=== PATIENT | male | born 1975 | race Caucasian/White ===

== ENCOUNTER 2022-06-07 10:30 | Emergency (ER) | payer BC, SELFPAY ==
--- NOTE | 2022-06-07 | CRLHL7_ITS ---
For Patients: As a result of the Century Cures Act, medical imaging exams and procedure reports are released immediately into your electronic medical record. You may view this report before your referring provider. If you have questions, please contact your health care provider. DATE: 06/07/2022. CLINICAL HISTORY: Headache. TECHNIQUE: Standard helical CT image acquisition of the brain was performed. COMPARISON: None available. FINDINGS: There is no intracranial hemorrhage. No extra-axial collection, mass effect, or midline shift. Mullen-white matter differentiation is preserved. The ventricles are normal in size and morphology for patient age. The calvarium is unremarkable. The orbits are unremarkable. Mild mucosal thickening of the maxillary sinuses with a mucous retention cyst in the left maxillary sinus. The mastoid air cells are unremarkable. The soft tissues are unremarkable. IMPRESSION: No CT evidence of acute intracranial abnormality. Please note that all CT scans at this facility use dose modulation, iterative reconstruction, and/or weight-based dosing when appropriate to reduce radiation dose to as low as reasonably achievable. Dictated by Pedro Ren MD @ 06/07/2022 12:29:17 PM (Electronically Signed)
[2022-06-07 10:35] VITALS: BP 126/83; PULSE 62; RESP 20; TEMP 36.3; O2SAT 99; BMI 40.4
--- NOTE | 2022-06-07 10:57 | CRLHL7_ITS ---
For Patients: As a result of the Century Cures Act, medical imaging exams and procedure reports are released immediately into your electronic medical record. You may view this report before your referring provider. If you have questions, please contact your health care provider. DATE: 06/07/2022. CLINICAL HISTORY: Headache; concern for vertebral artery dissection. TECHNIQUE: Standard helical CT image acquisition through the head and neck following the administration of intravenous contrast was performed. Multiplanar reconstructed images performed on a separate workstation. COMPARISON: None available. FINDINGS: The great vessels are patent. The common carotid arteries are patent. The proximal ICAs are patent without signficant stenoses by NASCET criteria. The more distal cervical ICAs are patent. The origins of the vertebral arteries are patent. The cervical segments of the vertebral arteries are patent. The petrous, cavernous, and supraclinoid segments of the internal carotid arteries are patent. The anterior and middle cerebral arteries are patent. The anterior communicating artery is visualized and is within normal limits. The intracranial vertebral arteries, basilar trunk, and posterior cerebral arteries are patent. No intracranial proximal large vessel occlusion or flow-limiting luminal stenosis. No evidence of cerebral aneurysm. No findings to suggest an arterial-venous shunting lesion. IMPRESSION: 1. No intracranial proximal large vessel occlusion or flow-limiting luminal stenosis. 2. Patent cervical arterial vasculature without hemodynamically significant luminal stenosis. Please note that all CT scans at this facility use dose modulation, iterative reconstruction, and/or weight-based dosing when appropriate to reduce radiation dose to as low as reasonably achievable. Dictated by Pedro Ren MD @ 06/07/2022 12:37:19 PM (Electronically Signed)
--- NOTE | 2022-06-07 10:57 | CRLHL7_ITS ---
For Patients: As a result of the Cures Act, medical imaging exams and procedure reports are released immediately into your electronic medical record. You may view this report before your referring provider. If you have questions, please contact your health care provider. DATE: 06/07/2022. CLINICAL HISTORY: Headache and neck pain. TECHNIQUE: Helical CT acquisition of the cervical spine was performed. Coronal and sagittal reformations were performed and interpreted. COMPARISON: None available. FINDINGS: There is no evidence of acute displaced fracture or traumatic malalignment of the cervical spine. The facets are well aligned. Vertebral body heights are maintained without evidence of significant compression deformity. No evidence of significant trauma at the craniocervical junction. Cervical spondylosis with straightening of the alignment of the cervical spine which may reflect patient positioning versus muscle spasm. No evidence of severe spinal canal stenosis. The visualized prevertebral soft tissues are unremarkable. IMPRESSION: 1. No acute displaced fracture or traumatic malalignment of the cervical spine. 2. Cervical spondylosis without evidence of severe spinal canal stenosis. Please note that all CT scans at this facility use dose modulation, iterative reconstruction, and/or weight-based dosing when appropriate to reduce radiation dose to as low as reasonably achievable. Dictated by Pedro Ren MD @ 06/07/2022 12:34:46 PM (Electronically Signed)
--- NOTE | 2022-06-07 11:09 | ED.GENADULT ---
HPI - General Adult General Chief complaint: Headache/Migraine Stated complaint: Headaches after going to chiro Time Seen by Provider: 06/07/22 10:38 History of Present Illness HPI narrative: Patient is a 46 year white male who has a history of headaches from an accident. He started to get them in 2019 in 2020. He had a little bit of a headache this week went to a chiropractor had some thumping type procedure done, subsequently had severe neck pain and headache in his occipital area, went back to the chiropractor and got manipulation. He seems a little bit better reports his pain is a 2/10 right now in terms of in his occipital area. He does not have any radicular symptoms, has no chills, fever, thunderclap nature to his neck discomfort but he did report the headache started fairly suddenly lasted for about 20 minutes and then got somewhat improved. He denies neurologic symptoms during that time he felt he could not drive at that time. His vision was normal and no loss of consciousness. His is a nurse at as long-term care and she was concerned as hers is family history of aneurysms in the family. He is generally quite healthy, has no hypertension, takes no home medications Related Data Allergies Allergy/AdvReac Type Severity Reaction Status Date / Time No Known Drug Allergies Allergy Verified 06/07/22 10:35 Review of Systems Status of ROS: Reports: 10 or more systems reviewed and unremarkable except as noted in History and below PFSH PFS Social History Smoking Status: Former smoker What tobacco products do you use: cigarettes Years smoked: 26 Do you use any of these nicotine containing products: None Second hand tobacco smoke exposure: Yes How often do you have a drink containing alcohol: 2-4 times a month How many standard drinks containing alcohol do you have on a typical day: 3 or 4 How often do you have six or more drinks on one occasion: Never AUDIT-C Alcohol total score: 3 Non-prescribed substance use: denies use service: No Exam Narrative: Exam Narrative: Objective: Vital signs unremarkable HEENT is unremarkable facial asymmetry pupils react to light extraocular moves intact Neck is supple nontender full range of motion Occipital area shows no tenderness or redness or rash Neurologic nonfocal upper extremities pulse regular Good peripheral perfusion noted skin warm and dry. Const: Vital Signs, click to edit/add: Vital Signs - 24 hr 06/07/22 10:35 06/07/22 12:00 06/07/22 12:30 Temperature 97.3 F L Pulse Rate [Pulse Oximeter] 62 65 68 Respiratory Rate 20 20 20 Blood Pressure [Ri ght Forearm] 126/83 126/83 141/89 H Pulse Oximetry 99 98 97 Oxygen Delivery Me thod Room Air Room Air Course Vital Signs Vital signs: Initial Vital Signs Temperature 97.3 F L 06/07/22 10:35 Temperature Source Temporal Artery Scan 06/07/22 10:35 Pulse Rate 62 06/07/22 10:35 Pulse Rhythm 06/07/22 10:35 Respiratory Rate 20 06/07/22 10:35 Blood Pressure 126/83 06/07/22 10:35 Blood Pressure Mean 97 06/07/22 10:35 Pulse Oximetry 99 06/07/22 10:35 Oxygen Delivery Method 06/07/22 10:35 Vital Signs Temperature 97.3 F L 06/07/22 10:35 Pulse Rate 62 06/07/22 10:35 Respiratory Rate 20 06/07/22 10:35 Blood Pressure 126/83 06/07/22 10:35 Pulse Oximetry 99 06/07/22 10:35 Oxygen Delivery Method 06/07/22 10:35 Temperature 97.3 F L 06/07/22 10:35 Pulse Rate 68 06/07/22 12:30 Respiratory Rate 20 06/07/22 12:30 Blood Pressure 141/89 H 06/07/22 12:30 Pulse Oximetry 97 06/07/22 12:30 Oxygen Delivery Method 06/07/22 12:00 Medical Decision Making [facility] Narrative Medical decision making narrative: Patient is a 46-year-old male with sudden onset of headache after chiropractic treatment. He has had a history of headaches, but this seems a little different than past headaches he has had a little residual neck discomfort. I think initially he did not have manipulation, but the 2nd visit after his headache he did have manipulation, and I think ruling out vertebral artery dissection would be appropriate as well as any injury to the neck or head. Will do a head CT as well as CTA of the head neck, and had dedicated neck CT scan. Will give him IV fluid 2 mg of IV morphine, check labs. Disposition pending findings above. Addendum: The patient's CT of the neck and head in vasculature of the neck were unremarkable. His labs look relatively reassuring. He feels like his headache as 04/08. He I think is had a complete workup, will given additional Toradol to 30 mg IV. He will follow-up with Dr. Ye next Thursday, and will continue some ibuprofen and Tylenol as needed. He will return if there is problems or concerns. Lab Data Labs: Lab Results 06/07/22 06/07/22 06/07/22 Range/Units 11:10 11:10 11:10 WBC 9.09 (4.50-11.00) K/uL RBC 5.15 (4.30-5.90) m/uL Hgb 14.9 (13.5-17.5) gm/dL Hct 44.6 (37.0-53.0) % MCV 87 (80-100) fL MCH 29 (26-34) pg MCHC 33 (32-36) gm/dL RDW Coeff of Caryn 13.0 (11.5-15.5) % Plt Count 234 (140-440) K/uL Neut % (Auto) 55.2 (42.0-72.0) % Lymph % (Auto) 31.1 (20-44) % [place] % (Auto) 9.7 (0.0-11.0) % Eos % (Auto) 3.3 (0.0-7.0) % Baso % (Auto) 0.4 (0.0-3.0) % Neut # (Auto) 5.01 (1.7-7.0) K/uL Lymph # (Auto) 2.83 (0.90-2.90) K/uL [place] # (Auto) 0.90 (0.00-0.90) K/UL Eos # (Auto) 0.30 (0.00-0.50) K/uL Baso # (Auto) 0.04 (0.00-0.30) K/uL Sodium 139 (135-149) mmol/L Potassium 4.4 (3.6-5.1) mmol/L Chloride 106 (96-114) mmol/L Carbon Dioxide 28 (20-32) mmol/L BUN 12 (5-24) mg/dL Creatinine 1.0 (0.5-1.5) mg/dL Estimated Creat Clear 97.26 Estimated GFR 93 ml/min Glucose 116 H (60-115) mg/dL Calcium 8.7 (8.4-10.6) mg/dL Total Bilirubin 0.6 (0.1-1.5) mg/dL Direct Bilirubin 0.2 (0.0-0.5) mg/dL AST 44 H (12-35) U/L ALT 73 H (4-50) U/L Alkaline Phosphatase 79 (40-150) U/L C-Reactive Protein 0.7 (0.5-1.0) mg/dL Total Protein 6.9 (6.0-8.3) g/dL Albumin 4.1 (3.3-5.0) g/dL Discharge Plan Discharge Clinical Impression: Headache, Neck pain Patient Disposition: Home w/ Parent or Adult Condition: Improved Additional Instructions: Light activity for a couple of days, follow-up with Dr. Ye scheduled. Tylenol Advil as needed. Return if problems concerns worsening. Activity Level: Light activity Discharge Diet: Regular Follow Up/Referrals: Clinton Torre MD [Primary Care Provider] - Stand Alone Forms: giftee Info Instructions
[2022-06-07 11:18] LABS: Basophils Absolute Auto 0.04 K/uL (0.00-0.30); Basophils Percent Auto 0.4 % (0.0-3.0); Eosinophils Percent Auto 3.3 % (0.0-7.0); Hematocrit 44.6 % (37.0-53.0); Hemoglobin* 14.9 gm/dL (13.5-17.5); Immature Granulocytes Abs Auto 0.03 K/uL (0.00-0.30); Immature Granulocytes Pct Auto 0.3 %; Lymphocytes Absolute Auto 2.83 K/uL (0.90-2.90); Lymphocytes Percent Auto 31.1 % (20-44); Mean Corpuscular HGB Conc 33 gm/dL (32-36); Mean Corpuscular Hemoglobin 29 pg (26-34); Mean Corpuscular Volume 87 fL (80-100); Monocytes Percent Auto 9.7 % (0.0-11.0); Neutrophils Absolute Auto 5.01 K/uL (1.7-7.0); Neutrophils Percent Auto 55.2 % (42.0-72.0); Platelet Count* 234 K/uL (140-440); Red Blood Count 5.15 m/uL (4.30-5.90); White Blood Count* 9.09 K/uL (4.50-11.00)
[2022-06-07 11:20] LABS: Slide Review Reflex No
[2022-06-07] MEDS: MORPHINE 4 MG/ML INJ 2 MG IVP (11:34)
[2022-06-07] MEDS: 0.9 % SODIUM CHLORIDE 1000 ml 1,000 ML 6000 ML IV (11:34)
[2022-06-07] MEDS: METHYLPREDNISOLONE SOD SUCC 62.5 MG/ML (125) 125 MG IVP (11:34)
[2022-06-07 11:37] LABS: Chloride* 106 mmol/L (96-114); Potassium* 4.4 mmol/L (3.6-5.1); Sodium* 139 mmol/L (135-149)
[2022-06-07 11:40] LABS: Blood Urea Nitrogen* 12 mg/dL (5-24); Calcium* 8.7 mg/dL (8.4-10.6); Carbon Dioxide* 28 mmol/L (20-32); Est. Creatinine Clearance* 97.26; Estimated Glomerular Filt Rate 93 ml/min; Glucose* 116 mg/dL (60-115)
[2022-06-07 11:48] LABS: Albumin* 4.1 g/dL (3.3-5.0)
[2022-06-07 11:51] LABS: Bilirubin Direct* 0.2 mg/dL (0.0-0.5); Bilirubin Total* 0.6 mg/dL (0.1-1.5)
[2022-06-07 11:52] LABS: Alanine Aminotransferase* 73 U/L (4-50); Alkaline Phosphatase* 79 U/L (40-150); Aspartate Amino Transferase* 44 U/L (12-35); Total Protein* 6.9 g/dL (6.0-8.3)
[2022-06-07 11:54] LABS: C Reactive Protein* 0.7 mg/dL (0.5-1.0)
[2022-06-07 12:00] VITALS: BP 126/83; PULSE 65; RESP 20; O2SAT 98
[2022-06-07 12:30] VITALS: BP 141/89; PULSE 68; RESP 20; O2SAT 97
[2022-06-07] MEDS: KETOROLAC 30 MG/ML inj IVP (12:57)
== END 2022-06-07 13:03 | disposition home or self-care (01) ==
PROVIDERS: Emergency Provider Family Medicine; PCP Family Medicine
DX: R51.9 Headache, unspecified (principal); M54.2 Cervicalgia
CPT/HCPCS: 36415; 70450; 70496; 70498; 72125; 80048; 80076; 85025; 86140; 96374; 96375; 96376; 99284; J1885; J2270; J2930; J7030; Q9967

== ENCOUNTER 2023-07-15 11:20 | Outpatient (CLI) | payer BC, SELFPAY ==
--- OUTSIDE RECORDS SUMMARY | 2023-07-20 09:03 | XMS_ITS | Encounter Summary ---
Author Name Unknown Organization [facility] Address [address] [place] [address] Care Team Providers Care Systems Test Technician Name Role Phone Binu Torre MD Primary Care Provider Encounter Details Date Type Department Care Team (Late st Contact Info) Description 05/23/2016 Consent for Procedure/Treatme nt [facility] INFORMED CONSENT RECORD Social History Tobacco Use Types Packs/Day Years Used Date Smoking Tobacco: Every Day Cigarettes 1 20 Smokeless Tobacco: Former Comments:3-4 cigarettes/day, trying to quit Alcohol Use Standard Drinks/Week Comments No 0 (1 standard drink = 0.6 oz pur e alcohol) few drinks, every few weekends Sex and Gender Information Value Date Recorded Sex Assigned at Not on file Gender Identity Not on file Sexual Orientation Not on file documented as of this encounter Plan of Treatment Not on file documented as of this encounter Visit Diagnoses Not on filedocumented in this encounter Care Teams Systems Test Technician Relationship Specialty Start Date End Date Binu Torre MD [facility] [address] [place] [id number] PCP - General Family Practice 11/07/16 documented as of this encounter
--- OUTSIDE RECORDS SUMMARY | 2023-07-20 09:03 | XMS_ITS | Encounter Summary ---
Author Name Unknown Organization [facility] Address [address] [place] [address] Care Team Providers Care Precision Structural Metal Fitter Name Role Phone Binu Torre MD Primary Care Provider [phone] Encounter Details Date Type Department Care Team (Late st Contact Info) Description 10/14/2016 Consent for Procedure/Treatme nt [facility] INFORMED [...] on filedocumented in this encounter Care Teams Precision Structural Metal Fitter Relationship Specialty Start Date End Date Binu Torre MD [facility] [address] [place] [address] PCP - General Family Practice 11/07/16 documented as of this encounter
--- OUTSIDE RECORDS SUMMARY | 2023-07-20 09:03 | XMS_ITS | Encounter Summary ---
Author Name Unknown Organization [facility] Address [address] [place] [address] Care Team Providers Care Agricultural Service Technician Name Role Phone Binu Torre MD Primary Care Provider [phone] Encounter Details Date Type Department Care Team (Late st Contact Info) Description 10/25/2015 Consent for Procedure/Treatme nt [facility] INFORMED CONSENT RECORD Social History Tobacco Use Types Packs/Day Years Used Date Smoking Tobacco: Every Day Cigarettes Comments:3-4 cigarettes/day, trying to quit Alcohol Use [...] on filedocumented in this encounter Care Teams Agricultural Service Technician Relationship Specialty Start Date End Date Binu Torre MD [facility] [address] [place] [address] PCP - General Family Practice 11/07/16 documented as of this encounter
--- OUTSIDE RECORDS SUMMARY | 2023-07-20 09:03 | XMS_ITS | Encounter Summary ---
Author Name Unknown Organization [facility] Address [address] [place] [address] Care Team Providers Care Sales Closer Name Role Phone Binu Torre MD Primary Care Provider [phone] Encounter Details Date Type Department Care Team (Late st Contact Info) Description 04/02/2016 Correspondence [facility] [address] [place] [id number] Radiology, Provider MRI SAFETY SHEET AND COMPATIBILITY FORM Social History Tobacco Use Types Packs/Day Years [...] on filedocumented in this encounter Care Teams Sales Closer Relationship Specialty Start Date End Date Binu Torre MD [facility] [address] [place] [address] PCP - General Family Practice 11/07/16 documented as of this encounter
--- OUTSIDE RECORDS SUMMARY | 2023-07-20 09:03 | XMS_ITS | Encounter Summary ---
Author Name Unknown Organization [facility] Address [address] [place] [address] Care Team Providers Care Metal Bending Machine Operator Name Role Phone Binu Torre MD Primary Care Provider [phone] Encounter Details Date Type Department Care Team (Late st Contact Info) Description 09/08/2015 Correspondence [facility] [address] [place] [id number] Radiology, Provider MRI SAFETY SHEET AND COMPATIBILITY FORM Social History Tobacco Use Types Packs/Day Years Used Date Smoking Tobacco: Never Assessed Sex and Gender Information Value Date Recorded Sex Assigned at Not on file Gender Identity Not on file Sexual Orientation Not on file documented as of this encounter Plan of Treatment Not on file documented as of this encounter Visit Diagnoses Not on filedocumented in this encounter Care Teams Metal Bending Machine Operator Relationship Specialty Start Date End Date Binu Torre MD [facility] [address] [place] [address] PCP - General Family Practice 11/07/16 documented as of this encounter
--- OUTSIDE RECORDS SUMMARY | 2023-07-20 09:03 | XMS_ITS | Encounter Summary ---
Author Name Unknown Organization [facility] Address [address] [place] [address] Care Team Providers Care Book Salesman Name Role Phone Binu Torre MD Primary Care Provider [phone] Encounter Details Date Type Department Care Team (Late st Contact Info) Description 11/27/2015 [facility] [address] [facility] [place] [address] Leo Lujan, DO [address] [place] [address] MEDICAL STATUS Social History Tobacco Use Types Packs/Day Years Used Date Smoking Tobacco: Every Day Cigarettes 1 20 Comments:3-4 cigarettes/day, trying to quit Alcohol Use [...] on filedocumented in this encounter Care Teams Book Salesman Relationship Specialty Start Date End Date Binu Torre MD [facility] [address] [place] [address] PCP - General Family Practice 11/07/16 documented as of this encounter
--- OUTSIDE RECORDS SUMMARY | 2023-07-20 09:03 | XMS_ITS | Encounter Summary ---
Author Name Unknown Organization [facility] Address [address] [place] [address] Care Team Providers Care Supervisor Telephone Answering Service Name Role Phone Binu Torre MD Primary Care Provider [phone] Encounter Details Date Type Department Care Team (Late st Contact Info) Description 07/02/2016 [facility] [address] [facility] [place] [address] Leo Lujan, DO [address] [place] [address] CONFIRMATION OF ORDER Social History Tobacco Use Types Packs/Day Years [...] on filedocumented in this encounter Care Teams Supervisor Telephone Answering Service Relationship Specialty Start Date End Date Binu Torre MD [facility] [address] [place] [address] PCP - General Family Practice 11/07/16 documented as of this encounter
--- OUTSIDE RECORDS SUMMARY | 2023-07-20 09:03 | XMS_ITS | Encounter Summary ---
Author Name Unknown Organization [facility] Address [address] [place] [address] Care Team Providers Care 8Th Grade Teacher Name Role Phone Binu Torre MD Primary Care Provider [phone] Encounter Details Date Type Department Care Team (Late st Contact Info) Description 09/25/2015 Consent for Procedure/Treatment [facility] Social History Tobacco Use Types Packs/Day Years [...] on filedocumented in this encounter Care Teams 8Th Grade Teacher Relationship Specialty Start Date End Date Binu Torre MD [facility] [address] [place] [address] PCP - General Family Practice 11/07/16 documented as of this encounter
--- OUTSIDE RECORDS SUMMARY | 2023-07-20 09:03 | XMS_ITS | Encounter Summary ---
Author Name Unknown Organization [facility] Address [address] [place] [address] Care Team Providers Care Seat Covers Trimmer Name Role Phone Binu Torre MD Primary Care Provider Encounter Details Date Type Department Care Team (Late st Contact Info) Description 09/10/2015 Consent for Procedure/Treatme nt [facility] INFORMED CONSENT RECORD Social History Tobacco Use Types Packs/Day Years Used Date Smoking Tobacco: Every Day Cigarettes Comments:2-3 cigarettes/day, trying to quit Alcohol Use Standard Drinks/Week Comments Yes 0 (1 standard drink = 0.6 oz [...] on filedocumented in this encounter Care Teams Seat Covers Trimmer Relationship Specialty Start Date End Date Binu Torre MD [facility] [address] [place] [address] PCP - General Family Practice 11/07/16 documented as of this encounter
--- OUTSIDE RECORDS SUMMARY | 2023-07-20 09:03 | XMS_ITS | Encounter Summary ---
Author Name Unknown Organization [facility] Address [address] [place] [address] Care Team Providers Care Timber Deadener Name Role Phone Binu Torre MD Primary Care Provider [phone] Encounter Details Date Type Department Care Team (Late st Contact Info) Description 10/03/2015 [facility] [address] [facility] [place] [address] Leo Lujan, DO [address] [place] [address] CONFIRMATION OF ORDER Social History Tobacco Use [...] on filedocumented in this encounter Care Teams Timber Deadener Relationship Specialty Start Date End Date Binu Torre MD [facility] [address] [place] [address] PCP - General Family Practice 11/07/16 documented as of this encounter
--- OUTSIDE RECORDS SUMMARY | 2023-07-20 09:03 | XMS_ITS | Encounter Summary ---
Author Name Unknown Organization [facility] Address [address] [place] [address] Care Team Providers Care Relay Tester Helper Name Role Phone Binu Torre MD Primary Care Provider [phone] Encounter Details Date Type Department Care Team (Late st Contact Info) Description 05/23/2016 [facility] [address] [facility] [place] [address] Leo Lujan, DO [address] [place] [address] ARTHROSCOPY Social History Tobacco Use Types Packs/Day Years [...] on filedocumented in this encounter Care Teams Relay Tester Helper Relationship Specialty Start Date End Date Binu Torre MD [facility] [address] [place] [address] PCP - General Family Practice 11/07/16 documented as of this encounter
--- OUTSIDE RECORDS SUMMARY | 2023-07-20 09:03 | XMS_ITS | Encounter Summary ---
Author Name Unknown Organization [facility] Address [address] [place] [address] Care Team Providers Care Steam Boiler Fireman Name Role Phone Binu Torre MD Primary Care Provider [phone] Encounter Details Date Type Department Care Team (Late st Contact Info) Description 05/06/2016 Consent for Procedure/Treatment [facility] Social History [...] on filedocumented in this encounter Care Teams Steam Boiler Fireman Relationship Specialty Start Date End Date Binu Torre MD [facility] [address] [place] [address] PCP - General Family Practice 11/07/16 documented as of this encounter
--- OUTSIDE RECORDS SUMMARY | 2023-07-20 09:03 | XMS_ITS | Clinical Summary ---
Author Name Unknown Organization [facility] Address [address] [address] Care Team Providers Care Laboratory Administrative Director Name Role Phone Binu Torre MD Primary Care Provider [phone] Source Comments You are receiving this document as you are listed as the primary care provider,follow-up provider, or the patient has been referred to you for consultation.This is in compliance with the Medicare and[facility] EHR Incentive Program,which states Providers who transition their patient to another setting of careor provider of care or refers their patient to another provider of care shouldprovide summary care record for each transition of care or referral. [facility] Allergies No known active allergies Medications Medication Sig Dispensed Refills Start Date End Date Status omega-3 fatty acids (AKA MAXEPA, FISH OIL) 1000 MG capsule Take 2 g by mouth daily. Reported on 04/01/2016 Active Multiple Vitamins-Iron (MULTIVITAMIN/IRON OR) Reported on 04/01/2016 Acti ve methocarbamol (AKA ROBAXIN) 500 MG tablet Take 1 Tab by mouth three times a day. 90 Tab 1 09/11/2015 Active Additional Information Patient not taking.Reported on 11/20/2016 sennosides-docusate sodium (AKA SENNA-S,SENNA PLUS) 8.6-50 MG tablet Take 2 Tabs by mouth two times a day. For constipation while taking narcotic medications, hold for loose stool 60 Tab 1 09/11/2015 Active Additional Information Patient not taking.Reported on 11/20/2016 polyethylene glycol (AKA MIRALAX) packet Take 1 Packet by mouth two times a day. 12 Each 0 09/12/2015 Active Additional Information Patient not taking.Reported on 01/13/2017 acetaminophen (AKA TYLENOL EXTRA STRENGTH) 500 MG tablet Take 2 Tabs by mouth three times a day. 100 Tab 3 10/10/2015 Active Additional Information Patient not taking.Reported on 11/20/2016 oxyCODONE (ROXICODONE) 5 MG immediate release tablet Take 1 Tab by mouth every 6 hours as needed for Pain. 10 Tab 0 11/07/2015 Active Additional Information Patient not taking.Reported on 01/13/2017 MORphine (MS CONTIN) 15 MG 12 hour release tablet Take 1 Tab by mouth two times a day. 10 Tab 0 11/15/2015 Active Additional Information Patient not taking.Reported on 11/20/2016 acetaminophen (TYLENOL) 500 MG tabletIndications:F ever,Pain Take 2 Tabs by mouth three times a day as needed for Pain. Indications: Fever, Pain 100 Tab 3 11/16/2015 Active Additional Information Patient not taking.Reported on 11/20/2016 aspirin 325 MG tabletIndications:B lood thinning properties Take 1 Tab by mouth daily. Indications: Blood thinning properties 40 Tab 0 11/16/2015 Active Additional Information Patient not taking.Reported on 11/20/2016 sennosides-docusate sodium (SENNA-S,SENNA PLUS) 8.6-50 MG per tabletIndications:C onstipation Take 2 Tabs by mouth two times daily as needed for Constipation. Indications: Constipation 60 Tab 0 11/16/2015 Active Additional Information Patient not taking.Reported on 11/20/2016 hydrOXYzine HCl (ATARAX) 25 MG tabletIndications:P ain,itching Take 1 Tab by mouth every 8 hours as needed for Itching or Pain. Indications: Pain, itching 40 Tab 0 12/27/2015 Active Additional Information Patient not taking.Reported on 11/20/2016 oxyCODONE (ROXICODONE) 5 MG immediate release tabletIndications:A cute Pain Take 1 Tab by mouth every 8 hours as needed for Pain. Indications: Acute Pain 30 Tab 0 12/27/2015 Active Additional Information Patient not taking.Reported on 11/20/2016 oxyCODONE (ROXICODONE) 5 MG immediate release tabletIndications:A cute Pain Take 1-2 Tabs by mouth every 4 hours as needed for Pain. Indications: Acute Pain 40 Tab 0 05/23/2016 Active Additional Information Patient not taking.Reported on 11/20/2016 oxyCODONE (ROXICODONE) 5 MG immediate release tablet Take 1 Tab by mouth every 6 hours as needed for Pain. 30 Tab 11/07/2016 Active Additional Information Patient not taking.Reported on 11/20/2016 ketorolac (TORADOL) 10 MG tablet Take 1 Tab by mouth every 6 hours as needed for Pain. 9 Tab 11/07/2016 Active Additional Information Patient not taking.Reported on 11/20/2016 docusate sodium (COLACE) 100 MG capsule Take 1 Cap by mouth two times daily as needed for Constipation. 30 Cap 11/07/2016 Active Additional Information Patient not taking.Reported on 11/20/2016 Active Problems Problem Noted Date Diagnosed Date Complex tear of lateral meni scus of left knee as current injury 05/23/2016 Post-traumatic osteoarthritis of one knee 2016 Status post reconstruction of anterior cruciate ligament 05/06/2016 Injury of posterolateral corner of knee 11/14/19 16 Tear of PCL (posterior cruciate ligament) of kne e 10/25/2015 Rupture of anterior cruciate ligament of left kn ee 10/25/2015 Fracture of shaft of tibia 09/11/2015 Resolved Problems Problem Noted Date Diagnosed Date Resolved Date Rupture of ligament of knee joint 09/11/2015 10/25/2015 Immunizations Name Administration Dates Next Due Tdap 09/08/2015 Family History Relation Name Status Comments Mother aneurisms Social History Tobacco Use Types Packs/Day Years Used Date Smoking Tobacco: Every Day Cigarettes 1 20 Started: 01/27/2017 Smokeless Tobacco: Former Tobacco Cessation:Ready to Q uit: Yes Comments:11/03/16 quit date Alcohol Use Standard Drinks/Week Comments Yes 0 (1 standard drink = 0.6 oz pur e alcohol) few drinks, every few weekends Sex and Gender Information Value Date Recorded Sex Assigned at Not on file Gender Identity Not on file Sexual Orientation Not on file Last Filed Vital Signs Vital Sign Reading Time Taken Comments Blood Pressure 126/72 11/07/2016 4:15 PM CDT Pulse 75 11/07/2016 4:15 PM CDT Temperature 36.3 ??C (97.3 ??F) 11/07/2016 3:39 PM CD T Respiratory Rate 18 11/07/2016 4:15 PM CDT Oxygen Saturation 97% 11/07/2016 4:15 PM CDT Inhaled Oxygen Concentration - - Weight 125.6 kg (277 lb) 11/07/2016 12:09 PM CDT Height 179.1 cm (5' 10.5) 11/07/2016 12:09 PM C DT Body Mass Index 39.18 11/07/2016 12:09 PM CDT Plan of Treatment Health Maintenance Due Date Last Done Comments Colon Cancer Screening Plan Due 1974 Hep C Screening (Preventive Services) 1974 HIV Screening (Preventive Services) 1990 Adult Preventive Visit 1992 HepB (1) 1993 Cholesterol 2009 COVID-19 Vaccine ( - 2022- season) 2022 Influenza (#1) 2022 12/08/2013, 12/09/2011 Zoster/Shingles (1 of 2) 2024 DTaP/Tdap/Td (4 - Tdap) 09/07/2025 09/08/19 16, 12/08/2013, 03/12/2012, Additional history exists HepA Aged Out 08/18/2014, 01/10/2014 No lo nger eligible based on patient's age to complete this topic Hib Aged Out No longer eligi ble based on patient's age to complete this topic IPV (Polio) Aged Out No longer eligi ble based on patient's age to complete this topic MCV4 Aged Out No longer eligi ble based on patient's age to complete this topic Pneumococcal Aged Out No longer eligi ble based on patient's age to complete this topic Medical Devices Implanted Type Area Gas Pumper Device Identifier Shelf Expiration Date Model / Serial / Lot Bone Tendon Achilles 19.5-38 - [id number] Implanted:Qty: 1 on 11/14/2015 by Leo Lujan DO at [facility] Left: KNEE MTF 03/30/2019 [id number] / [id number] / Semitendinosus Tendon Implanted:Qty: 1 on 11/14/2015 by Leo Lujan DO at [facility] [employer] Left: KNEE Musculoskeletal Transplant Fnd 09/26/2019 [id number] / [id number] / Bone Tib Tendon Post - [id number] Implanted:Qty: 1 on 11/14/2015 at [facility] [employer] Left: KNEE Musculoskeletal Transplant Fnd 10/07/2018 [id number] / [id number] / NA Simone Rmr [address] 2.5x650 - [id number] Implanted:Qty: 1 on 09/08/2015 by Monie Ortiz MD at [facility] DEVICE Left: TIBIA MIDSHAFT J&J DePuy Synthes - Trauma 06/27/2024 351.709S / / [id number] Nail Tib Ti [address] 9.0x330 - [id number] Implanted:Qty: 1 on 09/08/2015 by Monie Ortiz MD at [facility] [employer] Left: TIBIA MIDSHAFT DePuy Synthes - Trauma 03/29/2024 04.004.3 46S / / [id number] Endcap Ti T40 Ex Gry 10mm - [id number] Implanted:Qty: 1 on 09/08/2015 by Monie Ortiz MD at [facility] [employer] Left: TIBIA PROXIMAL DePuy Synthes - Trauma 04.004.0 10 / / Sut [place] Superquick - [id number] Implanted:Qty: 1 on 09/08/2015 by Monie Ortiz MD at [facility] [employer] Left: TIBIA PROXIMAL DePuy Synthes - Trauma 01/27/2018 [id number] / / [id number] Scr Tyelr 4.0x40 Lng-Thrd - [id number] Implanted:Qty: 2 on 09/08/2015 by Monie Ortiz MD at [facility] [employer] Left: ANKLE J 207.740 / / Scr Lk Ti T25 4.0x30 - [id number] Implanted:Qty: 1 on 09/08/2015 at [facility] [employer] Left: TIBIA MIDSHAFT J&J DePuy Synthes - Trauma 04.005.4 20 / / Scr Lk Ti T25 4.0x38 - [id number] Implanted:Qty: 1 on 09/08/2015 at [facility] Left: TIBIA MIDSHAFT J&J DePuy Synthes - Trauma 04.005.4 28 / / Scr Lk Ti T25 4.0x42 - [id number] Implanted:Qty: 1 on 09/08/2015 at [facility] [employer] Left: TIBIA PROXIMAL J 04.005.4 32 / / Pin [place] Half Sfdr Ss 5x150 - [id number] Implanted:Qty: 2 on 09/10/2015 by Monie Ortiz MD at [facility] [employer] Left: LEG [employer] 5018-5-1 50 / / Simone Carbon Conn 70j072 - [id number] Implanted:Qty: 1 on 09/10/2015 at [facility] [employer] Left: LEG [employer] [employer] 4922-8-4 50 / / Pin [place] Half Sfdr Ss 5x180 - [id number] Implanted:Qty: 2 on 09/10/2015 by Monie Ortiz MD at [facility] Left: LEG [place] [employer] 5018-6-1 80 / / Tightrope Acl Rt W/Dbly Sut - [id number] Implanted:Qty: 1 on 11/14/2015 by Leo Lujan DO at [facility] Left: KNEE [employer] Inc 04/29/2020 AR-1588R T-J / / [id number] Tightrope Acl Abs - [id number] Implanted:Qty: 1 on 11/14/2015 by Leo Lujan DO at [facility] [employer] Left: KNEE [employer] 07/27/2020 AR-1588T N / / [id number] Tightrope Acl Pcl - [id number] Implanted:Qty: 1 on 11/14/2015 by Leo Lujan DO at [facility] [employer] Left: KNEE [employer] 02/27/2020 AR-1588T P / / [id number] Scr Biocompos Interfr 6.0x23 - [id number] Implanted:Qty: 1 on 11/14/2015 by Leo Lujan DO at [facility] Left: KNEE [employer] 05/27/2017 AR-1360C / / [id number] Scr Biotendesis Swivelock - [id number] Implanted:Qty: 1 on 11/14/2015 by Leo Lujan DO at [facility] Left: KNEE [employer] 12/27/2016 AR-1662B C / / [id number] Tightrope Acl Rt W/Dbly Sut - [id number] Implanted:Qty: 1 on 11/14/2015 by Leo Lujan DO at [facility] Left: KNEE [employer] 05/27/2020 AR-1588R T-J / / [id number] Tightrope Acl 8x12 - [id number] Implanted:Qty: 1 on 11/14/2015 by Leo Lujan DO at [facility] Left: KNEE [employer] 06/27/2020 AR-1588T B / / [id number] Description:BUTTON Scr Rnd Delta Biocompo 11.0x28 - [id number] Implanted:Qty: 1 on 11/14/2015 by Leo Lujan DO at [facility] Left: KNEE [employer] Inc 12/27/2016 AR-5028C -11 / / [id number] [place] Bio Swivel Lk 4.75x19.1 - [id number] Implanted:Qty: 1 on 11/14/2015 by Leo Lujan DO at [facility] Left: KNEE [employer] 06/27/2017 AR-2324B CCT / / [id number] Scr Rnd Delta Biocompo 8.0x28 - [id number] Implanted:Qty: 1 on 11/14/2015 by Leo Lujan DO at [facility] Left: KNEE [employer] 06/27/2017 AR-5028C -08 / / [id number] [place] Button Passport 8x60 - [id number] Implanted:Qty: 1 on 11/14/2015 at [facility] DEVICE Ar[employer] 04/29/2020 AR-6592 - 08-60 / / [id number] Advance Directives * Full Code (Latest Code Status on File) Date Activated Date Inactivated Comments 11/14/2015 9:22 PM 11/16/2015 6:59 PM * Full Code Date Activated Date Inactivated Comments 09/10/2015 2:35 PM 09/12/2015 5:05 PM * Full Code Date Activated Date Inactivated Comments 09/08/2015 10:55 PM 09/10/2015 2:35 PM * Full Code Date Activated Date Inactivated Comments 09/08/2015 3:19 PM 09/08/2015 10:55 PM Care Teams Laboratory Administrative Director Relationship Specialty Start Date End Date Binu Torre MD [facility] [address] [place] [address] PCP - General Family Practice 11/07/16
--- OUTSIDE RECORDS SUMMARY | 2023-07-20 09:03 | XMS_ITS | Encounter Summary ---
Author Name Unknown Organization [facility] Address [address] [place] [address] Care Team Providers Care Founder / Ceo Name Role Phone Binu Torre MD Primary Care Provider [phone] Encounter Details Date Type Department Care Team (Late st Contact Info) Description 10/16/2016 Correspondence Orthopedics at [facility] Orthopedic [place] [address] [place] [address] Leo Lujan, DO [address] [place] [address] DISABILITY LETTER Social History Tobacco Use Types Packs/Day Years [...] on filedocumented in this encounter Care Teams Founder / Ceo Relationship Specialty Start Date End Date Binu Torre MD [facility] [address] [place] [address] PCP - General Family Practice 11/07/16 documented as of this encounter
--- OUTSIDE RECORDS SUMMARY | 2023-07-20 09:03 | XMS_ITS | Encounter Summary ---
Author Name Unknown Organization [facility] Address [address] [place] [address] Care Team Providers Care Information Services Manager Name Role Phone Binu Torre MD Primary Care Provider [phone] Encounter Details Date Type Department Care Team (Latest Contact Info) Description 05/06/2016 Consent for Procedure/Treatme nt [facility] [address] [place] [address] Monie Ortiz MD [address] [place] [address] [phone] RH INFORMED CONSENT Social History Tobacco Use Types Packs/Day Years [...] on filedocumented in this encounter Care Teams Information Services Manager Relationship Specialty Start Date End Date Binu Torre MD [facility] [address] [place] [address] PCP - General Family Practice 11/07/16 documented as of this encounter
--- OUTSIDE RECORDS SUMMARY | 2023-07-20 09:03 | XMS_ITS | Encounter Summary ---
Author Name Unknown Organization [facility] Address [address] [place] [address] Care Team Providers Care Leather Drier Name Role Phone Binu Torre MD Primary Care Provider [phone] Encounter Details Date Type Department Care Team ([facility] st Contact Info) Description 11/07/2016 Correspondence [facility] [address] [place] [address] Monie Ortiz MD [address] [place] [address] [phone] LEFT ANKLE ARTHROSCOPY Social History Tobacco Use Types Packs/Day [...] on filedocumented in this encounter Care Teams Leather Drier Relationship Specialty Start Date End Date Binu Torre MD [facility] [address] [place] [address] PCP - General Family Practice 11/07/16 documented as of this encounter
--- OUTSIDE RECORDS SUMMARY | 2023-07-20 09:03 | XMS_ITS | Encounter Summary ---
Author Name Unknown Organization [facility] Address [address] [place] [address] Care Team Providers Care Annealing Furnace Tender Name Role Phone Binu Torre MD Primary Care Provider [phone] Encounter Details Date Type Department Care Team (Late st Contact Info) Description 11/01/2015 Correspondence External to External, [place] [address] PRIOR AUTHORIZATION Social History Tobacco Use Types Packs/Day Years [...] on filedocumented in this encounter Care Teams Annealing Furnace Tender Relationship Specialty Start Date End Date Binu Torre MD [facility] [address] [place] [address] PCP - General Family Practice 11/07/16 documented as of this encounter
--- OUTSIDE RECORDS SUMMARY | 2023-07-20 09:03 | XMS_ITS | Encounter Summary ---
Author Name Unknown Organization [facility] Address [address] [place] [address] Care Team Providers Care Multimedia Instructional Designer Name Role Phone Biun Torre MD Primary Care Provider [phone] Encounter Details Date Type Department Care Team (Late st Contact Info) Description 11/14/2015 [facility]ence [facility] [address] [place] [address] Leo Lujan, DO [address] [place] [address] LEFT KNEE ARTHROSCOPY Social History Tobacco Use Types Packs/Day [...] on filedocumented in this encounter Care Teams Multimedia Instructional Designer Relationship Specialty Start Date End Date Binu Torre MD [facility] [address] [place] [address] PCP - General Family Practice 11/07/16 documented as of this encounter
--- OUTSIDE RECORDS SUMMARY | 2023-07-20 09:03 | XMS_ITS | Clinical Summary ---
Author Name Unknown Organization [facility] Address [place], [place] [address] Care Team Providers Care Envelope Folding Machine Adjuster Name Role Phone Leo Lujan DO Primary Care Provider [phone] Allergies No known active allergies Medications Medication Sig Dispensed Refills Start Date End Date Status acetaminophen (TYLENOL EXTRA STRGTH) 500 mg tablet Take 1,000 mg by mouth. 10/10/2015 Active Active Problems Problem Noted Date Diagnosed Date Left knee pain 12/29/2016 s/p left knee open patellar tendon and extensor mechanism repair DOS: 09/08/2015 [facility] 12/29/2016 s/p placement of left knee c losed reduction and placement of left knee spanning external fixator DOS: 09/09/2016 [facility] 12/29/2016 s/p removal of spanning exte rnal fixator of the left knee DOS: 10/10/2015 [facility] 12/29/2016 s/p left knee PCL reconstruc tion with allograft, ACL reconstruction with hamstring allograft, posterior lateral corner reconsruction, peroneal nerve neurolysis, chondroplasty DOS: 11/14/2015 12/29/2016 s/p left knee partial latera l menisectomy DOS: 05/23/2016 [facility] 12/29/2016 Instability of left knee joint 12/29/2016 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 12/29/2016 Primary osteoarthritis of left knee 12/29/2016 Social History Tobacco Use Types Packs/Day Years Used Date Smoking Tobacco: Former Cigarettes Q uit: 07/28/2016 Smokeless Tobacco: Former Alcohol Use Standard Drinks/Week Comments Not Asked 0 (1 standard drink = 0.6 oz pur e alcohol) Sex and Gender Information Value Date Recorded Sex Assigned at Not on file Gender Identity Not on file Sexual Orientation Not on file Obstetrics History Last Filed Vital Signs Vital Sign Reading Time Taken Comments Blood Pressure 108/70 10/13/2010 10:23 AM CDT Pulse 72 10/13/2010 10:23 AM CDT Temperature 36.8 ??C (98.2 ??F) 10/13/2010 10:23 AM C DT Respiratory Rate 20 10/13/2010 10:23 AM CDT Oxygen Saturation 98% 10/13/2010 10:23 AM CDT r/a Inhaled Oxygen Concentration - - Weight 108.9 kg (240 lb) 10/13/2010 10:23 AM CDT Height - - Body Mass Index - - Plan of Treatment Health Maintenance Due Date Last Done Comments Tdap 1985 Depression screening for age 12+ 1986 HIV for age 15-65 1989 BMI (ht and wt on same day) for age 18+ 1992 Hepatitis C screening for ag e 18-79 1992 Tetanus booster 1994 Colonoscopy through age 75 01/01/2020 Lipids for age 45-75 01/01/2020 COVID-19 vaccine series (2022- season) 2022 Influenza for age 9-49 11/29/2023 Pneumococcal series for age 6-64 Aged Out No longer eligible based on patient's age to complete this topic Care Teams Envelope Folding Machine Adjuster Relationship Specialty Start Date End Date Leo Lujan DO PCP - General Surgery - Orthopedics 12/16/16
--- OUTSIDE RECORDS SUMMARY | 2023-07-20 09:03 | XMS_ITS | Encounter Summary ---
Author Name Unknown Organization [facility] Address [address] [place] [address] Care Team Providers Care Edging Machine Operator Name Role Phone Binu Torre MD Primary Care Provider [phone] Encounter Details Date Type Department Care Team (Late st Contact Info) Description 10/16/2016 Correspondence Orthopedics at [facility] Orthopedic [facility] [address] [place] [address] Leo Lujan, DO [address] [place] [address] STATEMENT OF SICKNESS Social History Tobacco Use Types Packs/Day Years [...] on filedocumented in this encounter Care Teams Edging Machine Operator Relationship Specialty Start Date End Date Binu Torre MD [facility] [address] [place] [address] PCP - General Family Practice 11/07/16 documented as of this encounter
--- OUTSIDE RECORDS SUMMARY | 2023-07-20 09:03 | XMS_ITS | Encounter Summary ---
Author Name Unknown Organization [facility] Address [address] [place] [address] Care Team Providers Care Finished Cloth Checker Name Role Phone Binu Torre MD Primary Care Provider [phone] Encounter Details Date Type Department Care Team (Late st Contact Info) Description 09/25/2015 Consent for Procedure/Treatme nt [facility] INFORMED CONSENT Social History Tobacco Use [...] on filedocumented in this encounter Care Teams Finished Cloth Checker Relationship Specialty Start Date End Date Binu Torre MD [facility] [address] [place] [address] PCP - General Family Practice 11/07/16 documented as of this encounter
--- OUTSIDE RECORDS SUMMARY | 2023-07-20 09:03 | XMS_ITS | Encounter Summary ---
Author Name Unknown Organization [facility] Address [address] [place] [address] Care Team Providers Care Bandoleer Packer Name Role Phone Binu Torre MD Primary Care Provider [phone] Encounter Details Date Type Department Care Team [...] on filedocumented in this encounter Care Teams Bandoleer Packer Relationship Specialty Start Date End Date Binu Torre MD [facility] [address] [place] [address] PCP - General Family Practice 11/07/16 documented as of this encounter
--- OUTSIDE RECORDS SUMMARY | 2023-07-20 09:03 | XMS_ITS | Encounter Summary ---
Author Name Unknown Organization [facility] Address [address] [place] [address] Care Team Providers Care Rouge Presser Name Role Phone Binu Torre MD Primary Care Provider Encounter Details Date Type Department Care Team (Late st Contact Info) Description 09/08/2015 Consent for Procedure/Treatme nt [facility] INFORMED [...] on filedocumented in this encounter Care Teams Rouge Presser Relationship Specialty Start Date End Date Binu Torre MD [facility] [address] [place] [address] PCP - General Family Practice 11/07/16 documented as of this encounter
--- OUTSIDE RECORDS SUMMARY | 2023-07-20 09:03 | XMS_ITS | Encounter Summary ---
Author Name Unknown Organization [facility] Address [address] [place] [address] Care Team Providers Care Van Loader Name Role Phone Binu Torre MD Primary Care Provider [phone] Encounter Details Date Type Department Care Team (Late st Contact Info) Description 09/08/2015 Scanned History External to External, [place] [address] [facility] Social History Tobacco Use Types Packs/Day Years Used Date Smoking Tobacco: Never Assessed Sex and Gender Information Value Date Recorded Sex Assigned at Not on file Gender Identity Not on file Sexual Orientation Not on file documented as of this encounter Plan of Treatment Not on file documented as of this encounter Visit Diagnoses Not on filedocumented in this encounter Care Teams Van Loader Relationship Specialty Start Date End Date Binu Torre MD [facility] [address] [place] [address] PCP - General Family Practice 11/07/16 documented as of this encounter
--- OUTSIDE RECORDS SUMMARY | 2023-07-20 09:03 | XMS_ITS | Encounter Summary ---
Author Name Unknown Organization [facility] Address [address] [place] [address] Care Team Providers Care Supervisor Cell Maintenance Name Role Phone Binu Torre MD Primary Care Provider [phone] Encounter Details Date Type Department Care Team (Late st Contact Info) Description 05/10/2016 Correspondence External to External, [place] [address] HISTORY AND PHYSICAL Social History Tobacco Use Types Packs/Day Years [...] filedocumented in this encounter Care Teams Supervisor Cell Maintenance Relationship Specialty Start Date End Date Binu Torre MD [facility] [address] [place] [address] PCP - General Family Practice 11/07/16 documented as of this encounter
== END 2023-07-15 11:21 | disposition home or self-care (01) ==
LOC: NFLDREF 07-20 09:00
PROVIDERS: PCP Family Medicine; Referring Provider Family Medicine; Visit Provider Emergency Medicine
DX: Z13.1 Encounter for screening for diabetes mellitus (principal); Z13.220 Encounter for screening for lipoid disorders; R03.0 Elevated blood-pressure reading, without diagnosis of hypertension; R10.9 Unspecified abdominal pain
CPT/HCPCS: 80053; 80061

== ENCOUNTER 2023-07-23 16:42 | Outpatient (CLI) | payer BC, SELFPAY ==
--- OUTSIDE RECORDS SUMMARY | 2023-07-23 16:45 | XMS_ITS | Clinical Summary ---
Author Name Unknown Organization [facility] Address [address] [place] [address] Care Team Providers Care Box Order Person Name Role Phone Binu Torre MD Primary Care Provider [phone] Source Comments You are receiving this document as you are listed as the primary care provider,follow-up provider, or the patient has been referred to you for consultation.This is in compliance with the Medicare and[facility] EHR Incentive Program,which states Providers who transition their patient to another setting of careor provider of care or refers their patient to another provider of care shouldprovide summary care record for each transition of care or referral. [facility] Allergies No known active allergies Medications Medication [...] this topic Medical Devices Implanted Type Area Manufacture Specialist Device Identifier Shelf Expiration Date Model / Serial / Lot Bone Tendon Achilles 19.5-38 - [id number] Implanted:Qty: 1 on 11/14/2015 by Leo Lujan DO at [facility] Left: KNEE MTF 03/30/2019 [id number] / [id number] / Semitendinosus Tendon Implanted:Qty: 1 on 11/14/2015 by Leo Lujan DO at [facility] Left: KNEE Musculoskeletal Transplant Fnd 09/26/2019 [id number] / [id number] / Bone Tib Tendon Post - [id number] Implanted:Qty: 1 on 11/14/[address] [facility] [employer] Left: KNEE Musculoskeletal Transplant Fnd 10/07/2018 [id number] / [id number] / NA Simone Rmr Balltip [address] 2.5x650 - [id number] Implanted:Qty: 1 on 09/08/2015 by Monie Ortiz MD at [facility] DEVICE Left: TIBIA MIDSHAFT J&J DePuy Synthes - Trauma 06/27/2024 351.709S / / [id number] Nail Tib Ti [address] 9.0x330 - [id number] Implanted:Qty: 1 on 09/08/2015 by Monie Ortiz MD at [facility] DEVICE Left: TIBIA MIDSHAFT DePuy Synthes - Trauma 03/29/2024 04.004.3 46S / / [id number] Endcap Ti T40 Ex Gry 10mm - [id number] Implanted:Qty: 1 on 09/08/2015 by Monie Ortiz MD at [facility] DEVICE Left: TIBIA PROXIMAL DePuy Synthes - Trauma 04.004.0 10 / / Sut [place] Superquick - [id number] Implanted:Qty: 1 on 09/08/2015 by Monie Ortiz MD at [facility] DEVICE Left: TIBIA PROXIMAL DePuy Synthes - Trauma 01/27/2018 [id number] / / [id number] Scr Tyler 4.0x40 Lng-Thrd - [id number] Implanted:Qty: 2 on 09/08/2015 by Monie Ortiz MD at [facility] DEVICE Left: ANKLE J 207.740 / / Scr Lk Ti T25 4.0x30 - [id number] Implanted:Qty: 1 on 09/08/[address] [facility] DEVICE Left: TIBIA MIDSHAFT J&J DePuy Synthes - Trauma 04.005.4 20 / / Scr Lk Ti T25 4.0x38 - [id number] Implanted:Qty: 1 on 09/08/[address] [facility] DEVICE Left: TIBIA MIDSHAFT J&J DePuy Synthes - Trauma 04.005.4 28 / / Scr Lk Ti T25 4.0x42 - [id number] Implanted:Qty: 1 on 09/08/[address] [facility] DEVICE Left: TIBIA PROXIMAL J 04.005.4 32 / / Pin [place] Half Sfdr Ss 5x150 - [id number] Implanted:Qty: 2 on 09/10/2015 by Monie Ortiz MD at [facility] DEVICE Left: LEG [employer] 5018-5-1 50 / / Simone Carbon Conn 85i802 - [id number] Implanted:Qty: 1 on 09/10/[address] [facility] DEVICE Left: LEG [place] [employer] 4922-8-4 50 / / Pin [place] Half Sfdr Ss 5x180 - [id number] Implanted:Qty: 2 on 09/10/2015 by Monie Ortiz MD at [facility] DEVICE Left: LEG [place] [facility] 5018-6-1 80 / / Tightrope Acl Rt W/Dbly Sut - [id number] Implanted:Qty: 1 on 11/14/2015 by Leo Lujan DO at [facility] DEVICE Left: KNEE [employer] 04/29/2020 AR-1588R T-J / / [id number] Tightrope Acl Abs - [id number] Implanted:Qty: 1 on 11/14/2015 by Leo Lujan DO at [facility] DEVICE Left: KNEE [employer] 07/27/2020 AR-1588T N / / [id number] Tightrope Acl Pcl - [id number] Implanted:Qty: 1 on 11/14/2015 by Leo Lujan DO at [facility] DEVICE Left: KNEE [employer] 02/27/2020 AR-1588T P / / [id number] Scr Biocompos Interfr 6.0x23 - [id number] Implanted:Qty: 1 on 11/14/2015 by Leo Lujan DO at [facility] DEVICE Left: KNEE [employer] 05/27/2017 AR-1360C / / [id number] Scr Biotendesis Swivelock - [id number] Implanted:Qty: 1 on 11/14/2015 by Leo Lujan DO at [facility] DEVICE Left: KNEE [employer] 12/27/2016 AR-1662B C / / [id number] Tightrope Acl Rt W/Dbly Sut - [id number] Implanted:Qty: 1 on 11/14/2015 by Leo Lujan DO at [facility] DEVICE Left: KNEE [employer] 05/27/2020 AR-1588R T-J / / [id number] Tightrope Acl 8x12 - [id number] Implanted:Qty: 1 on 11/14/2015 by Leo Lujan DO at [facility] DEVICE Left: KNEE [employer] 06/27/2020 AR-1588T B / / [id number] Description:BUTTON Scr Rnd Delta Biocompo 11.0x28 - [id number] Implanted:Qty: 1 on 11/14/2015 by Leo Lujan DO at [facility] DEVICE Left: KNEE [employer] Inc 12/27/2016 AR-5028C -11 / / [id number] [place] Bio Swivel Lk 4.75x19.1 - [id number] Implanted:Qty: 1 on 11/14/2015 by Leo Lujan DO at [facility] DEVICE Left: KNEE [employer] 06/27/2017 AR-2324B CCT / / [id number] Scr Rnd Delta Biocompo 8.0x28 - [id number] Implanted:Qty: 1 on 11/14/2015 by Leo Lujan DO at [facility] DEVICE Left: KNEE [employer] Inc 06/27/2017 AR-5028C -08 / / [id number] Tyler Button Passport 8x60 - [id number] Implanted:Qty: 1 on 11/14/[address] [facility] DEVICE Ar[employer] Inc 04/29/2020 AR-6592 - 08-60 / / [id number] Advance Directives * Full Code (Latest Code [...] 3:19 PM 09/08/2015 10:55 PM Care Teams Box Order Person Relationship Specialty Start Date End Date Binu Torre MD [facility] [address] [place] [address] PCP - General Family Practice 11/07/16
--- OUTSIDE RECORDS SUMMARY | 2023-07-23 16:45 | XMS_ITS | Encounter Summary ---
Author Name Unknown Organization [facility] Address [address] [place] [address] Care Team Providers Care Supervisor Lump Room Name Role Phone Binu Torre MD Primary Care Provider [phone] Encounter Details Date Type Department Care Team [...] filedocumented in this encounter Care Teams Supervisor Lump Room Relationship Specialty Start Date End Date Binu Torre MD [facility] [address] [place] [address] PCP - General Family Practice 11/07/16 documented as of this encounter
--- OUTSIDE RECORDS SUMMARY | 2023-07-23 16:45 | XMS_ITS | Encounter Summary ---
Author Name Unknown Organization [facility] Address [address] [place] [address] Care Team Providers Care Epic Director Name Role Phone Binu Torre MD Primary Care Provider [phone] Encounter Details Date Type Department Care Team [...] on filedocumented in this encounter Care Teams Epic Director Relationship Specialty Start Date End Date Binu Torre MD [facility] [address] [place] [address] PCP - General Family Practice 11/07/16 documented as of this encounter
--- OUTSIDE RECORDS SUMMARY | 2023-07-23 16:45 | XMS_ITS | Encounter Summary ---
Author Name Unknown Organization [facility] Address [address] [place] [address] Care Team Providers Care Corporate Training Manager Name Role Phone Binu Torre MD Primary Care Provider [phone] Encounter Details Date Type Department Care Team (Late st Contact Info) Description 05/23/2016 Correspondence [facility] [place] [address] Leo Lujan, DO [address] [place] [address] ARTHROSCOPY Social History Tobacco Use Types Packs/Day [...] on filedocumented in this encounter Care Teams Corporate Training Manager Relationship Specialty Start Date End Date Binu Torre MD [facility] [address] [place] [address] PCP - General Family Practice 11/07/16 documented as of this encounter
--- OUTSIDE RECORDS SUMMARY | 2023-07-23 16:45 | XMS_ITS | Encounter Summary ---
Author Name Unknown Organization [facility] Address [address] [place] [address] Care Team Providers Care Special Needs Caregiver Name Role Phone Binu Torre MD Primary Care Provider [phone] Encounter Details Date Type Department Care Team (Late st Contact Info) Description 10/16/[address] [facility] Orthopedic [place] [address] [place] [address] Leo Lujan, DO [address] [place] [address] DISABILITY LETTER Social History Tobacco Use Types [...] on filedocumented in this encounter Care Teams Special Needs Caregiver Relationship Specialty Start Date End Date Binu Torre MD [facility] [address] [place] [address] PCP - General Family Practice 11/07/16 documented as of this encounter
--- OUTSIDE RECORDS SUMMARY | 2023-07-23 16:45 | XMS_ITS | Encounter Summary ---
Author Name Unknown Organization [facility] Address [address] [place] [address] Care Team Providers Care Hunter Name Role Phone Binu Torre MD Primary Care Provider [phone] Encounter Details Date Type Department Care Team ([facility] st Contact Info) Description 11/07/2016 Correspondence [facility] [address] [place] [address] Monie Ortiz MD [address] [place] [address] [phone] LEFT ANKLE ARTHROSCOPY Social History Tobacco Use [...] on filedocumented in this encounter Care Teams Hunter Relationship Specialty Start Date End Date Binu Torre MD [facility] [address] [place] [address] PCP - General Family Practice 11/07/16 documented as of this encounter
--- OUTSIDE RECORDS SUMMARY | 2023-07-23 16:45 | XMS_ITS | Clinical Summary ---
Author Name Unknown Organization [employer] [facility] Address [place], [place] [address] Care Team Providers Care Contracting Officer Name Role Phone Leo Lujan DO Primary Care Provider Allergies No known active allergies Medications Medication Sig Dispensed Refills Start Date End Date Status acetaminophen (TYLENOL EXTRA STRGTH) 500 mg tablet Take 1,000 mg by mouth. 10/10/2015 Active Active Problems Problem Noted Date Diagnosed Date Left knee pain 12/29/2016 s/p left knee open patellar tendon and extensor mechanism repair DOS: 09/08/2015 [facility] 12/29/2016 s/p placement of left knee c losed reduction and placement of left knee spanning external fixator DOS: 09/09/2016 [facility] 12/29/2016 s/p removal of spanning exte rnal fixator of the left knee DOS: 10/10/2015 [facility] 12/29/2016 s/p left knee PCL reconstruc tion with allograft, ACL reconstruction with hamstring allograft, posterior lateral corner reconsruction, peroneal nerve neurolysis, chondroplasty DOS: 11/14/2015 12/29/2016 s/p left knee partial latera l menisectomy DOS: 05/23/2016 [facility] 12/29/2016 Instability of left knee joint 12/29/2016 [...] age to complete this topic Care Teams Contracting Officer Relationship Specialty Start Date End Date Leo Lujan DO PCP - General Surgery - Orthopedics 12/16/16
--- OUTSIDE RECORDS SUMMARY | 2023-07-23 16:45 | XMS_ITS | Encounter Summary ---
Author Name Unknown Organization [facility] Address [address] [place] [address] Care Team Providers Care Grounds Crew Supervisor Name Role Phone Binu Torre MD Primary Care Provider Encounter Details Date Type Department Care Team (Late st Contact Info) Description 10/16/2016 Correspondence Orthopedics at [facility] Orthopedic [facility] [address] [place] [address] Leo Lujan, DO [address] [place] [address] STATEMENT OF SICKNESS Social History Tobacco Use [...] on filedocumented in this encounter Care Teams Grounds Crew Supervisor Relationship Specialty Start Date End Date Binu Torre MD [facility] [address] [place] [address] PCP - General Family Practice 11/07/16 documented as of this encounter
--- OUTSIDE RECORDS SUMMARY | 2023-07-23 16:45 | XMS_ITS | Encounter Summary ---
Author Name Unknown Organization [facility] Address [address] [place] [address] Care Team Providers Care Catechist Name Role Phone Binu Torre MD Primary Care Provider [phone] Encounter Details Date Type Department Care Team (Late st Contact Info) Description 07/02/2016 [facility] 435 [facility] [place] [address] Leo Lujan, DO [address] [place] [address] CONFIRMATION OF ORDER Social History Tobacco Use [...] on filedocumented in this encounter Care Teams Catechist Relationship Specialty Start Date End Date Binu Torre MD [facility] [address] [place] [address] PCP - General Family Practice 11/07/16 documented as of this encounter
--- OUTSIDE RECORDS SUMMARY | 2023-07-23 16:46 | XMS_ITS | Encounter Summary ---
Author Name Unknown Organization [facility] Address [address] [place] [address] Care Team Providers Care Billing Associate Name Role Phone Binu Torre MD Primary Care Provider [phone] Encounter Details Date Type Department Care Team (Latest Contact Info) Description 05/06/2016 Consent for Procedure/Treatme nt [facility] [address] [facility] [address] [place] [address] Monie Ortiz MD [address] [place] [address] [id number] RH INFORMED CONSENT Social History Tobacco Use [...] on filedocumented in this encounter Care Teams Billing Associate Relationship Specialty Start Date End Date Binu Torre MD [facility] [address] [place] [address] PCP - General Family Practice 11/07/16 documented as of this encounter
--- OUTSIDE RECORDS SUMMARY | 2023-07-23 16:46 | XMS_ITS | Encounter Summary ---
Author Name Unknown Organization [facility] Address [address] [place] [address] Care Team Providers Care Storehouse Clerk Name Role Phone Binu Torre MD Primary Care Provider [phone] Encounter Details Date Type Department Care Team [...] on filedocumented in this encounter Care Teams Storehouse Clerk Relationship Specialty Start Date End Date Binu Torre MD [facility] [address] [place] [address] PCP - General Family Practice 11/07/16 documented as of this encounter
--- OUTSIDE RECORDS SUMMARY | 2023-07-23 16:46 | XMS_ITS | Encounter Summary ---
Author Name Unknown Organization [facility] Address [address] [place] [address] Care Team Providers Care Lasting Room Supervisor Name Role Phone Binu Torre MD Primary Care Provider [phone] Encounter Details Date Type Department Care Team (Late st Contact Info) Description 10/03/2015 Correspondence [facility] 435 [facility] [place] [address] Leo Lujan, DO [address] [place] [address] CONFIRMATION OF ORDER Social History Tobacco Use [...] on filedocumented in this encounter Care Teams Lasting Room Supervisor Relationship Specialty Start Date End Date Binu Torre MD [facility] [address] [place] [address] PCP - General Family Practice 11/07/16 documented as of this encounter
--- OUTSIDE RECORDS SUMMARY | 2023-07-23 16:46 | XMS_ITS | Encounter Summary ---
Author Name Unknown Organization [facility] Address [address] [place] [address] Care Team Providers Care Flower Stripper Name Role Phone Binu Torre MD Primary Care Provider [phone] Encounter Details Date Type Department Care Team [...] on filedocumented in this encounter Care Teams Flower Stripper Relationship Specialty Start Date End Date Binu Torre MD [facility] [address] [place] [address] PCP - General Family Practice 11/07/16 documented as of this encounter
--- OUTSIDE RECORDS SUMMARY | 2023-07-23 16:46 | XMS_ITS | Encounter Summary ---
Author Name Unknown Organization [facility] Address [address] [place] [address] Care Team Providers Care Nodulizer Name Role Phone Binu Torre MD Primary Care Provider [phone] Encounter Details Date Type Department Care Team [...] on filedocumented in this encounter Care Teams Nodulizer Relationship Specialty Start Date End Date Binu Torre MD [facility] [address] [place] [address] PCP - General Family Practice 11/07/16 documented as of this encounter
--- OUTSIDE RECORDS SUMMARY | 2023-07-23 16:46 | XMS_ITS | Encounter Summary ---
Author Name Unknown Organization [facility] Address [address] [place] [address] Care Team Providers Care Agent Ticketing Gate Name Role Phone Binu Torre MD Primary Care Provider [phone] Encounter Details Date Type Department Care Team (Late st Contact Info) Description 11/01/2015 Correspondence External to External, [place] [address] PRIOR AUTHORIZATION Social History Tobacco Use Types [...] on filedocumented in this encounter Care Teams Agent Ticketing Gate Relationship Specialty Start Date End Date Binu Torre MD [facility] [address] [place] [address] PCP - General Family Practice 11/07/16 documented as of this encounter
--- OUTSIDE RECORDS SUMMARY | 2023-07-23 16:46 | XMS_ITS | Encounter Summary ---
Author Name Unknown Organization [facility] Address [address] [place] [address] Care Team Providers Care Cash Register Mechanic Name Role Phone Binu Torre MD Primary Care Provider [phone] Encounter Details Date Type Department Care Team (Late st Contact Info) Description 09/08/2015 Correspondence [facility] [place] [facility] Radiology [address] [place] [address] Radiology, Provider MRI SAFETY SHEET AND COMPATIBILITY [...] on filedocumented in this encounter Care Teams Cash Register Mechanic Relationship Specialty Start Date End Date Binu Torre MD [facility] [address] [place] [address] PCP - General Family Practice 11/07/16 documented as of this encounter
--- OUTSIDE RECORDS SUMMARY | 2023-07-23 16:46 | XMS_ITS | Encounter Summary ---
Author Name Unknown Organization [facility] Address [address] [place] [address] Care Team Providers Care Ballet Teacher Name Role Phone Binu Torre MD Primary Care Provider [phone] Encounter Details Date Type Department Care Team (Late st Contact Info) Description 05/10/2016 Correspondence External to External, [place] [address] HISTORY AND PHYSICAL Social History Tobacco Use [...] on filedocumented in this encounter Care Teams Ballet Teacher Relationship Specialty Start Date End Date Binu Torre MD [facility] [address] [place] [address] PCP - General Family Practice 11/07/16 documented as of this encounter
--- OUTSIDE RECORDS SUMMARY | 2023-07-23 16:46 | XMS_ITS | Encounter Summary ---
Author Name Unknown Organization [facility] Address [address] [place] [address] Care Team Providers Care Editor Producer Name Role Phone Binu Torre MD Primary Care Provider [phone] Encounter Details Date Type Department Care Team (Late st Contact Info) Description 11/27/2015 Correspondence [facility] 435 [facility] [place] [address] Leo Lujan, DO [address] [place] [address] MEDICAL STATUS Social History Tobacco Use Types [...] on filedocumented in this encounter Care Teams Editor Producer Relationship Specialty Start Date End Date Binu Torre MD [facility] [address] [place] [address] PCP - General Family Practice 11/07/16 documented as of this encounter
--- OUTSIDE RECORDS SUMMARY | 2023-07-23 16:46 | XMS_ITS | Encounter Summary ---
Author Name Unknown Organization [facility] Address [address] [place] [address] Care Team Providers Care Chief Technologist Name Role Phone Binu Torre MD Primary Care Provider [phone] Encounter Details Date Type Department Care Team (Late st Contact Info) Description 04/02/2016 Correspondence [facility] [address] [place] [address] Radiology, Provider MRI SAFETY SHEET AND COMPATIBILITY [...] on filedocumented in this encounter Care Teams Chief Technologist Relationship Specialty Start Date End Date Binu Torre MD [facility] [address] [place] [address] PCP - General Family Practice 11/07/16 documented as of this encounter
--- OUTSIDE RECORDS SUMMARY | 2023-07-23 16:46 | XMS_ITS | Encounter Summary ---
Author Name Unknown Organization [facility] Address [address] [place] [address] Care Team Providers Care Circuit Judge Name Role Phone Binu Torre MD Primary Care Provider [phone] Encounter Details Date Type Department Care Team [...] on filedocumented in this encounter Care Teams Circuit Judge Relationship Specialty Start Date End Date Binu Torre MD [facility] [address] [place] [address] PCP - General Family Practice 11/07/16 documented as of this encounter
--- OUTSIDE RECORDS SUMMARY | 2023-07-23 16:46 | XMS_ITS | Encounter Summary ---
Author Name Unknown Organization [facility] Address [address] [place] [address] Care Team Providers Care Textile Pin Worker Name Role Phone Binu Torre MD Primary Care Provider [phone] Encounter Details Date Type Department Care Team [...] on filedocumented in this encounter Care Teams Textile Pin Worker Relationship Specialty Start Date End Date Binu Torre MD [facility] [address] [place] [address] PCP - General Family Practice 11/07/16 documented as of this encounter
--- OUTSIDE RECORDS SUMMARY | 2023-07-23 16:46 | XMS_ITS | Encounter Summary ---
Author Name Unknown Organization [facility] Address [address] [place] [address] Care Team Providers Care Manager Sales Training Name Role Phone Binu Torre MD Primary Care Provider [phone] Encounter Details Date Type Department Care Team (Late st Contact Info) Description 11/14/2015 Correspondence [facility] 435 [facility] [place] [address] Leo Lujan, DO [address] [place] [address] LEFT KNEE ARTHROSCOPY Social History Tobacco Use [...] on filedocumented in this encounter Care Teams Manager Sales Training Relationship Specialty Start Date End Date Binu Torre MD COUNTS INCLUDE 234 BED[facility] AT [facility] [address] [place] [address] PCP - General Family Practice 11/07/16 documented as of this encounter
--- OUTSIDE RECORDS SUMMARY | 2023-07-23 16:46 | XMS_ITS | Encounter Summary ---
Author Name Unknown Organization [facility] Address [address] [place] [address] Care Team Providers Care Script Reader Name Role Phone Binu Torre MD Primary Care Provider [phone] Encounter Details Date Type Department Care Team [...] on filedocumented in this encounter Care Teams Script Reader Relationship Specialty Start Date End Date Binu Torre MD [facility] [address] [place] [address] PCP - General Family Practice 11/07/16 documented as of this encounter
--- OUTSIDE RECORDS SUMMARY | 2023-07-23 16:46 | XMS_ITS | Encounter Summary ---
Author Name Unknown Organization [facility] Address [address] [place] [address] Care Team Providers Care Vice President Of Consulting Services Name Role Phone Binu Torre MD Primary Care Provider [phone] Encounter Details Date Type Department Care Team [...] on filedocumented in this encounter Care Teams Vice President Of Consulting Services Relationship Specialty Start Date End Date Binu Torre MD [facility] [address] [place] [address] PCP - General Family Practice 11/07/16 documented as of this encounter
--- OUTSIDE RECORDS SUMMARY | 2023-07-23 16:46 | XMS_ITS | Encounter Summary ---
Author Name Unknown Organization [facility] Address [address] [place] [address] Care Team Providers Care Primary Special Educator Name Role Phone Binu Torre MD Primary Care Provider [phone] Encounter Details Date Type Department Care Team (Late st Contact Info) Description 09/08/2015 Scanned History External to External, [place] [address] EMS RUN SHEET Social History Tobacco Use [...] on filedocumented in this encounter Care Teams Primary Special Educator Relationship Specialty Start Date End Date Binu Torre MD [facility] [address] [place] [address] PCP - General Family Practice 11/07/16 documented as of this encounter
--- NOTE | 2023-07-23 17:00 | US_ITS ---
Patient: BRENNAN LOPES Facility:?[facility] Patient ID:?[id number] Site Patient ID:?[id number]. Site :?[id number] Study:?US-Abdomen/Pelvis AAA SCREENING-07/23/2023 5:21:35 PM Ordering Physician:?CHERIE HERNANDEZ M.D. Final Report: INDICATION Abdominal aortic aneurysm screening. COMPARISON None available. TECHNIQUE Abdominal aortic ultrasound examination with grayscale and color Doppler imaging. FINDINGS Proximal AO: 2.9 cm AP, 3.3 cm Width Mid AO: 2.0 cm AP, 2.0 cm Width Distal AO: 1.8 cm AP, 2.4 cm Width Right STU: 1.5 cm AP, 1.5 cm Width Left STU: 1.6 cm AP, 1.8 cm Width IMPRESSION No sonographic evidence for abdominal aortic aneurysm. Vishal Mcleod M.D. Interventional Radiology/Diagnostic Radiology (IR/DR) [email or web address] Denisa DW/Dictated by: Vishal Mcleod MD @ 07/25/2023 8:15:00 AM Signed by:?Vishal Mcleod MD @07/25/2023 8:30:27 AM (Electronic Signature)
== END 2023-07-23 16:43 | disposition home or self-care (01) ==
LOC: US 16:44
PROVIDERS: PCP Family Medicine; Visit Provider Emergency Medicine
DX: Z13.6 Encounter for screening for cardiovascular disorders (principal); Z82.49 Family history of ischemic heart disease and other diseases of the circulatory system
CPT/HCPCS: 76706

== ENCOUNTER 2023-07-29 14:57 | Outpatient (CLI) | payer BC, SELFPAY ==
--- OUTSIDE RECORDS SUMMARY | 2023-07-29 15:00 | XMS_ITS | Clinical Summary ---
Author Name Unknown Organization [email or web address] [facility] Address [place], [place] [address] Care Team Providers Care Plant Engineer Name Role Phone Leo Lujan DO Primary Care Provider Allergies No known active allergies Medications Medication Sig Dispensed Refills Start Date End Date Status acetaminophen (TYLENOL EXTRA STRGTH) 500 mg tablet Take 1,000 mg by mouth. 10/10/2015 Active Active Problems Problem Noted Date Diagnosed Date Left knee pain 12/29/2016 s/p left knee open patellar tendon and extensor mechanism repair DOS: 09/08/2015 [facility] 12/29/2016 s/p placement of left knee c losed reduction and placement of left knee spanning external fixator DOS: 09/09/2016 [facility] 12/29/2016 s/p removal of spanning exte rnal fixator of the left knee DOS: 10/10/2015 [facility] 12/29/2016 s/p left knee PCL reconstruc tion with allograft, ACL reconstruction with hamstring allograft, posterior lateral corner reconsruction, peroneal nerve neurolysis, chondroplasty DOS: 11/14/2015 12/29/2016 s/p left knee partial latera l menisectomy DOS: 05/23/2016 [facility] 12/29/2016 Instability of left knee joint 12/29/2016 [...] age to complete this topic Care Teams Plant Engineer Relationship Specialty Start Date End Date Leo Lujan DO PCP - General Surgery - Orthopedics 12/16/16
--- OUTSIDE RECORDS SUMMARY | 2023-07-29 15:00 | XMS_ITS | Clinical Summary ---
Author Name Unknown Organization [facility] Address [address] [place] [address] Care Team Providers Care Clinical Courier Name Role Phone Binu Torre MD Primary Care Provider [phone] Source Comments You are receiving this document as you are listed as the primary care provider,follow-up provider, or the patient has been referred to you for consultation.This is in compliance with the Medicare and[facility] EHR Incentive Program,which states Providers who transition their patient to another setting of careor provider of care or refers their patient to another provider of care shouldprovide summary care record for each transition of care or referral. [facility] Allergies No known active allergies Medications Medication [...] this topic Medical Devices Implanted Type Area Web Content Editor Device Identifier Shelf Expiration Date Model / Serial / Lot Bone Tendon Achilles 19.5-38 - [id number] Implanted:Qty: 1 on 11/14/2015 by Leo Lujan DO at [facility] Left: KNEE MTF 03/30/2019 [id number] / [id number] / Semitendinosus Tendon Implanted:Qty: 1 on 11/14/2015 by Leo Lujan DO at [facility] Left: KNEE Musculoskeletal Transplant Fnd 09/26/2019 384019 / [id number] / Bone Tib Tendon Post - [id number] Implanted:Qty: 1 on 11/14/2015 at [facility] Left: KNEE Musculoskeletal Transplant Fnd 10/07/2018 [id number] / [id number] / NA Simone Rmr [address] 2.5x650 - [id number] Implanted:Qty: 1 on 09/08/2015 by Monie Ortiz MD at [facility] DEV[employer] Left: TIBIA MIDSHAFT J&J DePuy Synthes - Trauma 06/27/2024 351.709S / / [id number] Nail Tib Ti [address] 9.0x330 - [id number] Implanted:Qty: 1 on 09/08/2015 by Monie Ortiz MD at [facility] Left: TIBIA MIDSHAFT DePuy Synthes - Trauma 03/29/2024 04.004.3 46S / / [id number] Endcap Ti T40 Ex Gry 10mm - [id number] Implanted:Qty: 1 on 09/08/2015 by Monie Ortiz MD at [facility] DEV[employer] Left: TIBIA PROXIMAL DePuy Synthes - Trauma 04.004.0 10 / / Sut [place] Superquick - [id number] Implanted:Qty: 1 on 09/08/2015 by Monie Ortiz MD at [facility] Left: TIBIA PROXIMAL DePuy Synthes - Trauma 01/27/2018 [id number] / / [id number] Scr Tyler 4.0x40 Lng-Thrd - [id number] Implanted:Qty: 2 on 09/08/2015 by Monie Ortiz MD at [facility] DEV[employer] Left: ANKLE J 207.740 / / Scr Lk Ti T25 4.0x30 - [id number] Implanted:Qty: 1 on 09/08/2015 at [facility] Left: TIBIA MIDSHAFT J&J DePuy Synthes - Trauma 04.005.4 20 / / Scr Lk Ti T25 4.0x38 - [id number] Implanted:Qty: 1 on 09/08/2015 at [facility] Left: TIBIA MIDSHAFT J&J DePuy Synthes - Trauma 04.005.4 28 / / Scr Lk Ti T25 4.0x42 - [id number] Implanted:Qty: 1 on 09/08/2015 at [facility] Left: TIBIA PROXIMAL J 04.005.4 32 / / Pin [place] Half Sfdr Ss 5x150 - [id number] Implanted:Qty: 2 on 09/10/2015 by Monie Ortiz MD at [facility] DEV[facility] Left: LEG [facility] 5018-5-1 50 / / Simone Carbon Conn 16r681 - [id number] Implanted:Qty: 1 on 09/10/2015 at [facility] DEV[facility] Left: LEG [facility] 4922-8-4 50 / / Pin [place] Half Sfdr Ss 5x180 - [id number] Implanted:Qty: 2 on 09/10/2015 by Monie Ortiz MD at [facility] DEVICE Left: LEG [facility] 5018-6-1 80 / / Tightrope Acl Rt W/Dbly Sut - [id number] Implanted:Qty: 1 on 11/14/2015 by Leo Lujan DO at [facility] Left: KNEE [employer] 04/29/2020 AR-1588R T-J / / [id number] Tightrope Acl Abs - [id number] Implanted:Qty: 1 on 11/14/2015 by Leo Lujan DO at [facility] DEV[facility] Left: KNEE [employer] 07/27/2020 AR-1588T N / / [id number] Tightrope Acl Pcl - [id number] Implanted:Qty: 1 on 11/14/2015 by Leo Lujan DO at [facility] DEV[facility] Left: KNEE [employer] 02/27/2020 AR-1588T P / / [id number] Scr Biocompos Interfr 6.0x23 - [id number] Implanted:Qty: 1 on 11/14/2015 by Leo Lujan DO at [facility] Left: KNEE [employer] 05/27/2017 AR-1360C / / [id number] Scr Biotendesis Swivelock - [id number] Implanted:Qty: 1 on 11/14/2015 by Leo Lujan DO at [facility] Left: KNEE [employer] 12/27/2016 AR-1662B C / / [id number] Tightrope Acl Rt W/Dbly Sut - [id number] Implanted:Qty: 1 on 11/14/2015 by Leo Lujan DO at [facility] DEV[facility] Left: KNEE [employer] 05/27/2020 AR-1588R T-J / / [id number] Tightrope Acl 8x12 - [id number] Implanted:Qty: 1 on 11/14/2015 by Leo Lujan DO at [facility] DEVICE Left: KNEE [employer] 06/27/2020 AR-1588T B / / [id number] Description:BUTTON Scr Rnd Delta Biocompo 11.0x28 - [id number] Implanted:Qty: 1 on 11/14/2015 by Leo Lujan DO at [facility] DEV[facility] Left: KNEE [employer] 12/27/2016 AR-5028C -11 / / [id number] [place] Bio Swivel Lk 4.75x19.1 - [id number] Implanted:Qty: 1 on 11/14/2015 by Leo Lujan DO at [facility] DEVICE Left: KNEE [employer] 06/27/2017 AR-2324B CCT / / [id number] Scr Rnd Delta Biocompo 8.0x28 - [id number] Implanted:Qty: 1 on 11/14/2015 by Leo Lujan DO at [facility] DEV[facility] Left: KNEE [employer] 06/27/2017 AR-5028C -08 / / [id number] Tyler Button Passport 8x60 - [id number] Implanted:Qty: 1 on 11/14/2015 at [facility] DEVICE Ar[employer] Inc 04/29/2020 AR-6592 - 08-60 / / [id number] Advance Directives * Full Code (Latest Code [...] 3:19 PM 09/08/2015 10:55 PM Care Teams Clinical Courier Relationship Specialty Start Date End Date Binu Torre MD [facility] [address] [place] [address] PCP - General Family Practice 11/07/16
--- OUTSIDE RECORDS SUMMARY | 2023-07-29 15:00 | XMS_ITS | Encounter Summary ---
Author Name Unknown Organization [facility] Address [address] [place] [address] Care Team Providers Care Trencher Driver Name Role Phone Binu Torre MD Primary Care Provider [phone] Encounter Details Date Type Department Care Team ([facility] st Contact Info) Description 11/07/2016 [facility] [address] [place] [address] Monie Ortiz MD [address] [place] [address] [id number] LEFT ANKLE ARTHROSCOPY Social History Tobacco Use [...] on filedocumented in this encounter Care Teams Trencher Driver Relationship Specialty Start Date End Date Binu Torre MD [facility] [address] [place] [address] PCP - General Family Practice 11/07/16 documented as of this encounter
--- OUTSIDE RECORDS SUMMARY | 2023-07-29 15:00 | XMS_ITS | Encounter Summary ---
Author Name Unknown Organization [facility] Address [address] [place] [address] Care Team Providers Care Inoculator Name Role Phone Binu Torre MD Primary Care Provider [phone] Encounter Details Date Type Department Care Team (Late st Contact Info) Description 10/16/2016 Correspondence Orthopedics at [facility] Orthopedic [facility] [address] [place] [address] Leo Lujan, DO [address] [place] [address] STATEMENT OF SICKNESS Social History Tobacco Use [...] on filedocumented in this encounter Care Teams Inoculator Relationship Specialty Start Date End Date Binu Torre MD [facility] [address] [place] [address] PCP - General Family Practice 11/07/16 documented as of this encounter
--- OUTSIDE RECORDS SUMMARY | 2023-07-29 15:01 | XMS_ITS | Encounter Summary ---
Author Name Unknown Organization [facility] Address [address] [place] [address] Care Team Providers Care Dispatcher Service Chief Name Role Phone Binu Torre MD Primary Care Provider [phone] Encounter Details Date Type Department Care Team [...] on filedocumented in this encounter Care Teams Dispatcher Service Chief Relationship Specialty Start Date End Date Binu Torre MD [facility] [address] [place] [address] PCP - General Family Practice 11/07/16 documented as of this encounter
--- OUTSIDE RECORDS SUMMARY | 2023-07-29 15:01 | XMS_ITS | Encounter Summary ---
Author Name Unknown Organization [facility] Address [address] [place] [address] Care Team Providers Care Selling Underwriter Name Role Phone Binu Torre MD Primary Care Provider [phone] Encounter Details Date Type Department Care Team (Late st Contact Info) Description 11/14/2015 [facility] 435 [facility] [place] [address] Leo Lujan, DO [address] [place] [address] LEFT KNEE ARTHROSCOPY Social History Tobacco Use [...] on filedocumented in this encounter Care Teams Selling Underwriter Relationship Specialty Start Date End Date Binu Torre MD [facility] [address] [place] [address] PCP - General Family Practice 11/07/16 documented as of this encounter
--- OUTSIDE RECORDS SUMMARY | 2023-07-29 15:01 | XMS_ITS | Encounter Summary ---
Author Name Unknown Organization [facility] Address [address] [place] [address] Care Team Providers Care Manual Tester Name Role Phone Binu Torre MD Primary Care Provider [phone] Encounter Details Date Type Department Care Team (Late st Contact Info) Description 11/01/2015 Correspondence External to External, [place] [address] PRIOR AUTHORIZATION Social History Tobacco Use Types [...] on filedocumented in this encounter Care Teams Manual Tester Relationship Specialty Start Date End Date Binu Torre MD [facility] [address] [place] [address] PCP - General Family Practice 11/07/16 documented as of this encounter
--- OUTSIDE RECORDS SUMMARY | 2023-07-29 15:01 | XMS_ITS | Encounter Summary ---
Author Name Unknown Organization [facility] Address [address] [place] [address] Care Team Providers Care Manager Of School Name Role Phone Binu Torre MD Primary Care Provider [phone] Encounter Details Date Type Department Care Team (Late st Contact Info) Description 11/27/2015 [facility] [address] [place] [address] Leo Lujan, DO [address] [place] [address] MEDICAL STATUS Social History Tobacco Use Types [...] filedocumented in this encounter Care Teams Manager Of School Relationship Specialty Start Date End Date Binu Torre MD [facility] [address] [place] [address] PCP - General Family Practice 11/07/16 documented as of this encounter
--- OUTSIDE RECORDS SUMMARY | 2023-07-29 15:01 | XMS_ITS | Encounter Summary ---
Author Name Unknown Organization [facility] Address [address] [place] [address] Care Team Providers Care Baseball Glove Shaper Name Role Phone Binu Torre MD Primary Care Provider [phone] Encounter Details Date Type Department Care Team (Late st Contact Info) Description 09/08/2015 Correspondence [facility] Radiology [address] [place] [address] Radiology, Provider MRI SAFETY SHEET AND COMPATIBILITY [...] on filedocumented in this encounter Care Teams Baseball Glove Shaper Relationship Specialty Start Date End Date Binu Torre MD [facility] [address] [place] [address] PCP - General Family Practice 11/07/16 documented as of this encounter
--- OUTSIDE RECORDS SUMMARY | 2023-07-29 15:01 | XMS_ITS | Encounter Summary ---
Author Name Unknown Organization [facility] Address [address] [place] [address] Care Team Providers Care Trauma Counsellor Name Role Phone Binu Torre MD Primary Care Provider [phone] Encounter Details Date Type Department Care Team [...] on filedocumented in this encounter Care Teams Trauma Counsellor Relationship Specialty Start Date End Date Binu Torre MD [facility] [address] [place] [address] PCP - General Family Practice 11/07/16 documented as of this encounter
--- OUTSIDE RECORDS SUMMARY | 2023-07-29 15:01 | XMS_ITS | Encounter Summary ---
Author Name Unknown Organization [facility] Address [address] [place] [address] Care Team Providers Care Supervisor Post Wave Name Role Phone Binu Torre MD Primary Care Provider [phone] Encounter Details Date Type Department Care Team [...] filedocumented in this encounter Care Teams Supervisor Post Wave Relationship Specialty Start Date End Date Binu Torre MD [facility] [address] [place] [address] PCP - General Family Practice 11/07/16 documented as of this encounter
--- OUTSIDE RECORDS SUMMARY | 2023-07-29 15:01 | XMS_ITS | Encounter Summary ---
Author Name Unknown Organization [facility] Address [address] [place] [address] Care Team Providers Care Die Barber Name Role Phone Binu Torre MD Primary Care Provider [phone] Encounter Details Date Type Department Care Team (Late st Contact Info) Description 05/23/2016 [facility] 435 [facility] [place] [address] Leo Lujan, DO [address] [place] [address] ARTHROSCOPY Social History Tobacco Use Types Packs/Day [...] on filedocumented in this encounter Care Teams Die Barber Relationship Specialty Start Date End Date Binu Torre MD [facility] [address] [place] [address] PCP - General Family Practice 11/07/16 documented as of this encounter
--- OUTSIDE RECORDS SUMMARY | 2023-07-29 15:01 | XMS_ITS | Encounter Summary ---
Author Name Unknown Organization [facility] Address [address] [place] [address] Care Team Providers Care Hat Measurer Name Role Phone Binu Torre MD Primary Care Provider [phone] Encounter Details Date Type Department Care Team [...] on filedocumented in this encounter Care Teams Hat Measurer Relationship Specialty Start Date End Date Binu Torre MD [facility] [address] [place] [address] PCP - General Family Practice 11/07/16 documented as of this encounter
--- OUTSIDE RECORDS SUMMARY | 2023-07-29 15:01 | XMS_ITS | Encounter Summary ---
Author Name Unknown Organization [facility] Address [address] [place] [address] Care Team Providers Care Detonator Maker Name Role Phone Binu Torre MD Primary Care Provider [phone] Encounter Details Date Type Department Care Team [...] on filedocumented in this encounter Care Teams Detonator Maker Relationship Specialty Start Date End Date Binu Torre MD [facility] [address] [place] [address] PCP - General Family Practice 11/07/16 documented as of this encounter
--- OUTSIDE RECORDS SUMMARY | 2023-07-29 15:01 | XMS_ITS | Encounter Summary ---
Author Name Unknown Organization [facility] Address [address] [place] [address] Care Team Providers Care Vascular Surgeon Name Role Phone Binu Torre MD Primary Care Provider [phone] Encounter Details Date Type Department Care Team [...] on filedocumented in this encounter Care Teams Vascular Surgeon Relationship Specialty Start Date End Date Binu Torre MD [facility] [address] [place] [address] PCP - General Family Practice 11/07/16 documented as of this encounter
--- OUTSIDE RECORDS SUMMARY | 2023-07-29 15:01 | XMS_ITS | Encounter Summary ---
Author Name Unknown Organization [facility] Address [address] [place] [address] Care Team Providers Care Senior Principal Name Role Phone Binu Torre MD Primary Care Provider [phone] Encounter Details Date Type Department Care Team (Late st Contact Info) Description 04/02/2016 Correspondence [facility] [address] [place] [address] Radiology, Provider MRI SAFETY SHEET AND COMPATIBILITY [...] on filedocumented in this encounter Care Teams Senior Principal Relationship Specialty Start Date End Date Binu Torre MD [facility] [address] [place] [address] PCP - General Family Practice 11/07/16 documented as of this encounter
--- OUTSIDE RECORDS SUMMARY | 2023-07-29 15:01 | XMS_ITS | Encounter Summary ---
Author Name Unknown Organization [facility] Address [address] [place] [address] Care Team Providers Care Coremaker Experimental Name Role Phone Binu Torre MD Primary Care Provider [phone] Encounter Details Date Type Department Care Team (Late st Contact Info) Description 07/02/2016 [facility] 435 [facility] [address] Loe Lujan, DO [address] [place] [address] CONFIRMATION OF ORDER Social History Tobacco Use [...] on filedocumented in this encounter Care Teams Coremaker Experimental Relationship Specialty Start Date End Date Binu Torre MD [facility] [address] [place] [address] PCP - General Family Practice 11/07/16 documented as of this encounter
--- OUTSIDE RECORDS SUMMARY | 2023-07-29 15:01 | XMS_ITS | Encounter Summary ---
Author Name Unknown Organization [facility] Address [address] [place] [address] Care Team Providers Care Billboard Erector Name Role Phone Binu Torre MD Primary Care Provider [phone] Encounter Details Date Type Department Care Team [...] on filedocumented in this encounter Care Teams Billboard Erector Relationship Specialty Start Date End Date Binu Torre MD [facility] [address] [place] [address] PCP - General Family Practice 11/07/16 documented as of this encounter
--- OUTSIDE RECORDS SUMMARY | 2023-07-29 15:01 | XMS_ITS | Encounter Summary ---
Author Name Unknown Organization [facility] Address [address] [place] [address] Care Team Providers Care Foot Worker Name Role Phone Binu Torre MD Primary Care Provider [phone] Encounter Details Date Type Department Care Team (Late st Contact Info) Description 10/03/2015 [facility] 435 [facility] [place] [address] Leo Lujan, DO [address] [place] [address] CONFIRMATION OF ORDER Social History Tobacco Use [...] on filedocumented in this encounter Care Teams Foot Worker Relationship Specialty Start Date End Date Binu Torre MD [facility] [address] [place] [address] PCP - General Family Practice 11/07/16 documented as of this encounter
--- OUTSIDE RECORDS SUMMARY | 2023-07-29 15:01 | XMS_ITS | Encounter Summary ---
Author Name Unknown Organization [facility] Address [address] [place] [address] Care Team Providers Care Wood Piler Name Role Phone Binu Torre MD Primary Care Provider [phone] Encounter Details Date Type Department Care Team (Late st Contact Info) Description 10/16/2016 Correspondence Orthopedics at [facility] Orthopedic [place] [address] [place] [address] Leo Lujan, DO [address] [place] [address] DISABILITY LETTER Social History Tobacco Use Types [...] on filedocumented in this encounter Care Teams Wood Piler Relationship Specialty Start Date End Date Binu Torre MD [facility] [address] [place] [address] PCP - General Family Practice 11/07/16 documented as of this encounter
--- OUTSIDE RECORDS SUMMARY | 2023-07-29 15:01 | XMS_ITS | Encounter Summary ---
Author Name Unknown Organization [facility] Address [address] [place] [address] Care Team Providers Care Drum Drier Name Role Phone Binu Torre MD Primary Care Provider [phone] Encounter Details Date Type Department Care Team [...] on filedocumented in this encounter Care Teams Drum Drier Relationship Specialty Start Date End Date Binu Torre MD [facility] [address] [place] [address] PCP - General Family Practice 11/07/16 documented as of this encounter
--- OUTSIDE RECORDS SUMMARY | 2023-07-29 15:01 | XMS_ITS | Encounter Summary ---
Author Name Unknown Organization [facility] Address [address] [place] [address] Care Team Providers Care Electrolytic Etcher Name Role Phone Binu Torre MD Primary Care Provider Encounter Details Date Type Department Care Team (Latest Contact Info) Description 05/06/2016 Consent for Procedure/Treatme nt [facility] [address] [place] [address] Monie Ortiz MD [address] [place] [address] [id number] RH INFORMED CONSENT Social History Tobacco Use [...] on filedocumented in this encounter Care Teams Electrolytic Etcher Relationship Specialty Start Date End Date Binu Torre MD [facility] [address] [place] [address] PCP - General Family Practice 11/07/16 documented as of this encounter
--- OUTSIDE RECORDS SUMMARY | 2023-07-29 15:01 | XMS_ITS | Encounter Summary ---
Author Name Unknown Organization [facility] Address [address] [place] [address] Care Team Providers Care Hazardous Materials Waste Technician Name Role Phone Binu Torre MD Primary Care Provider [phone] Encounter Details Date Type Department Care Team (Late st Contact Info) Description 09/08/2015 Scanned History External to External, [place] [address] EMS RUN SHEET Social History Tobacco Use [...] on filedocumented in this encounter Care Teams Hazardous Materials Waste Technician Relationship Specialty Start Date End Date Binu Torre MD [facility] [address] [place] [address] PCP - General Family Practice 11/07/16 documented as of this encounter
--- OUTSIDE RECORDS SUMMARY | 2023-07-29 15:01 | XMS_ITS | Encounter Summary ---
Author Name Unknown Organization [facility] Address [address] [place] [address] Care Team Providers Care Corrugator Operator Helper Name Role Phone Binu Torre MD Primary Care Provider [phone] Encounter Details Date Type Department Care Team (Late st Contact Info) Description 05/10/2016 Correspondence External to External, [place] [address] HISTORY AND PHYSICAL Social History Tobacco Use [...] on filedocumented in this encounter Care Teams Corrugator Operator Helper Relationship Specialty Start Date End Date Binu Torre MD [facility] [address] [place] [address] PCP - General Family Practice 11/07/16 documented as of this encounter
[2023-07-29] MEDS: PERFLUTREN LIPID MICROSPHERES 2 ML VIAL IV (15:35)
--- NOTE | 2023-07-29 15:44 | PC.NURSE ---
20G IV placed in right hand. Definity given per photo equipment technician, then flushed. IV removed intact.
== END 2023-07-29 14:58 | disposition home or self-care (01) ==
LOC: RAD 14:59
PROVIDERS: PCP Family Medicine; Visit Provider Emergency Medicine
DX: Z82.49 Family history of ischemic heart disease and other diseases of the circulatory system (principal); I35.1 Nonrheumatic aortic (valve) insufficiency; I34.0 Nonrheumatic mitral (valve) insufficiency
CPT/HCPCS: 93306

== ENCOUNTER 2023-11-14 14:50 | Inpatient (IN) | payer BC, SELFPAY ==
[2023-11-14] VITALS (41 sets, daily range): BP systolic 118–155; BP diastolic 68–102; PULSE 76–98; RESP 18–24; TEMP 37.6–39.1; O2SAT 89–96; BMI 42.4; BMI 41.8
--- NOTE | 2023-11-14 15:14 | CRLHL7_ITS ---
For Patients: As a result of the Century Cures Act, medical imaging exams and procedure reports are released immediately into your electronic medical record. You may view this report before your referring provider. If you have questions, please contact your health care provider. INDICATION: Fever. Right lower quadrant guarding. TECHNIQUE: CT abdomen and pelvis acquired with 147 cc of Isovue 370 IV contrast. COMPARISON: None. FINDINGS: Lower chest: Unremarkable. Liver: Low densities measuring up to 2.3 cm in the left lobe most consistent with incidental cysts. The liver is otherwise unremarkable. Spleen: Unremarkable. Pancreas: Unremarkable. Gallbladder and bile ducts: No calcified stones or biliary ductal dilatation. Kidneys: Unremarkable. Adrenal glands: Unremarkable. GI tract: Colonic diverticulosis with circumferential thickening and apparent narrowing of the sigmoid colon (axial image 126 of series 2). No adjacent pericolonic stranding. The appendix measures up to 10 mm and there is subtle periappendiceal fat heterogeneity. No bowel obstruction. No free air, free fluid or suspicious fluid collection. Fat containing umbilical hernia. Lymph nodes: No pathologic lymphadenopathy. Vascular structures: Mild atherosclerotic disease. No abdominal aortic aneurysm. Pelvic Organs: Prostate and bladder as imaged are unremarkable. Bones: No acute or suspicious osseous abnormality. Degenerative changes of the spine and pelvis. IMPRESSION: 1. Findings worrisome for early acute appendicitis. Surgical consultation regarding further management recommended. At a minimum, continued close clinical follow-up is recommended. 2. Circumferential thickening and apparent narrowing of the sigmoid colon, as indexed above. No adjacent inflammatory change to suggest diverticulitis. Underlying malignancy should be excluded. Endoscopy correlation is recommended if not recently performed. Discussed with Dr. Negron by telephone at 4:25 p.m. on 11/14/2023. Dictated by Eleno Marrero MD @ 11/14/2023 4:26:42 PM Please note that all CT scans at this facility use dose modulation, iterative reconstruction, and/or weight-based dosing when appropriate to reduce radiation dose to as low as reasonably achievable. Dictated by: Eleno Marrero MD @ 11/14/2023 16:29:06 (Electronically Signed)
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
[2023-11-14 15:26] LABS: Lactate Sepsis w/Reflex* 2.1 mmol/L (0.5-1.9)
[2023-11-14 15:28] LABS: Basophils Percent Auto 0.2 % (0.0-3.0); Eosinophils Percent Auto 0.2 % (0.0-7.0); Hematocrit 44.7 % (37.0-53.0); Hemoglobin* 15.1 gm/dL (13.5-17.5); Immature Granulocytes Pct Auto 1.5 %; Lymphocytes Percent Auto 8.7 % (20-44); Mean Corpuscular HGB Conc 34 gm/dL (32-36); Mean Corpuscular Hemoglobin 29 pg (26-34); Mean Corpuscular Volume 85 fL (80-100); Monocytes Percent Auto 9.8 % (0.0-11.0); Neutrophils Percent Auto 79.6 % (42.0-72.0); Platelet Count* 229 K/uL (140-440); RDW Coefficient of Variation % 13.2 % (11.5-15.5); Red Blood Count 5.27 m/uL (4.30-5.90)
[2023-11-14 15:30] LABS: Slide Review Reflex No
[2023-11-14] MEDS: 0.9 % SODIUM CHLORIDE 1000 ml 1,000 ML IV (15:35)
[2023-11-14] MEDS: ONDANSETRON 2 MG/ML inj 4 MG IVP (15:36)
[2023-11-14] MEDS: HYDROmorphone 0.5 mg/0.5 ml inj IVP ×5 (15:36→23:24)
[2023-11-14 15:47] LABS: Albumin* 4.4 g/dL (3.3-5.0); Chloride* 104 mmol/L (96-114); Sodium* 137 mmol/L (135-149)
[2023-11-14 15:50] LABS: Alanine Aminotransferase* 49 U/L (4-50); Alkaline Phosphatase* 91 U/L (40-150); Anion Gap 10 mEq/L (7-15); Aspartate Amino Transferase* 26 U/L (12-35); Bilirubin Total* 0.8 mg/dL (0.1-1.5); Blood Urea Nitrogen* 11 mg/dL (5-24); Carbon Dioxide* 23 mmol/L (20-32); Creatinine* 1.1 mg/dL (0.5-1.5); Est. Creatinine Clearance* 87.47; Estimated Glomerular Filt Rate 83 ml/min; Glucose* 137 mg/dL (60-115); Lipase* 40 U/L (23-300); Total Protein* 7.3 g/dL (6.0-8.3)
--- OUTSIDE RECORDS SUMMARY | 2023-11-14 15:50 | XMS_ITS | Encounter Summary ---
Author Organization [facility] Address [address] [place] [address] Care Team Providers Care Application Packaging Consultant Name Role Phone Binu Torre MD Primary Care Provider [phone] Encounter Details Date Type Department Care Team [...] on filedocumented in this encounter Care Teams Application Packaging Consultant Relationship Specialty Start Date End Date Binu Torre MD [facility] [address] [place] [address] PCP - General Family Practice 11/07/16 documented as of this encounter
--- OUTSIDE RECORDS SUMMARY | 2023-11-14 15:50 | XMS_ITS | Encounter Summary ---
Author Organization [facility] Address [address] [place] [address] Care Team Providers Care Imaging Specialist Name Role Phone Binu Torre MD Primary Care Provider [phone] Encounter Details Date Type Department Care Team (Late st Contact Info) Description 11/27/2015 [facility] [address] [facility] [address] Leo Lujan, DO [address] [place] [address] MEDICAL STATUS Social History Tobacco Use Types [...] on filedocumented in this encounter Care Teams Imaging Specialist Relationship Specialty Start Date End Date Binu Torre MD [facility] [address] [place] [address] PCP - General Family Practice 11/07/16 documented as of this encounter
--- OUTSIDE RECORDS SUMMARY | 2023-11-14 15:50 | XMS_ITS | Encounter Summary ---
Author Organization [facility] Address [address] [place] [address] Care Team Providers Care Submarine Operator Name Role Phone Binu Torre MD Primary Care Provider [phone] Encounter Details Date Type Department Care Team (Late st Contact Info) Description 10/16/2016 Correspondence [facility]opedics at [facility] Orthopedic [place] [address] [place] [address] Leo Lujan, DO [address] [place] [address] [phone] DISABILITY LETTER Social History Tobacco Use Types [...] on filedocumented in this encounter Care Teams Submarine Operator Relationship Specialty Start Date End Date Binu Torre MD [facility] [address] [place] [address] PCP - General Family Practice 11/07/16 documented as of this encounter
--- OUTSIDE RECORDS SUMMARY | 2023-11-14 15:50 | XMS_ITS | Encounter Summary ---
Author [facility] Address [address] [place] [address] Care Team Providers Care Annealing Oven Operator Name Role Phone Binu Torre MD [...] filedocumented in this encounter Care Teams Annealing Oven Operator Relationship Specialty Start Date End Date Binu Torre MD [facility] [address] [place] [address] PCP - General Family Practice 11/07/16 documented as of this encounter
--- OUTSIDE RECORDS SUMMARY | 2023-11-14 15:50 | XMS_ITS | Encounter Summary ---
Author Organization [facility] Address [address] [place] [address] Care Team Providers Care Photographic Lithographer Name Role Phone Binu Torre MD Primary Care Provider [phone] Encounter Details Date Type Department Care Team [...] on filedocumented in this encounter Care Teams Photographic Lithographer Relationship Specialty Start Date End Date Binu Torre MD [facility] [address] [place] [address] PCP - General Family Practice 11/07/16 documented as of this encounter
--- OUTSIDE RECORDS SUMMARY | 2023-11-14 15:50 | XMS_ITS | Encounter Summary ---
Author Organization [facility] Address [address] [place] [address] Care Team Providers Care Order Puller Name Role Phone Binu Torre MD Primary Care Provider [phone] Encounter Details Date Type Department Care Team (Late st Contact Info) Description 04/02/2016 Correspondence [facility] Radiology [address] [place] [id number] Radiology, Provider MRI SAFETY SHEET AND COMPATIBILITY [...] on filedocumented in this encounter Care Teams Order Puller Relationship Specialty Start Date End Date Binu Torre MD [facility] [address] [place] [address] PCP - General Family Practice 11/07/16 documented as of this encounter
--- OUTSIDE RECORDS SUMMARY | 2023-11-14 15:50 | XMS_ITS | Encounter Summary ---
Author Organization [facility] Address [address] [place] [address] Care Team Providers Care Timber Girdler Name Role Phone Binu Torre MD Primary Care Provider [phone] Encounter Details Date Type Department Care Team (Late st Contact Info) Description 05/23/2016 [facility] [address] [facility] [place] [address] Leo Lujan, DO [address] [place] [address] ARTHROSCOPY Social History Tobacco Use Types Packs/Day [...] filedocumented in this encounter Care Teams Timber Girdler Relationship Specialty Start Date End Date Binu Torre MD [facility] [address] [place] [address] PCP - General Family Practice 11/07/16 documented as of this encounter
--- OUTSIDE RECORDS SUMMARY | 2023-11-14 15:50 | XMS_ITS | Encounter Summary ---
Author Organization [facility] Address [address] [place] [address] Care Team Providers Care Business Banker Name Role Phone Binu Torre MD Primary Care Provider [phone] Encounter Details Date Type Department Care Team [...] on filedocumented in this encounter Care Teams Business Banker Relationship Specialty Start Date End Date Binu Torre MD [facility] [address] [place] [address] PCP - General Family Practice 11/07/16 documented as of this encounter
--- OUTSIDE RECORDS SUMMARY | 2023-11-14 15:50 | XMS_ITS | Encounter Summary ---
Author Organization [facility] Address [address] [place] [address] Care Team Providers Care University Teacher Name Role Phone Binu Torre MD Primary Care Provider [phone] Encounter Details Date Type Department Care Team [...] on filedocumented in this encounter Care Teams University Teacher Relationship Specialty Start Date End Date Binu Torre MD [facility] [address] [place] [address] PCP - General Family Practice 11/07/16 documented as of this encounter
--- OUTSIDE RECORDS SUMMARY | 2023-11-14 15:50 | XMS_ITS | Encounter Summary ---
Author Organization [facility] Address [address] [place] [address] Care Team Providers Care Video Rental Clerk Name Role Phone Binu Torre MD Primary Care Provider [phone] Encounter Details Date Type Department Care Team [...] on filedocumented in this encounter Care Teams Video Rental Clerk Relationship Specialty Start Date End Date Binu Torre MD [facility] [address] [place] [address] PCP - General Family Practice 11/07/16 documented as of this encounter
--- OUTSIDE RECORDS SUMMARY | 2023-11-14 15:50 | XMS_ITS | Encounter Summary ---
Author Organization [facility] Address [address] [place] [address] Care Team Providers Care Admin Prog Coord Name Role Phone Binu Torre MD Primary Care Provider [phone] Encounter Details Date Type Department Care Team [...] on filedocumented in this encounter Care Teams Admin Prog Coord Relationship Specialty Start Date End Date Binu Torre MD [facility] [address] [place] [address] PCP - General Family Practice 11/07/16 documented as of this encounter
--- OUTSIDE RECORDS SUMMARY | 2023-11-14 15:50 | XMS_ITS | Encounter Summary ---
Author Organization [facility] Address [address] [place] [address] Care Team Providers Care Human Resource Officer Name Role Phone Binu Torre MD Primary Care Provider [phone] Encounter Details Date Type Department Care Team (Late st Contact Info) Description 09/08/2015 Scanned History External to External, [place] [address] EMS RUN SHEET Social History Tobacco Use [...] on filedocumented in this encounter Care Teams Human Resource Officer Relationship Specialty Start Date End Date Binu Torre MD [facility] [address] [place] [address] PCP - General Family Practice 11/07/16 documented as of this encounter
--- OUTSIDE RECORDS SUMMARY | 2023-11-14 15:50 | XMS_ITS | Encounter Summary ---
Author Organization [facility] Address [address] [place] [address] Care Team Providers Care Doctor Of Audiology Name Role Phone Binu Torre MD Primary Care Provider [phone] Encounter Details Date Type Department Care Team ([facility] st Contact Info) Description 11/07/2016 [facility]ence [facility] [address] [place] [address] Monie Ortiz MD [address] [place] [address] [id number] LEFT ANKLE ARTHROSCOPY Social History Tobacco Use [...] on filedocumented in this encounter Care Teams Doctor Of Audiology Relationship Specialty Start Date End Date Binu Torre MD [facility] [address] [place] [address] PCP - General Family Practice 11/07/16 documented as of this encounter
--- OUTSIDE RECORDS SUMMARY | 2023-11-14 15:50 | XMS_ITS | Encounter Summary ---
Author Organization [facility] Address [address] [place] [address] Care Team Providers Care Fire Protection Equipment Technician Name Role Phone Binu Torre MD Primary Care Provider [phone] Encounter Details Date Type Department Care Team (Late st Contact Info) Description 11/01/2015 Correspondence External to External, [place] [address] PRIOR AUTHORIZATION Social History Tobacco Use Types [...] on filedocumented in this encounter Care Teams Fire Protection Equipment Technician Relationship Specialty Start Date End Date Binu Torre MD [facility] [address] [place] [address] PCP - General Family Practice 11/07/16 documented as of this encounter
--- OUTSIDE RECORDS SUMMARY | 2023-11-14 15:50 | XMS_ITS | Encounter Summary ---
Author Organization [facility] Address [address] [place] [address] Care Team Providers Care Grinder Setup Operator Name Role Phone Binu Torre MD Primary Care Provider [phone] Encounter Details Date Type Department Care Team (Late st Contact Info) Description 11/14/2015 [facility] [address] [place] [address] Leo Lujan, DO [address] [place] [address] LEFT KNEE ARTHROSCOPY Social History Tobacco Use [...] on filedocumented in this encounter Care Teams Grinder Setup Operator Relationship Specialty Start Date End Date Binu Torre MD [facility] [address] [place] [address] PCP - General Family Practice 11/07/16 documented as of this encounter
--- OUTSIDE RECORDS SUMMARY | 2023-11-14 15:50 | XMS_ITS | Encounter Summary ---
Author Organization [facility] Address [address] [place] [address] Care Team Providers Care Grout Pump Operator Name Role Phone Binu Torre MD Primary Care Provider [phone] Encounter Details Date Type Department Care Team (Late st Contact Info) Description 07/02/2016 [facility] 435 [facility] [place] [address] Leo Lujan, DO [address] [place] [address] CONFIRMATION OF ORDER Social History Tobacco Use [...] on filedocumented in this encounter Care Teams Grout Pump Operator Relationship Specialty Start Date End Date Binu Torre MD [facility] [address] [place] [address] PCP - General Family Practice 11/07/16 documented as of this encounter
--- OUTSIDE RECORDS SUMMARY | 2023-11-14 15:50 | XMS_ITS | Encounter Summary ---
Author Organization [facility] Address [address] [place] [address] Care Team Providers Care Marketing Area Manager Name Role Phone Binu Torre MD Primary Care Provider [phone] Encounter Details Date Type Department Care Team [...] on filedocumented in this encounter Care Teams Marketing Area Manager Relationship Specialty Start Date End Date Binu Torre MD [facility] [address] [place] [address] PCP - General Family Practice 11/07/16 documented as of this encounter
--- OUTSIDE RECORDS SUMMARY | 2023-11-14 15:50 | XMS_ITS | Encounter Summary ---
Author Organization [facility] Address [address] [place] [address] Care Team Providers Care Hydraulic Assembler Name Role Phone Binu Torre MD Primary Care Provider [phone] Encounter Details Date Type Department Care Team (Latest Contact Info) Description 05/06/2016 Consent for Procedure/Treatme nt [facility]ty [facility] [address] [place] [address] Monie Ortiz MD [address] [place] [id number] RH INFORMED CONSENT Social History Tobacco Use [...] on filedocumented in this encounter Care Teams Hydraulic Assembler Relationship Specialty Start Date End Date Binu Torre MD [facility] [address] [place] [address] PCP - General Family Practice 11/07/16 documented as of this encounter
--- OUTSIDE RECORDS SUMMARY | 2023-11-14 15:50 | XMS_ITS | Encounter Summary ---
Author Organization [facility] [place] [address] Care Team Providers Care Construction Trench Digger Name Role Phone Binu Torre MD Primary Care Provider [phone] Encounter Details Date Type Department Care Team (Late st Contact Info) Description 05/10/2016 Correspondence External to External, [place] [address] HISTORY AND PHYSICAL Social History Tobacco Use [...] on filedocumented in this encounter Care Teams Construction Trench Digger Relationship Specialty Start Date End Date Binu Torre MD [facility] [address] [place] [address] PCP - General Family Practice 11/07/16 documented as of this encounter
--- OUTSIDE RECORDS SUMMARY | 2023-11-14 15:50 | XMS_ITS | Clinical Summary ---
Author Organization [facility] Address [place], [place] [address] Care Team Providers Care Maintenance Team Leader Name Role Phone Leo Lujan DO Primary Care Provider [phone] Allergies No known active allergies Medications Medication Sig Dispensed Refills Start Date End Date Status acetaminophen (TYLENOL EXTRA STRGTH) 500 mg tablet Take 1,000 mg by mouth. 10/10/2015 Active Active Problems Problem Noted Date Diagnosed Date Left knee pain 12/29/2016 s/p left knee open patellar tendon and extensor mechanism repair DOS: 09/08/2015 [facility] 12/29/2016 s/p placement of left knee c losed reduction and placement of left knee spanning external fixator DOS: 09/09/2016 [facility] 12/29/2016 s/p removal of spanning exte rnal fixator of the left knee DOS: 10/10/2015 [facility] 12/29/2016 s/p left knee PCL reconstruc tion with allograft, ACL reconstruction with hamstring allograft, posterior lateral corner reconsruction, peroneal nerve neurolysis, chondroplasty DOS: 11/14/2015 12/29/2016 s/p left knee partial latera l menisectomy DOS: 05/23/2016 [facility] 12/29/2016 Instability of left knee joint 12/29/2016 [...] age to complete this topic Care Teams Maintenance Team Leader Relationship Specialty Start Date End Date Leo Lujan DO PCP - General Surgery - Orthopedics 12/16/16
--- OUTSIDE RECORDS SUMMARY | 2023-11-14 15:50 | XMS_ITS | Encounter Summary ---
Author Organization [facility] Address [address] [place] [address] Care Team Providers Care Conservation Planner Name Role Phone Binu Torre MD Primary Care Provider [phone] Encounter Details Date Type Department Care Team [...] on filedocumented in this encounter Care Teams Conservation Planner Relationship Specialty Start Date End Date Binu Torre MD [facility] [address] [place] [address] PCP - General Family Practice 11/07/16 documented as of this encounter
--- OUTSIDE RECORDS SUMMARY | 2023-11-14 15:50 | XMS_ITS | Encounter Summary ---
Author Organization [facility] Address [address] [place] [address] Care Team Providers Care Keeper Helper Name Role Phone Binu Torre MD Primary Care Provider [phone] Encounter Details Date Type Department Care Team (Late st Contact Info) Description 10/03/2015 [facility] [address] [facility] [place] [address] Leo Lujan, DO [address] [place] [address] CONFIRMATION OF ORDER Social History Tobacco Use [...] on filedocumented in this encounter Care Teams Keeper Helper Relationship Specialty Start Date End Date Binu Torre MD [facility] [place] [address] PCP - General Family Practice 11/07/16 documented as of this encounter
--- OUTSIDE RECORDS SUMMARY | 2023-11-14 15:50 | XMS_ITS | Encounter Summary ---
Author Organization [facility] Address [address] [place] [address] Care Team Providers Care Emr Specialist Name Role Phone Binu Torre MD Primary Care Provider [phone] Encounter Details Date Type Department Care Team (Late st Contact Info) Description 10/16/2016 Correspondence Orthopedics at [facility] Orthopedic [facility] [address] [place] [address] Leo Lujan, DO [address] [place] [address] STATEMENT OF SICKNESS Social History Tobacco Use [...] on filedocumented in this encounter Care Teams Emr Specialist Relationship Specialty Start Date End Date Binu Torre MD [facility] [address] [place] [address] PCP - General Family Practice 11/07/16 documented as of this encounter
--- OUTSIDE RECORDS SUMMARY | 2023-11-14 15:50 | XMS_ITS | Clinical Summary ---
Author Organization [facility] Address [address] [address] Care Team Providers Care Church Official Name Role Phone Binu Torre MD Primary Care Provider [phone] Source Comments You are receiving this document as you are listed as the primary care provider,follow-up provider, or the patient has been referred to you for consultation.This is in compliance with the Medicare and[facility] EHR Incentive Program,which states Providers who transition their patient to another setting of careor provider of care or refers their patient to another provider of care shouldprovide summary care record for each transition of care or referral. [employer] Allergies No known active allergies Medications Medication [...] (1) 1993 Cholesterol 2009 COVID-19 Vaccine ( season) 2022 Influenza (#1) 2023 12/08/2013, 12/09/2011 Zoster/Shingles (1 of 2) 2024 [...] this topic Medical Devices Implanted Type Area Laborer [employer]oder Farm Device Identifier Shelf Expiration Date Model / Serial / Lot Bone Tendon Achilles 19.5-38 - [id number] Implanted:Qty: 1 on 11/14/2015 by Leo Lujan DO at [facility] BIOLOGIC Left: KNEE MTF 03/30/2019 [id number] / [id number] / Semitendinosus Tendon Implanted:Qty: 1 on 11/14/2015 by Leo Lujan DO at [facility] BIOLOGIC Left: KNEE Musculoskeletal Transplant Fnd 09/26/2019 [id number] / [id number] / Bone Tib Tendon Post - [id number] Implanted:Qty: 1 on 11/14/2015 at [facility] BIOLOGIC Left: KNEE Musculoskeletal Transplant Fnd 10/07/2018 [id number] / [id number] / NA Simone Rmr [address] 2.5x650 - [id number] Implanted:Qty: 1 on 09/08/2015 by Monie Ortiz MD at [facility] DEVICE Left: TIBIA MIDSHAFT J&J DePuy Synthes - Trauma 06/27/2024 351.709S / / [id number] Nail Tib Ti [address] 9.0x330 - [id number] Implanted:Qty: 1 on 09/08/2015 by Monie Ortiz MD at [facility] DEVICE Left: TIBIA MIDSHAFT DePuy Synthes - Trauma 03/29/2024 04.004.3 46S / / [id number] Endcap Ti T40 Ex Gry 10mm - [id number] Implanted:Qty: 1 on 09/08/2015 by Monie Ortiz MD at [facility] DEVICE Left: TIBIA PROXIMAL DePuy Synthes - Trauma 04.004.0 10 / / Sut Russell Superquick - [id number] Implanted:Qty: 1 on 09/08/2015 by Monie Ortiz MD at [facility] DEVICE Left: TIBIA PROXIMAL DePuy Synthes - Trauma 01/27/2018 [id number] / / [id number] Scr Tyler 4.0x40 Lng-Thrd - [id number] Implanted:Qty: 2 on 09/08/2015 by Monie Ortiz MD at [facility] DEVICE Left: ANKLE J 207.740 / / Scr Lk Ti T25 4.0x30 - [id number] Implanted:Qty: 1 on 09/08/2015 at [facility] DEVICE Left: TIBIA MIDSHAFT J&J DePuy Synthes - Trauma 04.005.4 20 / / Scr Lk Ti T25 4.0x38 - [id number] Implanted:Qty: 1 on 09/08/2015 at [facility] DEVICE Left: TIBIA MIDSHAFT J&J DePuy Synthes - Trauma 04.005.4 28 / / Scr Lk Ti T25 4.0x42 - [id number] Implanted:Qty: 1 on 09/08/2015 at [facility] DEVICE Left: TIBIA PROXIMAL J 04.005.4 32 / / Pin [place] Half Sfdr Ss 5x150 - [id number] Implanted:Qty: 2 on 09/10/2015 by Monie Ortiz MD at [facility] DEVICE Left: LEG [employer] 5018-5-1 50 / / Simone Carbon Conn 79m327 - [id number] Implanted:Qty: 1 on 09/10/2015 at [facility] DEVICE Left: LEG [employer] 4922-8-4 50 / / Pin [place] Half Sfdr Ss 5x180 - [id number] Implanted:Qty: 2 on 09/10/2015 by Monie Ortiz MD at [facility] DEVICE Left: LEG [employer] 5018-6-1 80 / / Tightrope Acl Rt W/Dbly Sut - [id number] Implanted:Qty: 1 on 11/14/2015 by Leo Lujan DO at [facility] DEVICE Left: KNEE [employer] 04/29/2020 AR-1588R T-J / / [id number] Tightrope Acl Abs - [id number] Implanted:Qty: 1 on 11/14/2015 by Leo Lujan DO at [facility] DEVICE Left: KNEE [employer] 07/27/2020 AR-1588T N / / [id number] Tightrope Acl Pcl - [id number] Implanted:Qty: 1 on 11/14/2015 by Leo Lujan DO at [facility] DEVICE Left: KNEE [employer] 02/27/2020 AR-1588T P / / [id number] Scr Biocompos Interfr 6.0x23 - [id number] Implanted:Qty: 1 on 11/14/2015 by Leo Lujan DO at [facility] DEVICE Left: KNEE [employer] 05/27/2017 AR-1360C / / [id number] Scr Biotendesis Swivelock - [id number] Implanted:Qty: 1 on 11/14/2015 by Leo Lujan DO at [facility] DEVICE Left: KNEE [employer] 12/27/2016 AR-1662B C / / [id number] Tightrope Acl Rt W/Dbly Sut - [id number] Implanted:Qty: 1 on 11/14/2015 by Leo Lujan DO at [facility] DEVICE Left: KNEE [employer] 05/27/2020 AR-1588R T-J / / [id number] Tightrope Acl 8x12 - [id number] Implanted:Qty: 1 on 11/14/2015 by Leo Lujan DO at [facility] DEVICE Left: KNEE [employer] 06/27/2020 AR-1588T B / / [id number] Description:BUTTON Scr Rnd Delta Biocompo 11.0x28 - [id number] Implanted:Qty: 1 on 11/14/2015 by Leo Lujan DO at [facility] DEVICE Left: KNEE [employer] 12/27/2016 AR-5028C -11 / / [id number] Russell Bio Swivel Lk 4.75x19.1 - [id number] Implanted:Qty: 1 on 11/14/2015 by Leo Lujan DO at [facility] DEVICE Left: KNEE [employer] 06/27/2017 AR-2324B CCT / / [id number] Scr Rnd Delta Biocompo 8.0x28 - [id number] Implanted:Qty: 1 on 11/14/2015 by Leo Lujan DO at [facility] DEVICE Left: KNEE [employer] 06/27/2017 AR-5028C -08 / / [id number] Tyler Button Passport 8x60 - [id number] Implanted:Qty: 1 on 11/14/2015 at [facility] DEVICE [employer] Inc 04/29/2020 AR-6592 - 08-60 / / [id number] Advance Directives * Full Code (Latest Code [...] 3:19 PM 09/08/2015 10:55 PM Care Teams Church Official Relationship Specialty Start Date End Date Binu Torre MD [facility] [address] [place] [address] PCP - General Family Practice 11/07/16
[2023-11-14 15:51] LABS: Calcium* 8.9 mg/dL (8.4-10.6)
--- OUTSIDE RECORDS SUMMARY | 2023-11-14 15:51 | XMS_ITS | Encounter Summary ---
Author Organization [facility] Address [address] [place] [address] Care Team Providers Care Senior Manager Name Role Phone Binu Torre MD Primary Care Provider [phone] Encounter Details Date Type Department Care Team (Late st Contact Info) Description 09/08/2015 Correspondence [facility] Radiology [address] [place] [address] Radiology, Provider MRI SAFETY SHEET AND COMPATIBILITY [...] filedocumented in this encounter Care Teams Senior Manager Relationship Specialty Start Date End Date Binu Torre MD [facility] [address] [place] [address] PCP - General Family Practice 11/07/16 documented as of this encounter
[2023-11-14 15:53] LABS: C Reactive Protein* 5.8 mg/dL (0.5-1.0)
[2023-11-14] MEDS: LACTATED RINGERS 1000 ML 1,000 ML 150 ML IV (16:50)
[2023-11-14 17:27] LABS: Lactate Sepsis 2 Hour 1.2 mmol/L (0.5-1.9)
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
[2023-11-14 20:07] LABS: Strep A DNA Probe* NOT DETECTED (Not Detectd)
--- NOTE | 2023-11-14 20:10 | ED.NURSE ---
pt given ice chips, okd per MD Maier.
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
--- OUTSIDE RECORDS SUMMARY | 2023-11-14 22:34 | XMS_ITS | Encounter Summary ---
Author Organization [facility] Address [address] [place] [address] Care Team Providers Care [place] Examiner Name Role Phone Bniu Torre MD Primary Care Provider [phone] Encounter Details Date Type Department Care Team [...] on filedocumented in this encounter Care Teams [place] Examiner Relationship Specialty Start Date End Date Binu Torre MD [facility] [address] [place] [id number] PCP - General Family Practice 11/07/16 documented as of this encounter
--- OUTSIDE RECORDS SUMMARY | 2023-11-14 22:34 | XMS_ITS | Encounter Summary ---
Author Organization [facility] Address [address] [place] [address] Care Team Providers Care Exterior Work Helper Name Role Phone Binu Torre MD Primary Care Provider [phone] Encounter Details Date Type Department Care Team (Late st Contact Info) Description 11/01/2015 Correspondence External to External, [place] [address] PRIOR AUTHORIZATION Social History Tobacco Use Types [...] on filedocumented in this encounter Care Teams Exterior Work Helper Relationship Specialty Start Date End Date Binu Torre MD [facility] [address] [place] [address] PCP - General Family Practice 11/07/16 documented as of this encounter
--- OUTSIDE RECORDS SUMMARY | 2023-11-14 22:34 | XMS_ITS | Clinical Summary ---
Author Organization [facility] Address [place], [place] [address] Care Team Providers Care Lime Kiln And Recausticizing Operator Name Role Phone Leo Lujan DO Primary Care Provider Allergies No known active allergies Medications Medication Sig Dispensed Refills Start Date End Date Status acetaminophen (TYLENOL EXTRA STRGTH) 500 mg tablet Take 1,000 mg by mouth. 10/10/2015 Active Active Problems Problem Noted Date Diagnosed Date Left knee pain 12/29/2016 s/p left knee open patellar tendon and extensor mechanism repair DOS: 09/08/2015 [facility] 12/29/2016 s/p placement of left knee c losed reduction and placement of left knee spanning external fixator DOS: 09/09/2016 [facility] 12/29/2016 s/p removal of spanning exte rnal fixator of the left knee DOS: 10/10/2015 [facility] 12/29/2016 s/p left knee PCL reconstruc tion with allograft, ACL reconstruction with hamstring allograft, posterior lateral corner reconsruction, peroneal nerve neurolysis, chondroplasty DOS: 11/14/2015 12/29/2016 s/p left knee partial latera l menisectomy DOS: 05/23/2016 [facility] 12/29/2016 Instability of left knee [...] age to complete this topic Care Teams Lime Kiln And Recausticizing Operator Relationship Specialty Start Date End Date Leo Lujan DO PCP - General Surgery - Orthopedics 12/16/16
--- OUTSIDE RECORDS SUMMARY | 2023-11-14 22:34 | XMS_ITS | Encounter Summary ---
Author Organization [facility] Address [address] [place] [address] Care Team Providers Care Dough Braker Name Role Phone Binu Torre MD Primary [...] on filedocumented in this encounter Care Teams Dough Braker Relationship Specialty Start Date End Date Binu Torre MD [facility] [address] [place] [address] PCP - General Family Practice 11/07/16 documented as of this encounter
--- OUTSIDE RECORDS SUMMARY | 2023-11-14 22:34 | XMS_ITS | Encounter Summary ---
Author Organization [facility] Address [address] [place] [address] Care Team Providers Care Lump Machine Operator Name Role Phone Binu Torre MD Primary Care Provider [phone] Encounter Details Date Type Department Care Team (Latest Contact Info) Description 05/06/2016 Consent for Procedure/Treatme nt [facility] [address] [place] [address] Monie Ortiz MD [address] [place] [address] RH INFORMED CONSENT Social History Tobacco Use [...] on filedocumented in this encounter Care Teams Lump Machine Operator Relationship Specialty Start Date End Date Binu Torre MD [facility] [address] [place] [address] PCP - General Family Practice 11/07/16 documented as of this encounter
--- OUTSIDE RECORDS SUMMARY | 2023-11-14 22:34 | XMS_ITS | Encounter Summary ---
Author Organization [facility] Address [address] [place] [address] Care Team Providers Care Paper Coater Name Role Phone Binu Torre MD Primary Care Provider [phone] Encounter Details Date Type Department Care Team [...] on filedocumented in this encounter Care Teams Paper Coater Relationship Specialty Start Date End Date Binu Torre MD [facility] [address] [place] [address] PCP - General Family Practice 11/07/16 documented as of this encounter
--- OUTSIDE RECORDS SUMMARY | 2023-11-14 22:34 | XMS_ITS | Encounter Summary ---
Author Organization [facility] Address [address] [place] [address] Care Team Providers Care Drug Worker Name Role Phone Binu Torre MD Primary Care Provider [phone] Encounter Details Date Type Department Care Team [...] on filedocumented in this encounter Care Teams Drug Worker Relationship Specialty Start Date End Date Binu Torre MD [facility] [address] [place] [address] PCP - General Family Practice 11/07/16 documented as of this encounter
--- OUTSIDE RECORDS SUMMARY | 2023-11-14 22:34 | XMS_ITS | Encounter Summary ---
Author Organization [facility] Address [address] [place] [address] Care Team Providers Care Sieve Grader Tender Name Role Phone Binu Torre MD Primary Care Provider [phone] Encounter Details Date Type Department Care Team (Late st Contact Info) Description 10/16/2016 Correspondence Orthopedics at [facility] Orthopedic [place] [address] [place] [address] Leo Lujan, DO [address] [place] [address] [id number] DISABILITY LETTER Social History Tobacco Use Types [...] on filedocumented in this encounter Care Teams Sieve Grader Tender Relationship Specialty Start Date End Date Bniu Torre MD [facility] [address] [place] [address] PCP - General Family Practice 11/07/16 documented as of this encounter
--- OUTSIDE RECORDS SUMMARY | 2023-11-14 22:34 | XMS_ITS | Encounter Summary ---
Author Organization [facility] Address [address] [place] [address] Care Team Providers Care Drop Worker Name Role Phone Binu Torre MD Primary Care Provider [phone] Encounter Details Date Type Department Care Team [...] on filedocumented in this encounter Care Teams Drop Worker Relationship Specialty Start Date End Date Binu Torre MD [facility] [address] [place] [address] PCP - General Family Practice 11/07/16 documented as of this encounter
--- OUTSIDE RECORDS SUMMARY | 2023-11-14 22:34 | XMS_ITS | Encounter Summary ---
Author Organization [facility] Address [address] [place] [address] Care Team Providers Care Tail Dogger Name Role Phone Binu Torre MD Primary Care Provider [phone] Encounter Details Date Type Department Care Team (Late st Contact Info) Description 10/16/2016 Correspondence Orthopedics at [facility] Orthopedic [facility] [address] [place] [address] Leo Lujan, DO [address] [place] [address] STATEMENT OF SICKNESS Social History Tobacco Use [...] on filedocumented in this encounter Care Teams Tail Dogger Relationship Specialty Start Date End Date Binu Torre MD [facility] [address] [place] [address] PCP - General Family Practice 11/07/16 documented as of this encounter
--- OUTSIDE RECORDS SUMMARY | 2023-11-14 22:34 | XMS_ITS | Encounter Summary ---
Author Organization [facility] Address [address] [place] [address] Care Team Providers Care Marine Engine Machinist Name Role Phone Binu Torre MD Primary Care Provider [phone] Encounter Details Date Type Department Care Team (Late st Contact Info) Description 05/10/2016 Correspondence External to External, [place] [address] HISTORY AND PHYSICAL Social History Tobacco Use [...] on filedocumented in this encounter Care Teams Marine Engine Machinist Relationship Specialty Start Date End Date Binu Torre MD [facility] [address] [place] [address] PCP - General Family Practice 11/07/16 documented as of this encounter
--- OUTSIDE RECORDS SUMMARY | 2023-11-14 22:34 | XMS_ITS | Encounter Summary ---
Author Organization [facility] Address [address] [place] [address] Care Team Providers Care Creative Services Specialist Name Role Phone Binu Torre MD Primary Care Provider [phone] Encounter Details Date Type Department Care Team (Late st Contact Info) Description 05/23/2016 Correspondence [facility] [address] [place] [address] Leo Lujan, DO [address] [place] [address] ARTHROSCOPY Social History Tobacco Use Types Packs/Day [...] on filedocumented in this encounter Care Teams Creative Services Specialist Relationship Specialty Start Date End Date Binu Torre MD [facility] [address] [place] [address] PCP - General Family Practice 11/07/16 documented as of this encounter
--- OUTSIDE RECORDS SUMMARY | 2023-11-14 22:34 | XMS_ITS | Encounter Summary ---
Author Organization [facility] Address [address] [place] [address] Care Team Providers Care Supervisor Drying Name Role Phone Binu Torre MD Primary Care Provider Encounter Details Date Type Department Care Team (Late st Contact Info) Description 07/02/2016 Correspondence [facility] 435 [place] [address] Leo Lujan, DO [address] [place] [address] CONFIRMATION OF ORDER Social History Tobacco Use [...] filedocumented in this encounter Care Teams Supervisor Drying Relationship Specialty Start Date End Date Binu Torre MD [facility] [address] [place] [address] PCP - General Family Practice 11/07/16 documented as of this encounter
--- OUTSIDE RECORDS SUMMARY | 2023-11-14 22:34 | XMS_ITS | Encounter Summary ---
Author Organization [facility] Address [address] [place] [address] Care Team Providers Care Orchestra Conductor Name Role Phone Binu Torre MD Primary Care Provider [phone] Encounter Details Date Type Department Care Team [...] on filedocumented in this encounter Care Teams Orchestra Conductor Relationship Specialty Start Date End Date Binu Torre MD [facility] [address] [place] [address] PCP - General Family Practice 11/07/16 documented as of this encounter
--- OUTSIDE RECORDS SUMMARY | 2023-11-14 22:34 | XMS_ITS | Encounter Summary ---
Author Organization [facility] Address [address] [place] [address] Care Team Providers Care Web Editor Name Role Phone Binu Torre MD Primary Care Provider [phone] Encounter Details Date Type Department Care Team (Late st Contact Info) Description 11/27/2015 Correspondence [facility] 435 [facility] [place] [address] Leo Lujan, DO [address] [place] [address] MEDICAL STATUS Social History Tobacco Use Types [...] on filedocumented in this encounter Care Teams Web Editor Relationship Specialty Start Date End Date Binu Torre MD [facility] [address] [place] [address] PCP - General Family Practice 11/07/16 documented as of this encounter
--- OUTSIDE RECORDS SUMMARY | 2023-11-14 22:34 | XMS_ITS | Clinical Summary ---
Author Organization [facility] Address [address] [address] Care Team Providers Care Human Resources Communications Manager Name Role Phone Binu Torre MD Primary Care Provider [phone] Source Comments You are receiving this document as you are listed as the primary care provider,follow-up provider, or the patient has been referred to you for consultation.This is in compliance with the Medicare and[facility] EHR Incentive Program,which states Providers who transition their patient to another setting of careor provider of care or refers their patient to another provider of care shouldprovide summary care record for each transition of care or referral. IMGuest Allergies No known active allergies Medications Medication [...] this topic Medical Devices Implanted Type Area Pbx Supervisor Device Identifier Shelf Expiration Date Model / Serial / Lot Bone Tendon Achilles 19.5-38 - [id number] Implanted:Qty: 1 on 11/14/2015 by Leo Lujan DO at [facility] BIOLOGIC Left: KNEE MTF 03/30/2019 [id number] / [id number] / Semitendinosus Tendon Implanted:Qty: 1 on 11/14/2015 by Leo Lujan DO at [facility] BIOLOGIC Left: KNEE Musculoskeletal Transplant Fnd 09/26/2019 [id number] / [id number] / Bone Tib Tendon Post - [id number] Implanted:Qty: 1 on 11/14/2015 at [facility] BIOLOGIC Left: KNEE Musculoskeletal Transplant Fnd 10/07/2018 [id number] / [id number] / NA Simone Rmr Balltip St 2.5x650 - [id number] Implanted:Qty: 1 on 09/08/2015 by Monie Ortiz MD at [facility] DEVICE Left: TIBIA MIDSHAFT J&J DePuy Synthes - Trauma 06/27/2024 351.709S / / [id number] Nail Tib Ti [address] 9.0x330 - [id number] Implanted:Qty: 1 on 09/08/2015 by Monie Ortiz MD at [facility] DEVICE Left: TIBIA MIDSHAFT DePuy Synthes - Trauma 03/29/2024 04.004.3 46S / / [id number] Endcap Ti T40 Ex Gry 10mm - [id number] Implanted:Qty: 1 on 09/08/2015 by Monie Ortiz MD at [facility] DEVICE Left: TIBIA PROXIMAL DePuy Synthes - Trauma 04.004.0 10 / / Sut Cortez Superquick - [id number] Implanted:Qty: 1 on 09/08/2015 by Monie Ortiz MD at [facility] DEVICE Left: TIBIA PROXIMAL DePuy Synthes - Trauma 01/27/2018 [id number] / / [id number] Scr Tyler 4.0x40 Lng-Thrd - [id number] Implanted:Qty: 2 on 09/08/2015 by Monie Ortiz MD at [facility] DEVICE Left: ANKLE J 207.740 / / Scr Lk Ti T25 4.0x30 - [id number] Implanted:Qty: 1 on 09/08/2015 at [facility] DEVICE Left: TIBIA MIDSHAFT J&J DePuy Synthes - Trauma 04.005.4 20 / / Scr Lk Ti T25 4.0x38 - [id number] Implanted:Qty: 1 on 09/08/2015 at [facility] DEVICE Left: TIBIA MIDSHAFT J&J DePuy Synthes - Trauma 04.005.4 28 / / Scr Lk Ti T25 4.0x42 - [id number] Implanted:Qty: 1 on 09/08/2015 at [facility] DEVICE Left: TIBIA PROXIMAL J 04.005.4 32 / / Pin Sayre Half Sfdr Ss 5x150 - [id number] Implanted:Qty: 2 on 09/10/2015 by Monie Ortiz MD at [facility] DEVICE Left: LEG [facility] 5018-5-1 50 / / Simone Carbon Conn 47m337 - [id number] Implanted:Qty: 1 on 09/10/2015 at [facility] DEVICE Left: LEG [facility] 4922-8-4 50 / / Pin Sayre Half Sfdr Ss 5x180 - [id number] Implanted:Qty: 2 on 09/10/2015 by Monie Ortiz MD at [facility] DEVICE Left: LEG [facility] 5018-6-1 80 / / Tightrope Acl Rt W/Dbly Sut - [id number] Implanted:Qty: 1 on 11/14/2015 by Leo Lujan DO at [facility] DEVICE Left: KNEE [employer] 04/29/2020 AR-1588R T-J / / [id number] Tightrope Acl Abs - [id number] Implanted:Qty: 1 on 11/14/2015 by Leo Lujan DO at [facility] DEVICE Left: KNEE [employer] 07/27/2020 AR-1588T N / / [id number] Tightrope Acl Pcl - [id number] Implanted:Qty: 1 on 11/14/2015 by Leo Lujan DO at [facility] DEVICE Left: KNEE [employer] 02/27/2020 AR-1588T P / / [id number] Scr Biocompos Interfr 6.0x23 - [id number] Implanted:Qty: 1 on 11/14/2015 by Leo Lujan DO at [facility] DEVICE Left: KNEE [employer] 05/27/2017 AR-1360C / / [id number] Scr Biotendesis Swivelock - [id number] Implanted:Qty: 1 on 11/14/2015 by Leo Lujan DO at [facility] DEVICE Left: KNEE [employer] 12/27/2016 AR-1662B C / / [id number] Tightrope Acl Rt W/Dbly Sut - [id number] Implanted:Qty: 1 on 11/14/2015 by Leo Lujan DO at [facility] DEVICE Left: KNEE [employer] 05/27/2020 AR-1588R T-J / / [id number] Tightrope Acl 8x12 - [id number] Implanted:Qty: 1 on 11/14/2015 by Leo Lujan DO at [facility] DEVICE Left: KNEE [employer] 06/27/2020 AR-1588T B / / [id number] Description:BUTTON Scr Rnd Delta Biocompo 11.0x28 - [id number] Implanted:Qty: 1 on 11/14/2015 by Leo Lujan DO at [facility] DEVICE Left: KNEE [employer] 12/27/2016 AR-5028C -11 / / [id number] Cortez Bio Swivel Lk 4.75x19.1 - [id number] Implanted:Qty: 1 on 11/14/2015 by Leo Lujan DO at [facility] DEVICE Left: KNEE [employer] 06/27/2017 AR-2324B CCT / / [id number] Scr Rnd Delta Biocompo 8.0x28 - [id number] Implanted:Qty: 1 on 11/14/2015 by Leo Lujan DO at [facility] DEVICE Left: KNEE [employer] 06/27/2017 AR-5028C -08 / / [id number] Tyler Button Passport 8x60 - [id number] Implanted:Qty: 1 on 11/14/2015 at [facility] DEVICE [employer] 04/29/2020 AR-6592 - 08-60 / / [id number] Advance Directives * Full Code (Latest Code [...] 3:19 PM 09/08/2015 10:55 PM Care Teams Human Resources Communications Manager Relationship Specialty Start Date End Date Binu Torre MD [facility] [address] [place] [address] PCP - General Family Practice 11/07/16
--- OUTSIDE RECORDS SUMMARY | 2023-11-14 22:34 | XMS_ITS | Encounter Summary ---
Author Organization [facility] Address [address] [place] [address] Care Team Providers Care Grocery Store Associate Name Role Phone Binu Torre MD Primary Care Provider [phone] Encounter Details Date Type Department Care Team (Late st Contact Info) Description 04/02/2016 Correspondence [facility] Radiology [address] [place] [address] Radiology, Provider MRI SAFETY SHEET AND COMPATIBILITY [...] on filedocumented in this encounter Care Teams Grocery Store Associate Relationship Specialty Start Date End Date Binu Torre MD [facility] [address] [place] [address] PCP - General Family Practice 11/07/16 documented as of this encounter
--- OUTSIDE RECORDS SUMMARY | 2023-11-14 22:34 | XMS_ITS | Encounter Summary ---
Author Organization [facility] Address [address] [place] [address] Care Team Providers Care Dater Assembler Name Role Phone Binu Torre MD Primary Care Provider [phone] Encounter Details Date Type Department Care Team ([facility] st Contact Info) Description 11/07/2016 Correspondence [facility] [address] [place] [address] Monie Ortiz MD [address] [place] [address] [id number] LEFT ANKLE ARTHROSCOPY Social History Tobacco Use [...] on filedocumented in this encounter Care Teams Dater Assembler Relationship Specialty Start Date End Date Binu Torre MD [facility] [address] [place] [address] PCP - General Family Practice 11/07/16 documented as of this encounter
--- OUTSIDE RECORDS SUMMARY | 2023-11-14 22:34 | XMS_ITS | Encounter Summary ---
Author Organization [facility] Address [address] [place] [address] Care Team Providers Care Seismograph Helper Name Role Phone Binu Torre MD Primary Care Provider Encounter Details Date Type Department Care Team (Late st Contact Info) Description 09/08/2015 Scanned History External to External, [place] [address] EMS RUN SHEET Social History Tobacco Use [...] on filedocumented in this encounter Care Teams Seismograph Helper Relationship Specialty Start Date End Date Binu Torre MD [facility] [address] [place] [address] PCP - General Family Practice 11/07/16 documented as of this encounter
--- OUTSIDE RECORDS SUMMARY | 2023-11-14 22:34 | XMS_ITS | Encounter Summary ---
Author Organization [facility] Address [address] [place] [address] Care Team Providers Care Dental Assistant Instructor Name Role Phone Binu Torre MD Primary Care Provider [phone] Encounter Details Date Type Department Care Team [...] on filedocumented in this encounter Care Teams Dental Assistant Instructor Relationship Specialty Start Date End Date Binu Torre MD [facility] [address] [place] [address] PCP - General Family Practice 11/07/16 documented as of this encounter
--- OUTSIDE RECORDS SUMMARY | 2023-11-14 22:34 | XMS_ITS | Encounter Summary ---
Author Organization [facility] Address [address] [place] [address] Care Team Providers Care Flow Worker Name Role Phone Binu Torre MD Primary Care Provider [phone] Encounter Details Date Type Department Care Team (Late st Contact Info) Description 11/14/2015 Correspondence [facility]ty [facility] 435 [facility] [place] [address] Leo Lujan, DO [address] [place] [address] LEFT KNEE ARTHROSCOPY Social History Tobacco Use [...] on filedocumented in this encounter Care Teams Flow Worker Relationship Specialty Start Date End Date Binu Torre MD [facility] [address] [place] [address] PCP - General Family Practice 11/07/16 documented as of this encounter
--- OUTSIDE RECORDS SUMMARY | 2023-11-14 22:34 | XMS_ITS | Encounter Summary ---
Author Organization [facility] Address [address] [place] [address] Care Team Providers Care Real Estate Recruiter Name Role Phone Binu Torre MD Primary Care Provider [phone] Encounter Details Date Type Department Care Team [...] on filedocumented in this encounter Care Teams Real Estate Recruiter Relationship Specialty Start Date End Date Binu Torre MD [facility] [address] [place] [address] PCP - General Family Practice 11/07/16 documented as of this encounter
--- OUTSIDE RECORDS SUMMARY | 2023-11-14 22:34 | XMS_ITS | Encounter Summary ---
Author Organization [facility] Address [address] [place] [address] Care Team Providers Care Licensed Midwife Name Role Phone Binu Torre MD Primary Care Provider [phone] Encounter Details Date Type Department Care Team [...] on filedocumented in this encounter Care Teams Licensed Midwife Relationship Specialty Start Date End Date Binu Torre MD [facility] [address] [place] [address] PCP - General Family Practice 11/07/16 documented as of this encounter
--- OUTSIDE RECORDS SUMMARY | 2023-11-14 22:34 | XMS_ITS | Encounter Summary ---
Author Organization [facility] Address [address] [place] [address] Care Team Providers Care Veneer Drier Feeder Name Role Phone Binu Torre MD Primary Care Provider [phone] Encounter Details Date Type Department Care Team (Late st Contact Info) Description 10/03/2015 Correspondence [facility] 435 [place] [address] Leo Lujan, DO [address] [place] [address] CONFIRMATION OF ORDER Social History Tobacco Use [...] on filedocumented in this encounter Care Teams Veneer Drier Feeder Relationship Specialty Start Date End Date Binu Torre MD [facility] [address] [place] [address] PCP - General Family Practice 11/07/16 documented as of this encounter
--- OUTSIDE RECORDS SUMMARY | 2023-11-14 22:35 | XMS_ITS | Encounter Summary ---
Author Organization [facility] Address [address] [place] [address] Care Team Providers Care Certified Pediatric Nurse Practitioner Name Role Phone Binu Torre MD Primary Care Provider [phone] Encounter Details Date Type Department Care Team (Late st Contact Info) Description 09/08/2015 Correspondence [facility] Radiology [address] [place] [address] Radiology, Provider MRI SAFETY SHEET AND COMPATIBILITY [...] on filedocumented in this encounter Care Teams Certified Pediatric Nurse Practitioner Relationship Specialty Start Date End Date Binu Torre MD [facility] [address] [place] [address] PCP - General Family Practice 11/07/16 documented as of this encounter
[2023-11-14] MEDS: LACTATED RINGERS 1000 ML 1,000 ML IV (23:01)
[2023-11-14] MEDS: ACETAMINOPHEN 325 MG TABLET 650 MG PO (23:24)
[2023-11-15] VITALS (7 sets, daily range): BP systolic 110–131; BP diastolic 74–84; PULSE 71–80; RESP 16–20; TEMP 36.5–37.2; O2SAT 95–98
[2023-11-15] MEDS: PIPERACILLIN/TAZOBACTAM 3.375 GM in 0.9 % SODIUM CHLORIDE Mini-bag 100 ML IVPB ×4 (00:12→18:43)
[2023-11-15] MEDS: LACTATED RINGERS 1000 ML 1,000 ML 150 ML IV ×3 (00:13→15:27)
[2023-11-15] MEDS: OXYCODONE 5 MG TABLET PO ×2 (00:54→06:11)
[2023-11-15 03:51] LABS: Appearance Urine Clear (Clear); Bilirubin Urine Negative (Negative); Blood Urine Negative (Negative); Color Urine Amber (Yellow); Glucose Urine Negative (Negative); Ketones Urine Negative (Negative); Leukocyte Esterase Urine Negative (Negative); Nitrite Urine Negative (Negative); Protein Urine Trace (Negative); Specific Gravity Urine 1.025 (1.000-1.030); Urobilinogen Urine 0.2 (0.2-1.0); pH Urine 6.5 (5.0-8.5)
[2023-11-15 04:03] LABS: RBC Urine 0-2 (0-2); WBC Urine 0-2 (0-5)
--- NOTE | 2023-11-15 06:28 | PC.NURSE ---
Arrived to the floor at 2240 via wheelchair. Reporting abdominal pain throughout night. See eMAR for intervention. Upon arrival temp 99.7. Tylenol given. Temp wnl upon reassessment. VS otherwise stable. Up with SBA to bathroom. Denies any difficulty swallowing or trouble breathing. Pt does report discomfort in throat. Ice chips given w/ stated relief. Using call light appropriately. ?
[2023-11-15 06:34] LABS: Basophils Percent Auto 0.2 % (0.0-3.0); Eosinophils Percent Auto 1.1 % (0.0-7.0); Hematocrit 42.4 % (37.0-53.0); Hemoglobin* 13.9 gm/dL (13.5-17.5); Immature Granulocytes Pct Auto 0.6 %; Lymphocytes Percent Auto 16.4 % (20-44); Mean Corpuscular HGB Conc 33 gm/dL (32-36); Mean Corpuscular Hemoglobin 29 pg (26-34); Mean Corpuscular Volume 88 fL (80-100); Monocytes Percent Auto 12.5 % (0.0-11.0); Neutrophils Percent Auto 69.2 % (42.0-72.0); Platelet Count* 181 K/uL (140-440); RDW Coefficient of Variation % 13.5 % (11.5-15.5); Red Blood Count 4.82 m/uL (4.30-5.90)
[2023-11-15 06:41] LABS: Slide Review Reflex Yes
[2023-11-15 06:53] LABS: Chloride* 106 mmol/L (96-114); Sodium* 136 mmol/L (135-149)
[2023-11-15 06:54] LABS: Potassium* 3.8 mmol/L (3.6-5.1)
[2023-11-15 06:56] LABS: Creatinine* 1.1 mg/dL (0.5-1.5); Est. Creatinine Clearance* 87.47; Estimated Glomerular Filt Rate 83 ml/min
[2023-11-15 06:57] LABS: Anion Gap 5 mEq/L (7-15); Blood Urea Nitrogen* 13 mg/dL (5-24); Calcium* 8.2 mg/dL (8.4-10.6); Carbon Dioxide* 25 mmol/L (20-32); Glucose* 93 mg/dL (60-115)
[2023-11-15 07:00] LABS: C Reactive Protein* 7.5 mg/dL (0.5-1.0)
[2023-11-15 07:20] LABS: Slide Review Acceptable Review (Acceptable)
--- NOTE | 2023-11-15 08:01 | PM.GSPN ---
Subjective Subjective Date Seen: 11/15/23 Interval history: Patient's pain is not significantly changed. He remained NPO at night. He continues to be a febrile since his presentation to emergency room. He denies nausea or vomiting. Exam Narrative: Exam Narrative: Abdomen is soft, not distended, tender to palpation in the right lower quadrant. Const: Vital Signs, click to edit/add: Vital Signs - 24 hr 11/14/23 14:53 11/14/23 15:55 11/14/23 16:00 Temperature 102.3 F H Pulse Rate 91 89 Pulse Rate [Pulse Oximeter] 76 Respiratory Rate 20 Blood Pressure Blood Pressure [Ri ght Arm] Blood Pressure [Ri ght Upper Arm] 132/74 Pulse Oximetry 96 94 90 Oxygen Delivery Me od Room Air 11/14/23 16:15 11/14/23 16:30 11/14/23 16:43 Temperature Pulse Rate 88 96 86 Pulse Rate [Pulse Oximeter] Respiratory Rate Blood Pressure 155/83 H Blood Pressure [Ri ght Arm] Blood Pressure [Ri ght Upper Arm] Pulse Oximetry 94 93 96 Oxygen Delivery Me thod 11/14/23 16:45 11/14/23 16:58 11/14/23 17:00 Temperature 102.4 F H Pulse Rate 88 93 Pulse Rate [Pulse Oximeter] Respiratory Rate 24 Blood Pressure Blood Pressure [Ri ght Arm] Blood Pressure [Ri ght Upper Arm] Pulse Oximetry 93 95 Oxygen Delivery Me thod 11/14/23 17:02 11/14/23 17:15 11/14/23 17:30 Temperature Pulse Rate 90 94 96 Pulse Rate [Pulse Oximeter] Respiratory Rate Blood Pressure 134/76 Blood Pressure [Ri ght Arm] Blood Pressure [Ri ght Upper Arm] Pulse Oximetry 95 91 92 Oxygen Delivery Me thod 11/14/23 17:32 11/14/23 17:45 11/14/23 18:00 Temperature Pulse Rate 93 97 85 Pulse Rate [Pulse Oximeter] Respiratory Rate Blood Pressure 136/78 Blood Pressure [Ri ght Arm] Blood Pressure [Ri ght Upper Arm] Pulse Oximetry 93 92 95 Oxygen Delivery Me thod 11/14/23 18:02 11/14/23 18:03 11/14/23 18:15 Temperature Pulse Rate 95 93 86 Pulse Rate [Pulse Oximeter] Respiratory Rate Blood Pressure 131/79 Blood Pressure [Ri ght Arm] Blood Pressure [Ri ght Upper Arm] Pulse Oximetry 93 95 94 Oxygen Delivery Me thod 11/14/23 18:30 11/14/23 18:32 11/14/23 18:45 Temperature Pulse Rate 93 87 85 Pulse Rate [Pulse Oximeter] Respiratory Rate Blood Pressure 139/78 Blood Pressure [Ri ght Arm] Blood Pressure [Ri ght Upper Arm] Pulse Oximetry 93 96 94 Oxygen Delivery Me thod 11/14/23 19:00 11/14/23 19:02 11/14/23 19:15 Temperature Pulse Rate 94 84 89 Pulse Rate [Pulse Oximeter] Respiratory Rate Blood Pressure 131/78 Blood Pressure [Ri ght Arm] Blood Pressure [Ri ght Upper Arm] Pulse Oximetry 90 89 93 Oxygen Delivery Me thod 11/14/23 19:32 11/14/23 19:33 11/14/23 19:45 Temperature Pulse Rate 84 89 90 Pulse Rate [Pulse Oximeter] Respiratory Rate Blood Pressure 140/82 H Blood Pressure [Ri ght Arm] Blood Pressure [Ri ght Upper Arm] Pulse Oximetry 96 96 96 Oxygen Delivery Me thod 11/14/23 20:02 11/14/23 20:03 11/14/23 20:15 Temperature Pulse Rate 81 88 Pulse Rate [Pulse Oximeter] Respiratory Rate Blood Pressure 133/84 Blood Pressure [Ri ght Arm] Blood Pressure [Ri ght Upper Arm] Pulse Oximetry 96 96 Oxygen Delivery Me thod 11/14/23 20:30 11/14/23 20:32 11/14/23 20:45 Temperature Pulse Rate 87 92 91 Pulse Rate [Pulse Oximeter] Respiratory Rate Blood Pressure 127/82 Blood Pressure [Ri ght Arm] Blood Pressure [Ri ght Upper Arm] Pulse Oximetry 94 92 96 Oxygen Delivery Me thod 11/14/23 21:00 11/14/23 21:02 11/14/23 21:15 Temperature Pulse Rate 97 98 96 Pulse Rate [Pulse Oximeter] Respiratory Rate Blood Pressure 148/102 H Blood Pressure [Ri ght Arm] Blood Pressure [Ri ght Upper Arm] Pulse Oximetry 93 89 93 Oxygen Delivery Me thod 11/14/23 21:30 11/14/23 21:32 11/14/23 21:33 Temperature Pulse Rate 90 92 88 Pulse Rate [Pulse Oximeter] Respiratory Rate Blood Pressure 118/68 Blood Pressure [Ri ght Arm] Blood Pressure [Ri ght Upper Arm] Pulse Oximetry 95 93 92 Oxygen Delivery Me thod 11/14/23 23:10 11/14/23 23:43 11/14/23 23:43 Temperature 99.7 F H Pulse Rate Pulse Rate [Pulse Oximeter] 82 Respiratory Rate 18 18 Blood Pressure Blood Pressure [Ri ght Arm] 131/79 Blood Pressure [Ri ght Upper Arm] Pulse Oximetry 93 93 93 Oxygen Delivery Me thod Room Air Room Air 11/15/23 01:05 11/15/23 03:31 Temperature 99.0 F 97.7 F Pulse Rate Pulse Rate [Pulse Oximeter] 78 Respiratory Rate 18 Blood Pressure Blood Pressure [Ri ght Arm] 124/75 Blood Pressure [Ri ght Upper Arm] Pulse Oximetry 95 Oxygen Delivery Me thod Room Air Progress Note:A&P Assessment and plan (1) Acute appendicitis: Status: Acute Assessment and Plan: 47-year-old male admitted to the hospital with acute appendicitis and pharyngitis treated with IV antibiotics. We can advance his diet to clear liquids. Patient WBC remains to be 16. I would recommend continuing IV antibiotics until his WBC continues to come down and he is tolerating regular diet.
[2023-11-15] MEDS: IBUPROFEN 400 MG TABLET 800 MG PO ×3 (08:19→18:43)
--- NOTE | 2023-11-15 12:37 | PM.IMPN1 ---
Progress Note: A&P Assessment and plan (1) Acute appendicitis: Problem details: - Early with no concerning features or fecalith. Appreciate Dr. Palacios's recommendations. Will admit for IV antibiotics to treat appendicitis nonsurgically. There is a chance appendicitis will recur, and this was discussed with the patient and his . - start Zosyn, clears, IV fluids, antiemetics, acetaminophen for pain and fever, p.r.n. oxycodone and p.r.n. hydromorphone for pain. Follow labs. Status: Acute (2) Pharyngitis: Problem details: - Covid, influenza, mono, two strep tests today are negative - Exudative and enlarged tonsils, without asymmetry or trismus. I am concerned that this could put him at risk for a compromised airway perioperatively. - Will be on zosyn (also for appendicitis). Status: Acute (3) Sigmoid thickening: Problem details: - will need outpatient diagnostic colonoscopy Status: Acute (4) BMI 40.0-44.9, adult: Problem details: Thick neck, at risk for CAMILO Status: Chronic Plan Continue in hospital for IV antibiotics and IV fluids and monitoring for complications of severe pharyngitis and appendicitis. Time Spent With Patient Total time spent: Total time spent today is 60 minutes in coordination of care and discussing with patient and other providers medical and surgical management of pharyngitis and appendicitis Subjective Date Seen: 11/15/23 Interval history: Ramana Cook is a healthy 47 year old male who presented through the emergency department today for concerns of sore throat, abdominal pain, fever, malaise, and body aches. He was in his usual state of health and was staying with a friend up in [place] on a work trip. His friend likes to sleep with the windows open, and when Arthur woke up yesterday morning, he noted a sore throat, which he thought was due to the windows being open all night. He went to work and felt worse throughout the day. On his car trip home yesterday, he felt somewhat dizzy and ill. When he got home he took a nap. In the evening he continued to feel unwell and had some trouble sleeping overnight due to fever, malaise and sore throat. Her this morning when he woke up he had some epigastric or mid abdominal pain and diarrhea. He denies any nausea or vomiting. He went to urgent care this morning where he was tested for COVID, influenza, strep, and mono. These were negative. He felt very fatigued this afternoon and tried to lay down with his for a bit to get some rest. She then noted that he felt very hot and that his fever was climbing and he was complaining of right lower quadrant pain that was so severe he could barely move. His then brought him to the emergency department. In the emergency department he was diagnosed with early appendicitis without obvious complicating features. He was also diagnosed with pharyngitis. Testing for strep, mono, influenza, COVID all negative. Consultation with surgery and anesthesia led to recommendation of avoiding surgery currently and treating medically with antibiotics due to fairly severe tonsillitis. November 14: Sore throat is about the same as yesterday. He does not have any fever. Abdominal pain is about the same as yesterday. He is tolerating some clear liquids. Poor appetite. Exam Narrative: Exam Narrative: He is alert and appears in no distress. He gives his own history. Speech is normal. No muffling of his sound no stridor and no trismus. Oropharynx shows small airway with prominent tongue. Bilateral egg due date of tonsillitis a little worse on the left than the right. Adequate airway. Neck is supple. He has mild anterior cervical tenderness. No adenopathy. Respirations are clear to auscultation. Cardiovascular: S1, S2, regular rate and rhythm. Abdomen: Bowel sounds are present. Abdomen is soft. He has moderate right lower quadrant tenderness. No peritonitis. Const: Vital Signs, click to edit/add: Vital Signs - 24 hr 11/14/23 14:53 11/14/23 15:55 11/14/23 16:00 Temperature 102.3 F H Pulse Rate 91 89 Pulse Rate [Pulse Oximeter] 76 Respiratory Rate 20 Blood Pressure Blood Pressure [Ri ght Arm] Blood Pressure [Ri ght Upper Arm] 132/74 Pulse Oximetry 96 94 90 Oxygen Delivery Me thod Room Air 11/14/23 16:15 11/14/23 16:30 11/14/23 16:43 Temperature Pulse Rate 88 96 86 Pulse Rate [Pulse Oximeter] Respiratory Rate Blood Pressure 155/83 H Blood Pressure [Ri ght Arm] Blood Pressure [Ri ght Upper Arm] Pulse Oximetry 94 93 96 Oxygen Delivery Me thod 11/14/23 16:45 11/14/23 16:58 11/14/23 17:00 Temperature 102.4 F H Pulse Rate 88 93 Pulse Rate [Pulse Oximeter] Respiratory Rate 24 Blood Pressure Blood Pressure [Ri ght Arm] Blood Pressure [Ri ght Upper Arm] Pulse Oximetry 93 95 Oxygen Delivery Me thod 11/14/23 17:02 11/14/23 17:15 11/14/23 17:30 Temperature Pulse Rate 90 94 96 Pulse Rate [Pulse Oximeter] Respiratory Rate Blood Pressure 134/76 Blood Pressure [Ri ght Arm] Blood Pressure [Ri ght Upper Arm] Pulse Oximetry 95 91 92 Oxygen Delivery Me thod 11/14/23 17:32 11/14/23 17:45 11/14/23 18:00 Temperature Pulse Rate 93 97 85 Pulse Rate [Pulse Oximeter] Respiratory Rate Blood Pressure 136/78 Blood Pressure [Ri ght Arm] Blood Pressure [Ri ght Upper Arm] Pulse Oximetry 93 92 95 Oxygen Delivery Me thod 11/14/23 18:02 11/14/23 18:03 11/14/23 18:15 Temperature Pulse Rate 95 93 86 Pulse Rate [Pulse Oximeter] Respiratory Rate Blood Pressure 131/79 Blood Pressure [Ri ght Arm] Blood Pressure [Ri ght Upper Arm] Pulse Oximetry 93 95 94 Oxygen Delivery Me thod 11/14/23 18:30 11/14/23 18:32 11/14/23 18:45 Temperature Pulse Rate 93 87 85 Pulse Rate [Pulse Oximeter] Respiratory Rate Blood Pressure 139/78 Blood Pressure [Ri ght Arm] Blood Pressure [Ri ght Upper Arm] Pulse Oximetry 93 96 94 Oxygen Delivery Me thod 11/14/23 19:00 11/14/23 19:02 11/14/23 19:15 Temperature Pulse Rate 94 84 89 Pulse Rate [Pulse Oximeter] Respiratory Rate Blood Pressure 131/78 Blood Pressure [Ri ght Arm] Blood Pressure [Ri ght Upper Arm] Pulse Oximetry 90 89 93 Oxygen Delivery Me thod 11/14/23 19:32 11/14/23 19:33 11/14/23 19:45 Temperature Pulse Rate 84 89 90 Pulse Rate [Pulse Oximeter] Respiratory Rate Blood Pressure 140/82 H Blood Pressure [Ri ght Arm] Blood Pressure [Ri ght Upper Arm] Pulse Oximetry 96 96 96 Oxygen Delivery Me thod 11/14/23 20:02 11/14/23 20:03 11/14/23 20:15 Temperature Pulse Rate 81 88 Pulse Rate [Pulse Oximeter] Respiratory Rate Blood Pressure 133/84 Blood Pressure [Ri ght Arm] Blood Pressure [Ri ght Upper Arm] Pulse Oximetry 96 96 Oxygen Delivery Me thod 11/14/23 20:30 11/14/23 20:32 11/14/23 20:45 Temperature Pulse Rate 87 92 91 Pulse Rate [Pulse Oximeter] Respiratory Rate Blood Pressure 127/82 Blood Pressure [Ri ght Arm] Blood Pressure [Ri ght Upper Arm] Pulse Oximetry 94 92 96 Oxygen Delivery Me thod 11/14/23 21:00 11/14/23 21:02 11/14/23 21:15 Temperature Pulse Rate 97 98 96 Pulse Rate [Pulse Oximeter] Respiratory Rate Blood Pressure 148/102 H Blood Pressure [Ri ght Arm] Blood Pressure [Ri ght Upper Arm] Pulse Oximetry 93 89 93 Oxygen Delivery Me thod 11/14/23 21:30 11/14/23 21:32 11/14/23 21:33 Temperature Pulse Rate 90 92 88 Pulse Rate [Pulse Oximeter] Respiratory Rate Blood Pressure 118/68 Blood Pressure [Ri ght Arm] Blood Pressure [Ri ght Upper Arm] Pulse Oximetry 95 93 92 Oxygen Delivery Me thod 11/14/23 23:10 11/14/23 23:43 11/14/23 23:43 Temperature 99.7 F H Pulse Rate Pulse Rate [Pulse Oximeter] 82 Respiratory Rate 18 18 Blood Pressure Blood Pressure [Ri ght Arm] 131/79 Blood Pressure [Ri ght Upper Arm] Pulse Oximetry 93 93 93 Oxygen Delivery Me thod Room Air Room Air 11/15/23 01:05 11/15/23 03:31 11/15/23 08:20 Temperature 99.0 F 97.7 F Pulse Rate Pulse Rate [Pulse Oximeter] 78 Respiratory Rate 18 20 Blood Pressure Blood Pressure [Ri ght Arm] 124/75 Blood Pressure [Ri ght Upper Arm] Pulse Oximetry 95 96 Oxygen Delivery Me thod Room Air Room Air 11/15/23 08:20 Temperature 98.5 F Pulse Rate Pulse Rate [Pulse Oximeter] 75 Respiratory Rate 20 Blood Pressure Blood Pressure [Ri ght Arm] 131/84 [facility] Pulse Oximetry 96 Oxygen Delivery Me thod Room Air Documenting provider has reviewed patient's vital signs: yes Labs Labs: Laboratory Results - last 24 hr 11/14/23 11/14/23 11/14/23 15:20 17:24 19:35 WBC 16.50 H RBC 5.27 Hgb 15.1 Hct 44.7 MCV 85 MCH 29 MCHC 34 RDW Coeff of Caryn 13.2 Plt Count 229 Neut % (Auto) 79.6 H Lymph % (Auto) 8.7 L [place] % (Auto) 9.8 Eos % (Auto) 0.2 Baso % (Auto) 0.2 Neut # (Auto) 13.10 H Lymph # (Auto) 1.40 [place] # (Auto) 1.60 H Eos # (Auto) 0.00 Baso # (Auto) 0.00 Abs Immat Gran (auto) 0.20 Imm/Tot Granulo (auto) 1.5 Diff Slide Review Sodium 137 Potassium 4.0 Chloride 104 Carbon Dioxide 23 Anion Gap 10 BUN 11 Creatinine 1.1 Estimated Creat Clear 87.47 Estimated GFR 83 Glucose 137 H Lactate 2.1 H 1.2 Calcium 8.9 Total Bilirubin 0.8 AST 26 ALT 49 Alkaline Phosphatase 91 C-Reactive Protein 5.8 H Total Protein 7.3 Albumin 4.4 Lipase 40 Urine Color Urine Appearance Urine pH Ur Specific [place] Urine Protein Urine Glucose (UA) Urine Ketones Urine Blood Urine Nitrite Urine Bilirubin Urine Urobilinogen Ur Leukocyte Esterase Urine RBC Urine WBC Ur Squamous Epith Cells Urine Bacteria Group A Strep DNA NOT DETECTED 11/15/23 11/15/23 03:41 05:56 WBC 16.10 H RBC 4.82 Hgb 13.9 Hct 42.4 MCV 88 MCH 29 MCHC 33 RDW Coeff of Caryn 13.5 Plt Count 181 Neut % (Auto) 69.2 Lymph % (Auto) 16.4 L [place] % (Auto) 12.5 H Eos % (Auto) 1.1 Baso % (Auto) 0.2 Neut # (Auto) 11.10 H Lymph # (Auto) 2.60 [place] # (Auto) 2.00 H Eos # (Auto) 0.20 Baso # (Auto) 0.00 Abs Immat Gran (auto) 0.10 Imm/Tot Granulo (auto) 0.6 Diff Slide Review Acceptable Review Sodium 136 Potassium 3.8 Chloride 106 Carbon Dioxide 25 Anion Gap 5 L BUN 13 Creatinine 1.1 Estimated Creat Clear 87.47 Estimated GFR 83 Glucose 93 Lactate Calcium 8.2 L Total Bilirubin AST ALT Alkaline Phosphatase C-Reactive Protein 7.5 H Total Protein Albumin Lipase Urine Color [place] A Urine Appearance Clear Urine pH 6.5 Ur Specific [place] 1.025 Urine Protein Trace A Urine Glucose (UA) Negative Urine Ketones Negative Urine Blood Negative Urine Nitrite Negative Urine Bilirubin Negative Urine Urobilinogen 0.2 Ur Leukocyte Esterase Negative Urine RBC 0-2 Urine WBC 0-2 Ur Squamous Epith Cells None Urine Bacteria None Group A Strep DNA Imaging CT scan - abdomen: Radiologist's impression: NDICATION: Fever. Right lower quadrant guarding. TECHNIQUE: CT abdomen and pelvis acquired with 147 cc of Isovue 370 IV contrast. COMPARISON: None. FINDINGS: Lower chest: Unremarkable. Liver: Low densities measuring up to 2.3 cm in the left lobe most consistent with incidental cysts. The liver is otherwise unremarkable. Spleen: Unremarkable. Pancreas: Unremarkable. Gallbladder and bile ducts: No calcified stones or biliary ductal dilatation. Kidneys: Unremarkable. Adrenal glands: Unremarkable. GI tract: Colonic diverticulosis with circumferential thickening and apparent narrowing of the sigmoid colon (axial image 126 of series 2). No adjacent pericolonic stranding. The appendix measures up to 10 mm and there is subtle periappendiceal fat heterogeneity. No bowel obstruction. No free air, free fluid or suspicious fluid collection. Fat containing umbilical hernia. Lymph nodes: No pathologic lymphadenopathy. Vascular structures: Mild atherosclerotic disease. No abdominal aortic aneurysm. Pelvic Organs: Prostate and bladder as imaged are unremarkable. Bones: No acute or suspicious osseous abnormality. Degenerative changes of the spine and pelvis. IMPRESSION: 1. Findings worrisome for early acute appendicitis. Surgical consultation regarding further management recommended. At a minimum, continued close clinical follow-up is recommended. 2. Circumferential thickening and apparent narrowing of the sigmoid colon, as indexed above. No adjacent inflammatory change to suggest diverticulitis. Underlying malignancy should be excluded. Endoscopy correlation is recommended if not recently performed. Discussed with Dr. Negron by telephone at 4:25 p.m. on 11/14/2023. Dictated by Eleno Marrero MD @ 11/14/2023 4:26:4
--- NOTE | 2023-11-15 18:51 | PC.NURSE ---
Pt up indepenedently in room. Rates pain 4-6/10, see MAR for medication administration with relief. Denies n/v, no BM on shift. Tolerates clear liquid diet.
[2023-11-15] MEDS: SODIUM CHLORIDE 0.9 % (FLUSH) 10 ML SYRINGE 5 ML IVF (19:37)
[2023-11-15] MEDS: ACETAMINOPHEN 325 MG TABLET 650 MG PO (20:35)
[2023-11-16] MEDS: PIPERACILLIN/TAZOBACTAM 3.375 GM in 0.9 % SODIUM CHLORIDE Mini-bag 100 ML IVPB ×2 (00:30→06:11)
[2023-11-16] MEDS: LACTATED RINGERS 1000 ML 1,000 ML 150 ML IV (00:32)
[2023-11-16] MEDS: 0.9 % SODIUM CHLORIDE 250 ml IV (00:37)
[2023-11-16 03:00] VITALS: BP 120/80; PULSE 76; RESP 18; TEMP 36.7; O2SAT 98
[2023-11-16] MEDS: ACETAMINOPHEN 325 MG TABLET 650 MG PO (04:17)
[2023-11-16 06:21] LABS: Basophils Absolute Auto 0.05 K/uL (0.00-0.30); Basophils Percent Auto 0.5 % (0.0-3.0); Eosinophils Percent Auto 3.7 % (0.0-7.0); Hematocrit 38.4 % (37.0-53.0); Hemoglobin* 12.7 gm/dL (13.5-17.5); Immature Granulocytes Abs Auto 0.04 K/uL (0.00-0.30); Immature Granulocytes Pct Auto 0.4 %; Lymphocytes Percent Auto 18.5 % (20-44); Mean Corpuscular HGB Conc 33 gm/dL (32-36); Mean Corpuscular Hemoglobin 29 pg (26-34); Mean Corpuscular Volume 86 fL (80-100); Monocytes Percent Auto 11.1 % (0.0-11.0); Neutrophils Absolute Auto 7.05 K/uL (1.7-7.0); Neutrophils Percent Auto 65.8 % (42.0-72.0); Platelet Count* 188 K/uL (140-440); RDW Coefficient of Variation % 13.2 % (11.5-15.5); Red Blood Count 4.45 m/uL (4.30-5.90); White Blood Count* 10.71 K/uL (4.50-11.00)
[2023-11-16 06:23] LABS: Slide Review Reflex No
--- NOTE | 2023-11-16 06:35 | PC.NURSE ---
End of shift note: Pt alert & oriented x 4 and able to make needs known. VSS, pt on RA throughout the shift and pt has been afebrile throughout the shift with no N/V. IV to L AC patent with LR running per order. Pt receiving IV antibiotic to treat appendicitis. 4-10 abdominal pain controlled with PRN Tylenol and rest. Pt declined PRN Oxycodone when offered stating, ?I don?t feel like the Oxycodone did anything for me yesterday?. He reported one loose liquid black stool last evening though flushed in toilet before RN could assess. Pt is noted to take MVI at home though he reports stool appeared ?black? last evening vs. ?dark brown? compared to the day before. [employer] Coordinator updated MD Maier and obtained an order to test for fecal occult blood. Pt had one additional loose stool this morning with color noted to be dark brown/green. Stool sample sent to lab with results pending. [employer] Coordinator updated pt of new order and also order to check CRP this morning per ?s request. Pt transfers/ambulates independently in room and hallway and is continent of bowel and bladder. Pt refused Lovenox though provided written education. He also refused TEDs and SCDs though pt ambulating in hallway several times per day. Pt currenly tolerating CL diet.
[2023-11-16 06:39] LABS: Fecal Occult Blood* Positive (Negative)
[2023-11-16 06:40] LABS: C Reactive Protein* 7.8 mg/dL (0.5-1.0)
[2023-11-16] MEDS: SODIUM CHLORIDE 0.9 % (FLUSH) 10 ML SYRINGE 5 ML IVF (06:53)
[2023-11-16 07:00] VITALS: BP 127/94; PULSE 69; RESP 18; TEMP 36.5; O2SAT 98
--- NOTE | 2023-11-16 07:50 | PM.GSPN ---
Subjective Subjective Date Seen: 11/16/23 Interval history: Patient is improving. His sore throat is improving and he barely feels abdominal pain. He tolerated clears yesterday. He had a couple of loose stools. One of the stools was guaiac positive. Exam Narrative: Exam Narrative: Abdomen is soft, not distended, not tender to palpation in the right lower quadrant. Throat: Bilateral tonsils still have white exudate overlying the tonsils but it is decreased from 2 days ago. Const: Vital Signs, click to edit/add: Vital Signs - 24 hr 11/15/23 08:20 11/15/23 08:20 11/15/23 11:00 Temperature 98.5 F 98.2 F Pulse Rate [Pulse Oximeter] 75 73 Respiratory Rate 20 20 18 Blood Pressure [Ri ght Arm] 131/84 115/79 Pulse Oximetry 96 96 96 Oxygen Delivery Me thod Room Air Room Air Room Air 11/15/23 15:00 11/15/23 15:00 11/15/23 19:31 Temperature 98.2 F 98.7 F Pulse Rate [Pulse Oximeter] 71 80 Respiratory Rate 16 16 16 Blood Pressure [Ri ght Arm] 122/79 130/82 Pulse Oximetry 96 96 98 Oxygen Delivery Me thod Room Air Room Air Room Air 11/15/23 23:00 11/15/23 23:00 11/15/23 23:00 Temperature 97.9 F Pulse Rate [Pulse Oximeter] 76 Respiratory Rate 18 18 Blood Pressure [Ri ght Arm] 110/74 Pulse Oximetry 98 98 98 Oxygen Delivery Me thod Room Air Room Air 11/15/23 23:00 11/16/23 03:00 Temperature 98.1 F Pulse Rate [Pulse Oximeter] 76 76 Respiratory Rate 18 18 Blood Pressure [Ri ght Arm] 120/80 Pulse Oximetry 98 Oxygen Delivery Me thod Room Air Progress Note:A&P Assessment and plan (1) Acute appendicitis: Status: Acute Assessment and Plan: 47-year-old male admitted to the hospital with acute appendicitis and pharyngitis treated with IV antibiotics. Patient's WBC is normal today. He is doing much better clinically. Will advance him to regular diet. Patient can discharge home today on p.o. antibiotics. I discussed with the patient and his that there is a risk of recurrence of acute appendicitis but we do not recommend performing laparoscopic appendectomy routinely. Patient can follow-up with his primary care doctor to make sure that he is still improving.
[2023-11-16] MEDS: OMEPRAZOLE 20 MG CAPSULE DR PO (08:22)
[2023-11-16] MEDS: IBUPROFEN 400 MG TABLET 800 MG PO (08:23)
--- NOTE | 2023-11-16 10:23 | PC.NURSE ---
Patient VSS. A & O x4. Ambulates independently. No pain reported this morning. Diet advanced to regular. Ate 100% of breakfast and tolerated well. Patient discharged at 1007 via wheelchair and picked up. IV removed and intact. Patient discharge instructions given via RN and signed. After patient discharged from hospital, RN entered patient's room to clean and noted that patient forgot their discharge packet on their table. RN called patient via phone and asked if they want to turn around and case picker discharge packet. Patient and denied and advised that they do not need the paperwork and know when patient's follow up appt is and medications to case picker from pharmacy.
--- NOTE | 2023-11-16 12:12 | P.DS_ITS ---
DS: Providers Provider Date Seen: 11/16/23 Date of admission: 11/14/23 22:48 Primary care physician: Clinton Torre MD Admitting Clinician: Roberta Maier MD Attending Physician on discharge: Kelsie Palacios MD Date of Discharge: 11/16/23 DS: Diagnosis Discharge Diagnosis (1) Acute appendicitis: Status: Acute Problem details: - Early with no concerning features or fecalith. Appreciate Dr. Palacios's recommendations. Will admit for IV Zosyn to treat appendicitis nonsurgically. There is a chance appendicitis will recur, and this was discussed with the patient and his . Clinically much improved after 2 days of Zosyn (2) Pharyngitis: Status: Acute Problem details: - Covid, influenza, mono, two strep tests today are negative - Exudative and enlarged tonsils, without asymmetry or trismus. I am concerned that this could put him at risk for a compromised airway perioperatively. On Zosyn in the hospital and discharged on Augmentin Feeling much better on discharge (3) Sigmoid thickening: Status: Acute Problem details: - will need outpatient diagnostic colonoscopy in 4-6 weeks (4) Heme positive stool: Status: Acute Problem details: Hemoglobin is stable. Stool is not melanotic or grossly bloody. Obtain EGD with colonoscopy in 4-6 weeks DS: Summary Hospital Course Hospital Course: Ramana Cook is a healthy 47 year old male who presented through the emergency department today for concerns of sore throat, abdominal pain, fever, malaise, and body aches. He was in his usual state of health and was staying with a friend up in [place] on a work trip. His friend likes to sleep with the windows open, and when Arthur woke up yesterday morning, he noted a sore throat, which he thought was due to the windows being open all night. He went to work and felt worse throughout the day. On his car trip home yesterday, he felt somewhat dizzy and ill. When he got home he took a nap. In the evening he continued to feel unwell and had some trouble sleeping overnight due to fever, malaise and sore throat. Her this morning when he woke up he had some epigastric or mid abdominal pain and diarrhea. He denies any nausea or vomiting. He went to urgent care this morning where he was tested for COVID, influenza, strep, and mono. These were negative. He felt very fatigued this afternoon and tried to lay down with his for a bit to get some rest. She then noted that he felt very hot and that his fever was climbing and he was complaining of right lower quadrant pain that was so severe he could barely move. His then brought him to the emergency department. In the emergency department he was diagnosed with early appendicitis without obvious complicating features. He was also diagnosed with pharyngitis. Testing for strep, mono, influenza, COVID all negative. Consultation with surgery and anesthesia led to recommendation of avoiding surgery currently and treating medically with antibiotics due to fairly severe tonsillitis. November 14: Sore throat is about the same as yesterday. He does not have any fever. Abdominal pain is about the same as yesterday. He is tolerating some clear liquids. Poor appetite. November 15: Sore throat is much better today. No fever. Tolerating a diet today. Abdominal pain is much better. Appetite is much better. Status at Discharge Functional status at discharge: independent ambulation Overall status at discharge: patient is progressing back to baseline Time Spent with Patient Time attestation: Total time spent providing and/or coordinating discharge services: Exam Narrative: Exam Narrative: He is alert and appears in no distress. Oropharynx with improved swelling, erythema, exudate around both tonsils. Still left slightly greater than right. Neck is supple without significant adenopathy. Abdomen: Bowel sounds active. Abdomen is soft without tenderness or mass. Const: Vital Signs, click to edit/add: Vital Signs - 24 hr 11/15/23 15:00 11/15/23 15:00 11/15/23 19:31 Temperature 98.2 F 98.7 F Pulse Rate [Pulse Oximeter] 71 80 Respiratory Rate 16 16 16 Blood Pressure [Ri ght Arm] 122/79 130/82 Pulse Oximetry 96 96 98 Oxygen Delivery Me thod Room Air Room Air Room Air 11/15/23 23:00 11/15/23 23:00 11/15/23 23:00 Temperature 97.9 F Pulse Rate [Pulse Oximeter] 76 Respiratory Rate 18 18 Blood Pressure [Ri ght Arm] 110/74 Pulse Oximetry 98 98 98 Oxygen Delivery Me thod Room Air Room Air 11/15/23 23:00 11/16/23 03:00 11/16/23 07:00 Temperature 98.1 F 97.7 F Pulse Rate [Pulse Oximeter] 76 76 69 Respiratory Rate 18 18 18 Blood Pressure [Ri ght Arm] 120/80 127/94 H Pulse Oximetry 98 98 Oxygen Delivery Me thod Room Air Room Air 11/16/23 07:00 11/16/23 07:00 Temperature Pulse Rate [Pulse Oximeter] 69 Respiratory Rate 18 18 Blood Pressure [Ri ght Arm] Pulse Oximetry 98 Oxygen Delivery Me thod Room Air Documenting provider has reviewed patient's vital signs: yes DS: Data Data Completed and Pending Labs on day of discharge: Labs from last 24 hours 11/16/23 11/16/23 06:25 05:56 WBC 10.71 RBC 4.45 Hgb 12.7 L Hct 38.4 MCV 86 MCH 29 MCHC 33 RDW Coeff of Caryn 13.2 Plt Count 188 Neut % (Auto) 65.8 Lymph % (Auto) 18.5 L Guadalupe % (Auto) 11.1 H Eos % (Auto) 3.7 Baso % (Auto) 0.5 Neut # (Auto) 7.05 H Lymph # (Auto) 2.00 Guadalupe # (Auto) 1.20 H Eos # (Auto) 0.40 Baso # (Auto) 0.05 Abs Immat Gran (auto) 0.04 Imm/Tot Granulo (auto) 0.4 C-Reactive Protein 7.8 H Stool Occult Blood Positive Imaging CT scan - abdomen: Radiologist's impression: INDICATION: Fever. Right lower quadrant guarding. TECHNIQUE: CT abdomen and pelvis acquired with 147 cc of Isovue 370 IV contrast. COMPARISON: None. FINDINGS: Lower chest: Unremarkable. Liver: Low densities measuring up to 2.3 cm in the left lobe most consistent with incidental cysts. The liver is otherwise unremarkable. Spleen: Unremarkable. Pancreas: Unremarkable. Gallbladder and bile ducts: No calcified stones or biliary ductal dilatation. Kidneys: Unremarkable. Adrenal glands: Unremarkable. GI tract: Colonic diverticulosis with circumferential thickening and apparent narrowing of the sigmoid colon (axial image 126 of series 2). No adjacent pericolonic stranding. The appendix measures up to 10 mm and there is subtle periappendiceal fat heterogeneity. No bowel obstruction. No free air, free fluid or suspicious fluid collection. Fat containing umbilical hernia. Lymph nodes: No pathologic lymphadenopathy. Vascular structures: Mild atherosclerotic disease. No abdominal aortic aneurysm. Pelvic Organs: Prostate and bladder as imaged are unremarkable. Bones: No acute or suspicious osseous abnormality. Degenerative changes of the spine and pelvis. IMPRESSION: 1. Findings worrisome for early acute appendicitis. Surgical consultation regarding further management recommended. At a minimum, continued close clinical follow-up is recommended. 2. Circumferential thickening and apparent narrowing of the sigmoid colon, as indexed above. No adjacent inflammatory change to suggest diverticulitis. Underlying malignancy should be excluded. Endoscopy correlation is recommended if not recently performed. Discussed with Dr. Negron by telephone at 4:25 p.m. on 11/14/2023. Dictated by Eleno Marrero MD @ 11/14/2023 4:26:42 PM Please note that all CT scans at this facility use dose modulation, iterative reconstruction, and/or weight-based dosing when appropriate to reduce radiation dose to as low as reasonably achievable. Dictated by: Eleno Marrero MD @ 11/14/2023 16:29:06 Discharge Plan Discharge Disposition: Home, Self-Care Date of Admission: 11/14/23 22:48 Attending Provider on Discharge: Kelsie Palacios Primary Care Provider: Clinton Torre Condition: Improved Anticipated Discharge Date/Time: 11/16/23 12:00 Discharge Medications: New omeprazole 20 mg capsule,delayed release(DR/EC) 20 mg PO DAILY Qty: 30 1RF amoxicillin-pot clavulanate 875-125 mg tablet 1 tab PO BID Qty: 14 0RF No Action multivitamin [Daily Multi-Vitamin] Tablet 1 tab PO QAM Discharge Orders: Discharge Order (Routine); Ordered 11/16/23 Ordered By: Kelsie Palacios Patient Education: Omeprazole (By mouth), Amoxicillin/Clavulanate Potassium (By mouth), Appendicitis (GEN) Additional Instructions: Continue Augmentin antibiotic as prescribed. Get re-evaluation if sore throat or abdominal pain get worse. See your doctor about arranging for upper endoscopy and colonoscopy in 4-6 weeks. Activity Level: No Restrictions Discharge Diet: Regular Follow Up Appointments: Clinton Torre MD [Primary Care Provider] - 11/23/23 12:45 pm ([facility] for follow-up in one week. Recheck CBC in one week.) Forms: [employer] Info Instructions
== END 2023-11-16 10:07 | disposition home or self-care (01) | DRG 254 ==
LOC: ED 17:08 → OR 22:32 → MEDSURG 22:32 → OR 22:58 → MEDSURG 22:58
PROVIDERS: Admitting Provider Family Medicine; Emergency Provider Family Medicine; PCP Family Medicine; Visit Provider Surgery
DX: K35.80 Unspecified acute appendicitis (principal); J03.90 Acute tonsillitis, unspecified; R19.5 Other fecal abnormalities; K63.89 Other specified diseases of intestine; K57.30 Diverticulosis of large intestine without perforation or abscess without bleeding; K42.9 Umbilical hernia without obstruction or gangrene; Z82.49 Family history of ischemic heart disease and other diseases of the circulatory system; Z87.891 Personal history of nicotine dependence
CPT/HCPCS: 36415; 74177; 80048; 80053; 81001; 81003; 82270; 83605; 83690; 85025; 86140; 87651; 94761; 99284; 99285; A9270; J1170; J2405; J2543; J7030; J7050; J7120; Q9967

== ENCOUNTER 2023-12-06 18:40 | Day surgery (SDC) | payer BC, SELFPAY ==
[2023-12-06 18:51] VITALS: BP 155/82; PULSE 78; RESP 18; TEMP 36.5; O2SAT 98; BMI 43.5
--- NOTE | 2023-12-06 19:07 | CRLHL7_ITS ---
For Patients: As a result of the Century Cures Act, medical imaging exams and procedure reports are released immediately into your electronic medical record. You may view this report before your referring provider. If you have questions, please contact your health care provider. INDICATION: Right lower quadrant pain. TECHNIQUE: CT abdomen and pelvis acquired with 148 cc Isovue 370 IV contrast. COMPARISON: November 14, 2023. FINDINGS: Lower chest: Scattered atelectasis. Liver: Hepatic steatosis. No suspicious masses. Few scattered hepatic cysts. Gallbladder and bile ducts: Unremarkable. No stones or inflammation. No biliary dilatation. Pancreas: Fatty atrophy. No mass or inflammation. Spleen: Unremarkable. Normal in size. No masses. Adrenal glands: Unremarkable. No nodules. Kidneys: Unremarkable. No suspicious masses, stones, or hydronephrosis. GI tract: Colonic diverticulosis without diverticulitis. No bowel obstruction. Mildly enlarged appendix with trace hyperemia/inflammatory stranding. Vasculature: Abdominal aorta is normal in caliber. Mesenteric arteries are patent. Lymph nodes: No lymphadenopathy. Peritoneum/Abdominal Wall: Tiny right and small left fat containing inguinal hernias. Small fat containing umbilical hernia. No sign of mass or infiltration. No free air or significant free fluid. Pelvis: Unremarkable. Bones: Unremarkable for age. IMPRESSION: Mildly enlarged appendix with trace hyperemia/inflammatory stranding, similar to prior study, but concerning for early appendicitis in the appropriate clinical setting. Recommend correlation with localized physical examination, clinical history, and laboratory values. No drainable fluid collections. Additional chronic findings as above. Please note that all CT scans at this facility use dose modulation, iterative reconstruction, and/or weight-based dosing when appropriate to reduce radiation dose to as low as reasonably achievable. Dictated by Jung Horton MD @ 12/06/2023 8:15:49 PM (Electronically Signed)
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
[2023-12-06 19:27] LABS: Basophils Percent Auto 0.3 % (0.0-3.0); Hematocrit 43.7 % (37.0-53.0); Hemoglobin* 14.5 gm/dL (13.5-17.5); Immature Granulocytes Pct Auto 0.2 %; Lymphocytes Percent Auto 13.2 % (20-44); Mean Corpuscular HGB Conc 33 gm/dL (32-36); Mean Corpuscular Hemoglobin 29 pg (26-34); Mean Corpuscular Volume 87 fL (80-100); Monocytes Percent Auto 6.7 % (0.0-11.0); Neutrophils Percent Auto 78.6 % (42.0-72.0); Platelet Count* 292 K/uL (140-440); RDW Coefficient of Variation % 13.1 % (11.5-15.5); Red Blood Count 5.05 m/uL (4.30-5.90); White Blood Count* 17.48 K/uL (4.50-11.00)
[2023-12-06 19:29] LABS: Slide Review Reflex No
[2023-12-06 19:42] LABS: Albumin* 4.5 g/dL (3.3-5.0); Chloride* 105 mmol/L (96-114); Sodium* 138 mmol/L (135-149)
[2023-12-06 19:43] LABS: Potassium* 4.2 mmol/L (3.6-5.1)
[2023-12-06 19:44] LABS: Appearance Urine Clear (Clear); Bilirubin Urine Negative (Negative); Blood Urine Negative (Negative); Color Urine Yellow (Yellow); Glucose Urine Negative (Negative); Ketones Urine Negative (Negative); Leukocyte Esterase Urine Negative (Negative); Nitrite Urine Negative (Negative); Protein Urine Negative (Negative); Urobilinogen Urine 0.2 (0.2-1.0); pH Urine 5.5 (5.0-8.5)
[2023-12-06 19:45] LABS: Alkaline Phosphatase* 93 U/L (40-150); Anion Gap 8 mEq/L (7-15); Aspartate Amino Transferase* 40 U/L (12-35); Bilirubin Total* 0.8 mg/dL (0.1-1.5); Blood Urea Nitrogen* 11 mg/dL (5-24); Carbon Dioxide* 25 mmol/L (20-32); Est. Creatinine Clearance* 93.28; Estimated Glomerular Filt Rate 93 ml/min; Glucose* 88 mg/dL (60-115); Total Protein* 7.3 g/dL (6.0-8.3)
[2023-12-06 19:46] LABS: Alanine Aminotransferase* 61 U/L (4-50); Calcium* 8.8 mg/dL (8.4-10.6)
[2023-12-06 19:54] LABS: RBC Urine 0-2 (0-2); WBC Urine 0-2 (0-5)
[2023-12-06] MEDS: LACTATED RINGERS 1000 ML 1,000 ML IV (20:47)
[2023-12-06] MEDS: ONDANSETRON 2 MG/ML inj 4 MG IVP (20:47)
[2023-12-06] MEDS: PIPERACILLIN/TAZOBACTAM 3.375 GM in 0.9 % SODIUM CHLORIDE Mini-bag 100 ML IVPB (20:47)
--- OUTSIDE RECORDS SUMMARY | 2023-12-06 22:41 | XMS_ITS | Encounter Summary ---
Author Organization [facility] Address [address] [place] [address] Care Team Providers Care Head Esthetician Name Role Phone Binu Torre MD Primary Care Provider [phone] Encounter Details Date Type Department Care Team [...] on filedocumented in this encounter Care Teams Head Esthetician Relationship Specialty Start Date End Date Binu Torre MD [facility] [address] [place] [id number] PCP - General Family Practice 11/07/16 documented as of this encounter
--- OUTSIDE RECORDS SUMMARY | 2023-12-06 22:41 | XMS_ITS | Encounter Summary ---
[facility] Address [address] [place] [address] Care Team Providers Care Candy Wrapping Machine Operator Name Role Phone Binu Torre MD Primary Care Provider [phone] Encounter Details Date Type Department Care Team (Late st Contact Info) Description 05/23/2016 [facility] [address] [place] [address] Leo Lujan, DO [address] [place] [address] ARTHROSCOPY Social History Tobacco Use Types Packs/Day [...] on filedocumented in this encounter Care Teams Candy Wrapping Machine Operator Relationship Specialty Start Date End Date Binu Torre MD [facility] [address] [place] [address] PCP - General Family Practice 11/07/16 documented as of this encounter
--- OUTSIDE RECORDS SUMMARY | 2023-12-06 22:41 | XMS_ITS | Encounter Summary ---
Author Organization [facility] Address [address] [place] [address] Care Team Providers Care Dope Sprayer Name Role Phone Binu Torre MD Primary Care Provider [phone] Encounter Details Date Type Department Care Team (Late st Contact Info) Description 10/03/2015 [facility] [address] [facility] [place] [address] Leo Lujan, DO [address] [place] [address] CONFIRMATION OF ORDER Social History Tobacco Use [...] on filedocumented in this encounter Care Teams Dope Sprayer Relationship Specialty Start Date End Date Binu Torre MD [facility] [address] [place] [address] PCP - General Family Practice 11/07/16 documented as of this encounter
--- OUTSIDE RECORDS SUMMARY | 2023-12-06 22:41 | XMS_ITS | Encounter Summary ---
Author Organization [facility] Address [address] [place] [address] Care Team Providers Care Clipper Automatic Name Role Phone Biun Torre MD Primary Care Provider [phone] Encounter Details Date Type Department Care Team [...] on filedocumented in this encounter Care Teams Clipper Automatic Relationship Specialty Start Date End Date Binu Torre MD [facility] [address] [place] [address] PCP - General Family Practice 11/07/16 documented as of this encounter
--- OUTSIDE RECORDS SUMMARY | 2023-12-06 22:41 | XMS_ITS | Encounter Summary ---
Author Organization [facility] Address [address] [place] [address] Care Team Providers Care Charge Accounts Audit Clerk Name Role Phone Binu Torre MD Primary Care Provider [phone] Encounter Details Date Type Department Care Team [...] on filedocumented in this encounter Care Teams Charge Accounts Audit Clerk Relationship Specialty Start Date End Date Binu Torre MD [facility] [address] [place] [address] PCP - General Family Practice 11/07/16 documented as of this encounter
--- OUTSIDE RECORDS SUMMARY | 2023-12-06 22:41 | XMS_ITS | Encounter Summary ---
Author Organization [facility] Address [address] [place] [address] Care Team Providers Care Metal Furrer Name Role Phone Binu Torre MD Primary Care Provider [phone] Encounter Details Date Type Department Care Team (Late st Contact Info) Description 10/16/2016 Correspondence Orthopedics at [facility] Orthopedic [place] [address] [place] [address] Leo Lujan, DO [address] [place] [address] [id number] DISABILITY LETTER Social History Tobacco Use Types [...] filedocumented in this encounter Care Teams Metal Furrer Relationship Specialty Start Date End Date Binu Torre MD [facility] [address] [place] [address] PCP - General Family Practice 11/07/16 documented as of this encounter
--- OUTSIDE RECORDS SUMMARY | 2023-12-06 22:41 | XMS_ITS | Encounter Summary ---
Author Organization [facility] Address [address] [place] [address] Care Team Providers Care Dough Maker Name Role Phone Binu Torre MD Primary Care Provider Encounter Details Date Type Department Care Team (Late st Contact Info) Description 11/27/2015 Correspondence [facility] [address] [facility] [place] [address] Leo Lujan, DO [address] [place] [address] MEDICAL STATUS Social History Tobacco Use Types [...] filedocumented in this encounter Care Teams Dough Maker Relationship Specialty Start Date End Date Binu Torre MD [facility] [address] [place] [address] PCP - General Family Practice 11/07/16 documented as of this encounter
--- OUTSIDE RECORDS SUMMARY | 2023-12-06 22:41 | XMS_ITS | Encounter Summary ---
Author Organization [facility] Address [address] [place] [address] Care Team Providers Care Computer Systems Analyst Name Role Phone Binu Torre MD Primary Care Provider Encounter Details Date Type Department Care Team (Late st Contact Info) Description 07/02/2016 Correspondence [facility] 435 [facility] [place] [address] Leo Lujan, DO [address] [place] [address] CONFIRMATION OF ORDER Social History Tobacco Use [...] on filedocumented in this encounter Care Teams Computer Systems Analyst Relationship Specialty Start Date End Date Binu Torre MD [facility] [address] [place] [address] PCP - General Family Practice 11/07/16 documented as of this encounter
--- OUTSIDE RECORDS SUMMARY | 2023-12-06 22:41 | XMS_ITS | Clinical Summary ---
Author Organization [employer] [facility] Address [place], [place] [address] Care Team Providers Care Security Systems Administrator Name Role Phone Leo Lujan DO Primary Care Provider Allergies No known active allergies Medications Medication Sig Dispensed Refills Start Date End Date Status acetaminophen (TYLENOL EXTRA STRGTH) 500 mg tablet Take 1,000 mg by mouth. 10/10/2015 Active Active Problems Problem Noted Date Diagnosed Date Left knee pain 12/29/2016 s/p left knee open patellar tendon and extensor mechanism repair DOS: 09/08/2015 [facility] 12/29/2016 s/p placement of left knee c losed reduction and placement of left knee spanning external fixator DOS: 09/09/2016 [facility] 12/29/2016 s/p removal of spanning exte rnal fixator of the left knee DOS: 10/10/2015 [facility] 12/29/2016 s/p left knee PCL reconstruc tion with allograft, ACL reconstruction with hamstring allograft, posterior lateral corner reconsruction, peroneal nerve neurolysis, chondroplasty DOS: 11/14/2015 12/29/2016 s/p left knee partial latera l menisectomy DOS: 05/23/2016 [facility] 12/29/2016 Instability of left knee joint 12/29/2016 [...] 45-75 01/01/2020 COVID-19 vaccine series (2022- season) 2023 Influenza for age 9-49 11/29/2023 Pneumococcal series for age 6-64 Aged Out No longer eligible based on patient's age to complete this topic Care Teams Security Systems Administrator Relationship Specialty Start Date End Date Leo Lujan DO PCP - General Surgery - Orthopedics 12/16/16
--- OUTSIDE RECORDS SUMMARY | 2023-12-06 22:41 | XMS_ITS | Encounter Summary ---
Author Organization [facility] Address [address] [place] [address] Care Team Providers Care Audit Practice Intern Name Role Phone Binu Torre MD Primary Care Provider [phone] Encounter Details Date Type Department Care Team [...] on filedocumented in this encounter Care Teams Audit Practice Intern Relationship Specialty Start Date End Date Binu Torre MD [facility] [address] [place] [address] PCP - General Family Practice 11/07/16 documented as of this encounter
--- OUTSIDE RECORDS SUMMARY | 2023-12-06 22:41 | XMS_ITS | Encounter Summary ---
Author Organization [facility] Address [address] [place] [address] Care Team Providers Care Asw Specialist Name Role Phone Binu Torre MD Primary Care Provider [phone] Encounter Details Date Type Department Care Team ([facility] st Contact Info) Description 11/07/2016 Correspondence [facility] [address] [place] [address] Monie Ortiz MD [address] [place] [address] [id number] LEFT ANKLE ARTHROSCOPY Social History Tobacco Use [...] on filedocumented in this encounter Care Teams Asw Specialist Relationship Specialty Start Date End Date Binu Torre MD [facility] [address] [place] [address] PCP - General Family Practice 11/07/16 documented as of this encounter
--- OUTSIDE RECORDS SUMMARY | 2023-12-06 22:41 | XMS_ITS | Encounter Summary ---
Author Organization [facility] Address [address] [place] [address] Care Team Providers Care Director Of Sales And Marketing Name Role Phone Binu Torre MD Primary Care Provider [phone] Encounter Details Date Type Department Care Team [...] on filedocumented in this encounter Care Teams Director Of Sales And Marketing Relationship Specialty Start Date End Date Binu Torre MD [facility] [address] [place] [address] PCP - General Family Practice 11/07/16 documented as of this encounter
--- OUTSIDE RECORDS SUMMARY | 2023-12-06 22:41 | XMS_ITS | Encounter Summary ---
Author Organization [facility] Address [address] [place] [address] Care Team Providers Care Billing Control Clerk Name Role Phone Binu Torre MD Primary Care Provider [phone] Encounter Details Date Type Department Care Team [...] filedocumented in this encounter Care Teams Billing Control Clerk Relationship Specialty Start Date End Date Binu Torre MD [facility] [address] [place] [address] PCP - General Family Practice 11/07/16 documented as of this encounter
--- OUTSIDE RECORDS SUMMARY | 2023-12-06 22:41 | XMS_ITS | Encounter Summary ---
Author Organization [facility] Address [address] [place] [address] Care Team Providers Care Agriculture Intern Name Role Phone Binu Torre MD Primary Care Provider [phone] Encounter Details Date Type Department Care Team (Late st Contact Info) Description 04/02/2016 Correspondence [facility] Radiology [address] [place] [address] Radiology, Provider MRI SAFETY SHEET AND COMPATIBILITY [...] on filedocumented in this encounter Care Teams Agriculture Intern Relationship Specialty Start Date End Date Binu Torre MD [facility] [address] [place] [address] PCP - General Family Practice 11/07/16 documented as of this encounter
--- OUTSIDE RECORDS SUMMARY | 2023-12-06 22:41 | XMS_ITS | Encounter Summary ---
Author Organization [facility] Address [address] [place] [address] Care Team Providers Care Pool Cleaner Name Role Phone Binu Torre MD Primary Care Provider [phone] Encounter Details Date Type Department Care Team (Late st Contact Info) Description 05/10/2016 Correspondence External to External, [place] [address] HISTORY AND PHYSICAL Social History Tobacco Use [...] on filedocumented in this encounter Care Teams Pool Cleaner Relationship Specialty Start Date End Date Binu Torre MD [facility] [address] [place] [address] PCP - General Family Practice 11/07/16 documented as of this encounter
--- OUTSIDE RECORDS SUMMARY | 2023-12-06 22:41 | XMS_ITS | Encounter Summary ---
Author Organization [facility] Address [address] [place] [address] Care Team Providers Care Movable Bulkhead Installer Name Role Phone Binu Torre MD Primary Care Provider [phone] Encounter Details Date Type Department Care Team [...] on filedocumented in this encounter Care Teams Movable Bulkhead Installer Relationship Specialty Start Date End Date Binu Torre MD [facility] [address] [place] [address] PCP - General Family Practice 11/07/16 documented as of this encounter
--- OUTSIDE RECORDS SUMMARY | 2023-12-06 22:41 | XMS_ITS | Encounter Summary ---
Author Organization [facility] Address [address] [place] [address] Care Team Providers Care Technical Operations Vice President Name Role Phone Binu Torre MD Primary Care Provider [phone] Encounter Details Date Type Department Care Team (Latest Contact Info) Description 05/06/2016 Consent for Procedure/Treatme nt [facility]ty [facility] [address] [place] [address] Monie Ortiz MD [address] [place] [address] RH INFORMED CONSENT Social History Tobacco Use [...] on filedocumented in this encounter Care Teams Technical Operations Vice President Relationship Specialty Start Date End Date Binu Torre MD [facility] [address] [place] [address] PCP - General Family Practice 11/07/16 documented as of this encounter
--- OUTSIDE RECORDS SUMMARY | 2023-12-06 22:41 | XMS_ITS | Encounter Summary ---
Author Organization Counts include 234 beds at the [facility] Address [address] [place] [address] Care Team Providers Care Poultry Grader Name Role Phone Binu Torre MD Primary Care Provider [phone] Encounter Details Date Type Department Care Team (Late st Contact Info) Description 11/01/2015 Correspondence External to External, [place] [address] PRIOR AUTHORIZATION Social History Tobacco Use Types [...] on filedocumented in this encounter Care Teams Poultry Grader Relationship Specialty Start Date End Date Binu Torre MD [facility] [address] [place] [address] PCP - General Family Practice 11/07/16 documented as of this encounter
--- OUTSIDE RECORDS SUMMARY | 2023-12-06 22:41 | XMS_ITS | Encounter Summary ---
Author Organization [facility] Address [address] [place] [address] Care Team Providers Care Art Objects Salesperson Name Role Phone Binu Torre MD Primary Care Provider [phone] Encounter Details Date Type Department Care Team (Late st Contact Info) Description 11/14/2015 Correspondence Specialty Center [facility] 435 [facility] [place] [address] Leo Lujan, DO [address] [place] [address] LEFT KNEE ARTHROSCOPY Social History Tobacco Use [...] on filedocumented in this encounter Care Teams Art Objects Salesperson Relationship Specialty Start Date End Date Binu Torre MD [facility] [address] [place] [address] PCP - General Family Practice 11/07/16 documented as of this encounter
--- OUTSIDE RECORDS SUMMARY | 2023-12-06 22:41 | XMS_ITS | Encounter Summary ---
Author Organization [facility] Address [address] [place] [address] Care Team Providers Care Nurse Tech Name Role Phone Binu Torre MD Primary Care Provider [phone] Encounter Details Date Type Department Care Team [...] on filedocumented in this encounter Care Teams Nurse Tech Relationship Specialty Start Date End Date Binu Torre MD [facility] [address] [place] [address] PCP - General Family Practice 11/07/16 documented as of this encounter
--- OUTSIDE RECORDS SUMMARY | 2023-12-06 22:41 | XMS_ITS | Clinical Summary ---
Author Organization [facility] Address [address] [address] Care Team Providers Care Glazing Machine Operator Name Role Phone Binu Torre MD Primary Care Provider [phone] Source Comments You are receiving this document as you are listed as the primary care provider,follow-up provider, or the patient has been referred to you for consultation.This is in compliance with the Medicare and[facility] EHR Incentive Program,which states Providers who transition their patient to another setting of careor provider of care or refers their patient to another provider of care shouldprovide summary care record for each transition of care or referral. [place] Allergies No known active allergies Medications Medication [...] 1993 Cholesterol 2009 COVID-19 Vaccine ( season) 2023 Influenza (#1) 2023 12/08/2013, 12/09/2011 Zoster/Shingles (1 [...] this topic Medical Devices Implanted Type Area Hearing Aid Repair Technician Device Identifier Shelf Expiration Date Model / Serial / Lot Bone Tendon Achilles 19.5-38 - [id number] Implanted:Qty: 1 on 11/14/2015 by Leo Lujan DO at [facility] BIOLOGIC Left: KNEE MTF 03/30/2019 [id number] / [id number] / Semitendinosus Tendon Implanted:Qty: 1 on 11/14/2015 by Leo Lujan DO at [facility] BIOLOGIC Left: KNEE Musculoskeletal Transplant Fnd 09/26/2019 [id number] / [id number] / Bone Tib Tendon Post - [id number] Implanted:Qty: 1 on 11/14/2015 at [facility] BIOLOGIC Left: KNEE Musculoskeletal Transplant Fnd 10/07/2018 [id number] / [id number] / NA Simone Rmr [address] 2.5x650 - [id number] Implanted:Qty: 1 on 09/08/2015 by Monie Ortiz MD at [facility] DEVICE Left: TIBIA MIDSHAFT J&J DePuy Synthes - Trauma 06/27/2024 351.709S / / [id number] Nail Tib Ti [address] 9.0x330 - [id number] Implanted:Qty: 1 on 09/08/2015 by Monie Ortiz MD at [facility] DEVICE Left: TIBIA MIDSHAFT DePuy Synthes - Trauma 03/29/2024 04.004.3 46S / / [id number] Endcap Ti T40 Ex Gry 10mm - [id number] Implanted:Qty: 1 on 09/08/2015 by Monie Ortiz MD at [facility] DEVICE Left: TIBIA PROXIMAL DePuy Synthes - Trauma 04.004.0 10 / / Sut [place] Superquick - [id number] Implanted:Qty: 1 on 09/08/2015 by Monie Ortiz MD at [facility] DEVICE Left: TIBIA PROXIMAL DePuy Synthes - Trauma 01/27/2018 [id number] / / [id number] Scr Tyler 4.0x40 Lng-Thrd - [id number] Implanted:Qty: 2 on 09/08/2015 by Monie Ortiz MD at [facility] DEVICE Left: ANKLE J 207.740 / / Scr Lk Ti T25 4.0x30 - [id number] Implanted:Qty: 1 on 09/08/2015 at [facility] DEVICE Left: TIBIA MIDSHAFT J&J DePuy Synthes - Trauma 04.005.4 20 / / Scr Lk Ti T25 4.0x38 - [id number] Implanted:Qty: 1 on 09/08/2015 at [facility] DEVICE Left: TIBIA MIDSHAFT J&J DePuy Synthes - Trauma 04.005.4 28 / / Scr Lk Ti T25 4.0x42 - [id number] Implanted:Qty: 1 on 09/08/2015 at [facility] DEVICE Left: TIBIA PROXIMAL J 04.005.4 32 / / Pin Edgar Half Sfdr Ss 5x150 - [id number] Implanted:Qty: 2 on 09/10/2015 by Monie Ortiz MD at [facility] DEVICE Left: LEG [employer] 5018-5-1 50 / / Simone Carbon Conn 90c913 - [id number] Implanted:Qty: 1 on 09/10/2015 at [facility] DEVICE Left: LEG [employer] 4922-8-4 50 / / Pin Edgar Half Sfdr Ss 5x180 - [id number] Implanted:Qty: 2 on 09/10/2015 by Monie Ortiz MD at [facility] DEVICE Left: LEG [employer] 5018-6-1 80 / / Tightrope Acl Rt W/Dbly Sut - [id number] Implanted:Qty: 1 on 11/14/2015 by Leo Lujan DO at [facility] DEVICE Left: KNEE [employer] 04/29/2020 AR-1588R T-J / / [id number] Tightrope Acl Abs - [id number] Implanted:Qty: 1 on 11/14/2015 by Leo Lujan DO at [facility] DEVICE Left: KNEE [employer] 07/27/2020 AR-1588T N / / [id number] Tightrope Acl Pcl - [id number] Implanted:Qty: 1 on 11/14/2015 by Leo Lujan DO at [facility] DEVICE Left: KNEE [employer] 02/27/2020 AR-1588T P / / [id number] Scr Biocompos Interfr 6.0x23 - [id number] Implanted:Qty: 1 on 11/14/2015 by Leo Lujan DO at [facility] DEVICE Left: KNEE [employer] 05/27/2017 AR-1360C / / [id number] Scr Biotendesis Swivelock - [id number] Implanted:Qty: 1 on 11/14/2015 by Leo Lujan DO at [facility] DEVICE Left: KNEE [employer] 12/27/2016 AR-1662B C / / [id number] Tightrope Acl Rt W/Dbly Sut - [id number] Implanted:Qty: 1 on 11/14/2015 by Leo Lujan DO at [facility] DEVICE Left: KNEE [employer] 05/27/2020 AR-1588R T-J / / [id number] Tightrope Acl 8x12 - [id number] Implanted:Qty: 1 on 11/14/2015 by Leo Lujan DO at [facility] DEVICE Left: KNEE [employer] 06/27/2020 AR-1588T B / / [id number] Description:BUTTON Scr Rnd Delta Biocompo 11.0x28 - [id number] Implanted:Qty: 1 on 11/14/2015 by Leo Lujan DO at [facility] DEVICE Left: KNEE [employer] Inc 12/27/2016 AR-5028C -11 / / [id number] [place] Bio Swivel Lk 4.75x19.1 - [id number] Implanted:Qty: 1 on 11/14/2015 by Leo Lujan DO at [facility] DEVICE Left: KNEE [employer] 06/27/2017 AR-2324B CCT / / [id number] Scr Rnd Delta Biocompo 8.0x28 - [id number] Implanted:Qty: 1 on 11/14/2015 by Leo Lujan DO at [facility] DEVICE Left: KNEE [employer] 06/27/2017 AR-5028C -08 / / [id number] Tyler Button Passport 8x60 - [id number] Implanted:Qty: 1 on 11/14/2015 at [facility] DEVICE Ar[employer] Inc 04/29/2020 AR-6592 - 08-60 / / [id number] Advance Directives * Full Code (Latest Code [...] 3:19 PM 09/08/2015 10:55 PM Care Teams Glazing Machine Operator Relationship Specialty Start Date End Date Binu Torre MD [facility] [address] [place] [address] PCP - General Family Practice 11/07/16
--- OUTSIDE RECORDS SUMMARY | 2023-12-06 22:41 | XMS_ITS | Encounter Summary ---
Author Organization [facility] Address [address] [place] [address] Care Team Providers Care Certified Credit Counselor Name Role Phone Binu Torre MD Primary Care Provider Encounter Details Date Type Department Care Team (Late st Contact Info) Description 10/16/2016 Correspondence Orthopedics at [facility] Orthopedic [facility] [address] [place] [address] Leo Lujan, DO [address] [place] [address] STATEMENT OF SICKNESS Social History Tobacco Use [...] filedocumented in this encounter Care Teams Certified Credit Counselor Relationship Specialty Start Date End Date Binu Torre MD [facility] [address] [place] [address] PCP - General Family Practice 11/07/16 documented as of this encounter
--- OUTSIDE RECORDS SUMMARY | 2023-12-06 22:42 | XMS_ITS | Encounter Summary ---
Author Organization [facility] Address [address] [place] [address] Care Team Providers Care Ginger Farmer Name Role Phone Binu Torre MD Primary Care Provider [phone] Encounter Details Date Type Department Care Team (Late st Contact Info) Description 09/08/2015 Correspondence [facility] Radiology [address] [place] [address] Radiology, Provider MRI SAFETY SHEET AND COMPATIBILITY [...] on filedocumented in this encounter Care Teams Ginger Farmer Relationship Specialty Start Date End Date Binu Torre MD [facility] [address] [place] [address] PCP - General Family Practice 11/07/16 documented as of this encounter
--- OUTSIDE RECORDS SUMMARY | 2023-12-06 22:42 | XMS_ITS | Encounter Summary ---
Author Organization [facility] Address [address] [place] [address] Care Team Providers Care Vegetable I Farmworker Name Role Phone Binu Torre MD Primary Care Provider [phone] Encounter Details Date Type Department Care Team [...] on filedocumented in this encounter Care Teams Vegetable I Farmworker Relationship Specialty Start Date End Date Binu Torre MD [facility] [address] [place] [address] PCP - General Family Practice 11/07/16 documented as of this encounter
--- OUTSIDE RECORDS SUMMARY | 2023-12-06 22:42 | XMS_ITS | Encounter Summary ---
Author Organization [facility] Address [address] [place] [address] Care Team Providers Care Recovery Assistant Name Role Phone Binu Torre MD Primary Care Provider [phone] Encounter Details Date Type Department Care Team (Late st Contact Info) Description 09/08/2015 Scanned History External to External, [place] [address] EMS RUN SHEET Social History Tobacco Use [...] on filedocumented in this encounter Care Teams Recovery Assistant Relationship Specialty Start Date End Date Binu Torre MD [facility] [address] [place] [address] PCP - General Family Practice 11/07/16 documented as of this encounter
[2023-12-06 22:45] VITALS: BP 128/81; PULSE 66; RESP 18; TEMP 36.6; O2SAT 99
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
[2023-12-07] VITALS (15 sets, daily range): BP systolic 115–150; BP diastolic 69–93; PULSE 62–100; RESP 14–19; TEMP 36.1–36.6; O2SAT 91–96
[2023-12-07] MEDS: PIPERACILLIN/TAZOBACTAM 4.5 GM in 0.9 % SODIUM CHLORIDE Mini-bag 100 ML IVPB ×2 (00:19→09:25)
[2023-12-07] MEDS: 0.9 % SODIUM CHLORIDE 1000 ml 1,000 ML 125 ML IV ×2 (01:07→09:25)
[2023-12-07 06:27] LABS: Lactate* 1.8 mmol/L (0.5-1.9)
[2023-12-07 06:35] LABS: Basophils Absolute Auto 0.04 K/uL (0.00-0.30); Basophils Percent Auto 0.4 % (0.0-3.0); Eosinophils Absolute Auto 0.32 K/uL (0.00-0.50); Eosinophils Percent Auto 3.3 % (0.0-7.0); Hematocrit 40.6 % (37.0-53.0); Hemoglobin* 13.4 gm/dL (13.5-17.5); Immature Granulocytes Abs Auto 0.02 K/uL (0.00-0.30); Immature Granulocytes Pct Auto 0.2 %; Lymphocytes Absolute Auto 2.93 K/uL (0.90-2.90); Lymphocytes Percent Auto 29.9 % (20-44); Mean Corpuscular HGB Conc 33 gm/dL (32-36); Mean Corpuscular Hemoglobin 29 pg (26-34); Mean Corpuscular Volume 87 fL (80-100); Monocytes Percent Auto 9.2 % (0.0-11.0); Platelet Count* 252 K/uL (140-440); RDW Coefficient of Variation % 13.3 % (11.5-15.5); Red Blood Count 4.69 m/uL (4.30-5.90); White Blood Count* 9.81 K/uL (4.50-11.00)
[2023-12-07 06:43] LABS: Slide Review Reflex Yes
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
[2023-12-07 07:32] LABS: INR 1.13 (0.91-1.10); Prothrombin Time 15.3 Seconds
--- NOTE | 2023-12-07 07:50 | PC.NURSE ---
END OF SHIFT NOTE: PT PLEASANT AND COOPERATIVE. A&Ox3. DENIES CP, SOB, N/V. AMBULATES INDEPENDENTLY. VSS ON RA; AFEBRILE. C/O RLQ PAIN 3-09/06; PT DECLINED PAIN MEDS. THIS MORNING DR. JOHNSTON REQUESTED ZOSYN TO BE ON IV POLE BUT NOT STARTED AND WILL START IN OR. PT SLEPT ON/OFF DURING HS. CALL LIGHT WITHIN PT?S REACH
[2023-12-07 08:00] LABS: Albumin* 3.8 g/dL (3.3-5.0)
[2023-12-07 08:01] LABS: Chloride* 108 mmol/L (96-114); Sodium* 138 mmol/L (135-149)
[2023-12-07 08:03] LABS: Creatinine* 1.2 mg/dL (0.5-1.5); Est. Creatinine Clearance* 77.73; Estimated Glomerular Filt Rate 75 ml/min
[2023-12-07 08:04] LABS: Alanine Aminotransferase* 49 U/L (4-50); Alkaline Phosphatase* 90 U/L (40-150); Anion Gap 6 mEq/L (7-15); Aspartate Amino Transferase* 30 U/L (12-35); Blood Urea Nitrogen* 11 mg/dL (5-24); Calcium* 8.6 mg/dL (8.4-10.6); Carbon Dioxide* 24 mmol/L (20-32); Glucose* 92 mg/dL (60-115); Magnesium* 1.9 mg/dL (1.5-2.6); Total Protein* 6.2 g/dL (6.0-8.3)
[2023-12-07 08:14] LABS: Slide Review Acceptable Review (Acceptable)
--- NOTE | 2023-12-07 09:21 | P.GSOP_ITS ---
Operative Note Date of procedure: 12/07/23 Pre-op diagnosis: 1. Acute recurrent appendicitis. Post-op diagnosis: Same Type of Procedure: 1. Laparoscopic appendectomy. Indications: 47-year-old male presented to emergency room with right lower quadrant abdominal pain. Patient says developed pain starting yesterday. He had nausea but no vom iting. During his workup he was found to have an elevated WBC of 17. An abdominal CT was obtained that showed wall enhancing prominent appendix with mild periappendiceal inflammation. There was no evidence of periappendiceal abscess. Patient had a similar presentation 3 weeks ago when he was diagnosed with acute appendicitis without appendicolith and acute tonsillitis/pharyngitis. At that time patient was treated with antibiotics and his pain resolved. Patient was doing well and his tonsillitis/pharyngitis also resolved. On clinical exam patient had tenderness to palpation in the right lower abdomen/right flank. There was no tenderness to palpation anywhere else. Patient also had small umbilical hernia noted. Given patient's clinical history and his recurrence of symptoms 3 weeks after his initial presentation, laparoscopic appendectomy was recommended. The procedure was discussed in detail. The risks associated procedure including infection, bleeding, injury to intra-abdominal organs, and possible need for additional procedures were all discussed with the patient, he agreed to proceed. Procedure Description: After discussing the risks and benefits of the procedure, the patient signed informed consent.? The operative site was marked and the patient was brought to the operating room and placed on the operating table in supine position.? Care was taken to pad the patient's pressure points.?? The patient was then intubated by anesthesia.?? The operative site was then prepped and draped in the usual sterile fashion.? A time-out was then performed. A 5-mm laparoscopy port was placed in the left upper quadrant guided by a 5-mm laparoscope placed into a translucent trochar. Passage through the layers of the abdominal wall was visualized with the laparoscope. A pneumoperitoneum was established. A 30-degree 5-mm laparoscope was advanced into the abdomen. The abdomen was briefly surveyed, and there was no evidence of diffuse peritonitis. A 12-mm port and a 5-mm port were placed in the left low quadrant and suprapubically, respectively, under direct visualization by laparoscope. Left upper quadrant entrance port was then examined intraabdominally by placing the camera through the left lower quadrant port and no intraabdominal injury was seen. Fat containing umbilical hernia was noted and omental fat was reduced from the hernia to allow better visualization of the entire abdomen. The patient was placed in Trendelenburg position, allowing the abdominal contents to shift cephalad. The small bowel was moved toward the midline in the abdomen. Interloop wispy adhesions were noted but those were not lysed. Appendix was visualized and was grasped. Appendix was attached to the lateral abdominal wall with inflammatory adhesions. Those were lysed bluntly. The appendix appeared to be dilated and inflamed. The appendix was grasped and dissected from the peritoneum using Harmonic scalpel. Appendiceal mesentery was skeletonized with Harmonic scalpel. Appendiceal vein and artery were noted. Those were clipped with vascular clips on the patient's side and divided with Harmonic scalpel near the appendix. The appendix was further skeletonized and dissected from appendiceal mesentery and mobilized off the lateral abdominal wall with Harmonic scalpel. When the appendiceal base was clearly identified, a vascular load of Endo-SAGAR stapler was advanced through the 12-mm port into the abdomen and appendix was stapled off at its base. The appendix was then placed in an endoscopic retrieval bag and extracted from the abdomen through the 12-mm port. The abdomen was surveyed for hemostasis. And no bleeding was seen. The 12-mm port was withdrawn and the fascial defect was closed with 0-0 Vicryl stitch using Shan Cinthia needle under direct visualization. The 5-mm port was removed under direct visualization. The left upper quadrant port was used to evacuate the pneumoperitoneum and then withdrawn. The skin incisions were closed with 4-0 monocryl. Steri-Strips were applied over the incisions. All counts were correct at the end of the case. The patient tolerated this procedure well and was transferred to PACU in stable condition. Findings: Dilated inflammed appendix Anesthesia: GETA Surgeon: Kelsie Palacios MD Estimated blood loss (mL): 5 Specimen: Appendix Condition: stable Disposition: PACU
[2023-12-07] MEDS: BUPIVACAINE 0.25% 30 ML INJECTION (10:30)
--- NOTE | 2023-12-07 10:43 | W.ANESCHARGE ---
Anesthesia Charges Start Date/Time Anesthesia Start Date: 12/07/23 Anesthesia Start Time: 09:18 Stop Date/Time Anesthesia Stop Date: 12/07/23 Anesthesia Stop Time: 10:50
--- NOTE | 2023-12-07 10:53 | W.ANESCHARGE ---
Anesthesia Charges Start Date/Time Anesthesia Start Date: 12/07/23 Anesthesia Start Time: 09:18 Stop Date/Time Anesthesia Stop Date: 12/07/23 Anesthesia Stop Time: 10:50
[2023-12-07] MEDS: fentaNYL 100 MCG/2 ML inj 50 MCG IVP (10:58)
--- NOTE | 2023-12-07 11:26 | PC.NURSE ---
Patient left the floor to OR at 913, patient will not return to floor after surgery. Patient vitally stable, lungs clear, BS WNL, IV running NS at 125. No pain meds given.
[2023-12-07] MEDS: HYDROCODONE-ACETAMIN 5-325 MG 1 TAB PO (11:31)
== END 2023-12-07 13:28 | disposition home or self-care (01) ==
LOC: ED 20:23 → SS 22:38 → MEDSURG 22:39
PROVIDERS: Student in an Organized Health Care Education/Training Program; Emergency Provider Student in an Organized Health Care Education/Training Program; PCP Family Medicine; Visit Provider Surgery
PROC: 0DTJ4ZZ Resection of Appendix, Percutaneous Endoscopic Approach (ICD-10-PCS; CPT 44970; principal; 2023-12-07 09:00)
DX: K35.80 Unspecified acute appendicitis (principal); R10.31 Right lower quadrant pain; Z82.49 Family history of ischemic heart disease and other diseases of the circulatory system; K57.90 Diverticulosis of intestine, part unspecified, without perforation or abscess without bleeding; R74.01 Elevation of levels of liver transaminase levels; E66.9 Obesity, unspecified; Z68.41 Body mass index [BMI] 40.0-44.9, adult
CPT/HCPCS: 44970; 00840; 36415; 74177; 80053; 81001; 83605; 83735; 85025; 85610; 88304; 99283; 99284; A9270; J0330; J0665; J1100; J1885; J2250; J2405; J2543; J2704; J2710; J3010; J7030; J7120; Q9967